=== PATIENT | male | born 1970 | race Caucasian/White ===

== ENCOUNTER 2017-10-15 05:17 | Inpatient (IN) | payer OTHER ==
[2017-10-15] MEDS ORDERED: ALBUTEROL SULFATE 2.5 MG/0.5 ML INH NEB SOLN As Ordered (05:53)
[2017-10-15] MEDS: ALBUTEROL SULFATE 2.5 MG/0.5 ML INH NEB SOLN NEB ×2 (05:57)
[2017-10-15] MEDS: methylPREDNISolone INJ 125 MG/2 ML VIAL (J2930) IV ×4 (06:00→23:51)
[2017-10-15 06:27] LABS: ABG BASE EXCESS 0.5 (-2.0-2.0); ABG HCO3 24.6 MEQ/L (22.0-26.0); ABG O2 SATURATION 98.6 % (95.0-99.0); ABG PARTIAL PRESSURE CO2 38.2 mmHg (35.0-45.0); ABG PARTIAL PRESSURE O2 130.5 mmHg (75.0-100.0); ABG STANDARD HCO3 24.9 MEQ/L (22.0-26.0); ABG TOTAL CO2 25.7 MEQ/L (22.0-29.0); ABG pH (ARTERIAL) 7.426 UNITS (7.350-7.450)
[2017-10-15] MEDS: CEFTRIAXONE SOD 2 GM in APPROPRIATE DILUENT 1 EA IV (06:30)
[2017-10-15 06:37] LABS: BASO # 0.1 10^3/uL (0.0-0.2); BASO % 0.4 % (0.0-1.0); HEMATOCRIT 51.8 % (42.0-52.0); HEMOGLOBIN 17.8 g/dl (14.0-18.0); IMMATURE GRANULOCYTE % 0.4 % (0-3.0); LYMPH # 1.2 10^3/uL (1.5-4.5); LYMPH % 5.4 % (24.0-44.0); MEAN CORPUSCULAR HEMOGLOBIN 31.7 pg (27.0-33.0); MEAN CORPUSCULAR HGB CONC 34.4 g/dl (32.0-36.5); MEAN CORPUSCULAR VOLUME 92.3 fl (80.0-96.0); MONO % 9.4 % (0.0-5.0); NEUTROPHILS # 18.9 10^3/uL (1.8-7.7); NEUTROPHILS % 84.4 % (36.0-66.0); PLATELET COUNT, AUTOMATED 315 10^3/uL (150-450); RED BLOOD COUNT 5.61 10^6/uL (4.30-6.10); RED CELL DISTRIBUTION WIDTH 13.1 % (11.5-14.5); WHITE BLOOD COUNT 22.4 10^3/uL (4.0-10.0)
[2017-10-15 06:40] LABS: MONO # 2.1 10^3/uL (0.0-0.8); POSITIVE DIFF POS FLAG
[2017-10-15 06:49] LABS: ANION GAP 7 MEQ/L (8-16); BLOOD UREA NITROGEN 10 MG/DL (7-18); CARBON DIOXIDE LEVEL 28 MEQ/L (21-32); CHLORIDE LEVEL 102 MEQ/L (98-107); CREATININE FOR GFR 0.81 MG/DL (0.70-1.30); GLOMERULAR FILTRATION RATE > 60.0 (>60); GLUCOSE, FASTING 138 MG/DL (70-100); POTASSIUM SERUM 4.5 MEQ/L (3.5-5.1); SODIUM LEVEL 137 MEQ/L (136-145)
[2017-10-15 06:53] LABS: LACTIC ACID SEPSIS PROTOCOL 1.2 MMOL/L (0.4-2.0)
[2017-10-15 07:18] LABS: ABG BASE EXCESS -0.7 (-2.0-2.0); ABG PARTIAL PRESSURE CO2 44.9 mmHg (35.0-45.0); ABG PARTIAL PRESSURE O2 66.1 mmHg (75.0-100.0); ABG STANDARD HCO3 23.7 MEQ/L (22.0-26.0); ABG TOTAL CO2 26.4 MEQ/L (22.0-29.0); ABG pH (ARTERIAL) 7.364 UNITS (7.350-7.450)
[2017-10-15] MEDS: LORazepam 2 MG/ML VIAL (J2060) IV (07:18)
[2017-10-15] MEDS ORDERED: ALBUTEROL SULFATE 2.5 MG/0.5 ML INH NEB SOLN INH (07:45)
[2017-10-15] MEDS ORDERED: ACETAMINOPHEN TAB 650MG DOSE (2X325MG) PO (07:45)
[2017-10-15] MEDS: NS 500 ML IV (07:45)
[2017-10-15] MEDS ORDERED: ONDANSETRON 4MG/2ML VIAL (J2405) IV (07:45)
[2017-10-15] MEDS ORDERED: ISOVUE-370 76% 100ML VIAL (Q9967) As Ordered (07:57)
[2017-10-15] MEDS: IPRATROPIUM 0.5MG/ALBUTEROL 2.5MG INH SOL UD 3ML (DUONEB)(J7620) NEB ×2 (08:00→20:02)
[2017-10-15 08:58] LABS: TROPONIN I < 0.02 NG/ML (< 0.10)
[2017-10-15 08:59] LABS: ALBUMIN 3.6 GM/DL (3.2-5.2); ALBUMIN/GLOBULIN RATIO 0.86 (1.00-1.93); ALKALINE PHOSPHATASE 85 U/L (45-117); ALT/SGPT 19 U/L (12-78); AST/SGOT 13 U/L (7-37); BILIRUBIN,DIRECT 0.2 MG/DL (0.0-0.2); BILIRUBIN,TOTAL 0.5 MG/DL (0.2-1.0); CK-MB VALUE MASS 1.9 NG/ML (0.0-3.6); CPK CREATINE PHOSPHOKINASE 66 U/L (39-308); MAGNESIUM LEVEL 2.2 MG/DL (1.8-2.4); MB/CK RELATIVE INDEX 2.87 (< OR =4); NT-PRO BNP 439 PG/ML (<125); TOTAL PROTEIN 7.8 GM/DL (6.4-8.2); TROPONIN I < 0.02 NG/ML (< 0.10)
[2017-10-15 09:00] LABS: CPK CREATINE PHOSPHOKINASE 67 U/L (39-308); MB/CK RELATIVE INDEX 2.98 (< OR =4)
[2017-10-15] MEDS: NICOTINE 21MG/24HR 1 EA TRANSDERMAL TD (09:00)
[2017-10-15] MEDS: AZITHROMYCIN INJ 500 MG, VIAL MATE ADAPTER 1 EACH in D5W 250 ML IV (09:16)
[2017-10-15] MEDS: PANTOPRAZOLE 40MG INJ (PROTONIX) (C9113) IV (09:16)
[2017-10-15] MEDS: NS 1,000 ML IV ×3 (09:56→23:53)
[2017-10-15] MEDS: ENOXAPARIN 40 MG/0.4 ML SYRINGE (J1650) SC (10:36)
[2017-10-16 04:26] LABS: HEMATOCRIT 46.3 % (42.0-52.0); MEAN CORPUSCULAR HEMOGLOBIN 31.6 pg (27.0-33.0); MEAN CORPUSCULAR HGB CONC 34.1 g/dl (32.0-36.5); MEAN CORPUSCULAR VOLUME 92.6 fl (80.0-96.0); PLATELET COUNT, AUTOMATED 317 10^3/uL (150-450); RED CELL DISTRIBUTION WIDTH 13.3 % (11.5-14.5); WHITE BLOOD COUNT 17.4 10^3/uL (4.0-10.0)
[2017-10-16 04:38] LABS: HEMOGLOBIN 15.8 g/dl (14.0-18.0)
[2017-10-16 04:50] LABS: ANION GAP 6 MEQ/L (8-16); BLOOD UREA NITROGEN 12 MG/DL (7-18); CALCIUM LEVEL 8.6 MG/DL (8.5-10.1); CARBON DIOXIDE LEVEL 30 MEQ/L (21-32); CHLORIDE LEVEL 105 MEQ/L (98-107); CREATININE FOR GFR 0.69 MG/DL (0.70-1.30); GLOMERULAR FILTRATION RATE > 60.0 (>60); GLUCOSE, FASTING 161 MG/DL (70-100); POTASSIUM SERUM 4.7 MEQ/L (3.5-5.1); SODIUM LEVEL 141 MEQ/L (136-145)
[2017-10-16] MEDS: CEFTRIAXONE SOD 2 GM in APPROPRIATE DILUENT 1 EA IV (06:12)
[2017-10-16] MEDS: methylPREDNISolone INJ 125 MG/2 ML VIAL (J2930) IV ×3 (06:12→17:44)
[2017-10-16] MEDS: AZITHROMYCIN INJ 500 MG, VIAL MATE ADAPTER 1 EACH in D5W 250 ML IV (07:36)
[2017-10-16] MEDS: PANTOPRAZOLE 40MG INJ (PROTONIX) (C9113) IV (08:40)
[2017-10-16] MEDS: ENOXAPARIN 40 MG/0.4 ML SYRINGE (J1650) SC (08:40)
[2017-10-16] MEDS: IPRATROPIUM 0.5MG/ALBUTEROL 2.5MG INH SOL UD 3ML (DUONEB)(J7620) NEB ×4 (08:49→20:00)
[2017-10-16] MEDS: NICOTINE 21MG/24HR 1 EA TRANSDERMAL TD (09:00)
[2017-10-16] MEDS: NS 1,000 ML IV (10:44)
[2017-10-17] MEDS: methylPREDNISolone INJ 125 MG/2 ML VIAL (J2930) IV ×5 (00:20→23:53)
[2017-10-17 05:56] LABS: HEMATOCRIT 45.1 % (42.0-52.0); HEMOGLOBIN 14.9 g/dl (14.0-18.0); MEAN CORPUSCULAR HEMOGLOBIN 31.5 pg (27.0-33.0); MEAN CORPUSCULAR VOLUME 95.3 fl (80.0-96.0); PLATELET COUNT, AUTOMATED 342 10^3/uL (150-450); RED BLOOD COUNT 4.73 10^6/uL (4.30-6.10); RED CELL DISTRIBUTION WIDTH 13.2 % (11.5-14.5); WHITE BLOOD COUNT 24.7 10^3/uL (4.0-10.0)
[2017-10-17 06:12] LABS: ANION GAP 3 MEQ/L (8-16); BLOOD UREA NITROGEN 13 MG/DL (7-18); CALCIUM LEVEL 8.5 MG/DL (8.5-10.1); CARBON DIOXIDE LEVEL 33 MEQ/L (21-32); CHLORIDE LEVEL 104 MEQ/L (98-107); GLOMERULAR FILTRATION RATE > 60.0 (>60); GLUCOSE, FASTING 136 MG/DL (70-100); POTASSIUM SERUM 4.4 MEQ/L (3.5-5.1); SODIUM LEVEL 140 MEQ/L (136-145)
[2017-10-17] MEDS: CEFTRIAXONE SOD 2 GM in APPROPRIATE DILUENT 1 EA IV (06:37)
[2017-10-17] MEDS: AZITHROMYCIN INJ 500 MG, VIAL MATE ADAPTER 1 EACH in D5W 250 ML IV (07:55)
[2017-10-17] MEDS: ENOXAPARIN 40 MG/0.4 ML SYRINGE (J1650) SC (07:55)
[2017-10-17] MEDS: NICOTINE 21MG/24HR 1 EA TRANSDERMAL TD (07:56)
[2017-10-17] MEDS: IPRATROPIUM 0.5MG/ALBUTEROL 2.5MG INH SOL UD 3ML (DUONEB)(J7620) NEB ×3 (08:07→20:08)
[2017-10-18] MEDS: CEFTRIAXONE SOD 2 GM in APPROPRIATE DILUENT 1 EA IV (06:06)
[2017-10-18] MEDS: methylPREDNISolone INJ 125 MG/2 ML VIAL (J2930) IV ×3 (06:06→17:12)
[2017-10-18 06:12] LABS: HEMATOCRIT 43.5 % (42.0-52.0); HEMOGLOBIN 14.5 g/dl (14.0-18.0); MEAN CORPUSCULAR HEMOGLOBIN 31.8 pg (27.0-33.0); MEAN CORPUSCULAR HGB CONC 33.3 g/dl (32.0-36.5); MEAN CORPUSCULAR VOLUME 95.4 fl (80.0-96.0); PLATELET COUNT, AUTOMATED 341 10^3/uL (150-450); RED BLOOD COUNT 4.56 10^6/uL (4.30-6.10); RED CELL DISTRIBUTION WIDTH 13.2 % (11.5-14.5)
[2017-10-18 06:46] LABS: ANION GAP 5 MEQ/L (8-16); BLOOD UREA NITROGEN 17 MG/DL (7-18); CALCIUM LEVEL 8.5 MG/DL (8.5-10.1); CARBON DIOXIDE LEVEL 34 MEQ/L (21-32); CHLORIDE LEVEL 104 MEQ/L (98-107); CREATININE FOR GFR 0.74 MG/DL (0.70-1.30); GLOMERULAR FILTRATION RATE > 60.0 (>60); GLUCOSE, FASTING 133 MG/DL (70-100); POTASSIUM SERUM 4.1 MEQ/L (3.5-5.1); SODIUM LEVEL 143 MEQ/L (136-145)
[2017-10-18] MEDS: IPRATROPIUM 0.5MG/ALBUTEROL 2.5MG INH SOL UD 3ML (DUONEB)(J7620) NEB ×4 (07:24→20:59)
[2017-10-18] MEDS: ENOXAPARIN 40 MG/0.4 ML SYRINGE (J1650) SC (08:42)
[2017-10-18] MEDS: NICOTINE 21MG/24HR 1 EA TRANSDERMAL TD (08:42)
[2017-10-19] MEDS: methylPREDNISolone INJ 125 MG/2 ML VIAL (J2930) IV ×5 (00:30→23:21)
[2017-10-19] MEDS: CEFTRIAXONE SOD 2 GM in APPROPRIATE DILUENT 1 EA IV (06:34)
[2017-10-19 06:35] LABS: HEMATOCRIT 43.5 % (42.0-52.0); HEMOGLOBIN 14.6 g/dl (14.0-18.0); MEAN CORPUSCULAR HEMOGLOBIN 31.7 pg (27.0-33.0); MEAN CORPUSCULAR HGB CONC 33.6 g/dl (32.0-36.5); MEAN CORPUSCULAR VOLUME 94.4 fl (80.0-96.0); PLATELET COUNT, AUTOMATED 343 10^3/uL (150-450); RED BLOOD COUNT 4.61 10^6/uL (4.30-6.10); RED CELL DISTRIBUTION WIDTH 12.9 % (11.5-14.5); WHITE BLOOD COUNT 16.1 10^3/uL (4.0-10.0)
[2017-10-19 06:49] LABS: ANION GAP 4 MEQ/L (8-16); BLOOD UREA NITROGEN 16 MG/DL (7-18); CALCIUM LEVEL 8.9 MG/DL (8.5-10.1); CARBON DIOXIDE LEVEL 35 MEQ/L (21-32); CHLORIDE LEVEL 100 MEQ/L (98-107); CREATININE FOR GFR 0.59 MG/DL (0.70-1.30); GLOMERULAR FILTRATION RATE > 60.0 (>60); GLUCOSE, FASTING 122 MG/DL (70-100); POTASSIUM SERUM 4.4 MEQ/L (3.5-5.1); SODIUM LEVEL 139 MEQ/L (136-145)
[2017-10-19] MEDS: IPRATROPIUM 0.5MG/ALBUTEROL 2.5MG INH SOL UD 3ML (DUONEB)(J7620) NEB ×3 (07:42→14:48)
[2017-10-19 08:07] LABS: ALPHA 1 ANTITRYPSIN 109 mg/dL (90-200)
[2017-10-19] MEDS: ENOXAPARIN 40 MG/0.4 ML SYRINGE (J1650) SC (09:35)
[2017-10-19] MEDS: NICOTINE 21MG/24HR 1 EA TRANSDERMAL TD (09:37)
[2017-10-20] MEDS: IPRATROPIUM 0.5MG/ALBUTEROL 2.5MG INH SOL UD 3ML (DUONEB)(J7620) NEB ×5 (00:07→19:53)
[2017-10-20] MEDS: methylPREDNISolone INJ 125 MG/2 ML VIAL (J2930) IV ×4 (06:03→23:56)
[2017-10-20] MEDS: CEFTRIAXONE SOD 2 GM in APPROPRIATE DILUENT 1 EA IV (06:04)
[2017-10-20 07:56] LABS: HEMATOCRIT 44.4 % (42.0-52.0); HEMOGLOBIN 15.2 g/dl (14.0-18.0); MEAN CORPUSCULAR HEMOGLOBIN 31.7 pg (27.0-33.0); MEAN CORPUSCULAR HGB CONC 34.2 g/dl (32.0-36.5); MEAN CORPUSCULAR VOLUME 92.7 fl (80.0-96.0); PLATELET COUNT, AUTOMATED 338 10^3/uL (150-450); RED BLOOD COUNT 4.79 10^6/uL (4.30-6.10); RED CELL DISTRIBUTION WIDTH 12.8 % (11.5-14.5); WHITE BLOOD COUNT 12.7 10^3/uL (4.0-10.0)
[2017-10-20 08:09] LABS: ANION GAP 4 MEQ/L (8-16); BLOOD UREA NITROGEN 17 MG/DL (7-18); CALCIUM LEVEL 8.7 MG/DL (8.5-10.1); CARBON DIOXIDE LEVEL 33 MEQ/L (21-32); CHLORIDE LEVEL 99 MEQ/L (98-107); CREATININE FOR GFR 0.64 MG/DL (0.70-1.30); GLOMERULAR FILTRATION RATE > 60.0 (>60); GLUCOSE, FASTING 112 MG/DL (70-100); POTASSIUM SERUM 4.2 MEQ/L (3.5-5.1); SODIUM LEVEL 136 MEQ/L (136-145)
[2017-10-20] MEDS: NICOTINE 21MG/24HR 1 EA TRANSDERMAL TD (09:00)
[2017-10-20] MEDS: ENOXAPARIN 40 MG/0.4 ML SYRINGE (J1650) SC (09:25)
[2017-10-20] MEDS: SLF 3 ML SYR IV (23:56)
[2017-10-21 00:06] LABS: A1A FOR PHENOTYPE 108 mg/dL (90-200); ALPHA-1-ANTITRYPSIN PHENOTYPE MZ (.)
[2017-10-21] MEDS: methylPREDNISolone INJ 125 MG/2 ML VIAL (J2930) IV ×2 (06:44→18:20)
[2017-10-21] MEDS: CEFTRIAXONE SOD 2 GM in APPROPRIATE DILUENT 1 EA IV (06:44)
[2017-10-21] MEDS: SLF 3 ML SYR IV ×4 (06:45→21:19)
[2017-10-21 06:55] LABS: HEMATOCRIT 45.4 % (42.0-52.0); HEMOGLOBIN 15.4 g/dl (14.0-18.0); MEAN CORPUSCULAR HEMOGLOBIN 31.7 pg (27.0-33.0); MEAN CORPUSCULAR HGB CONC 33.9 g/dl (32.0-36.5); MEAN CORPUSCULAR VOLUME 93.4 fl (80.0-96.0); PLATELET COUNT, AUTOMATED 359 10^3/uL (150-450); RED BLOOD COUNT 4.86 10^6/uL (4.30-6.10); RED CELL DISTRIBUTION WIDTH 12.8 % (11.5-14.5); WHITE BLOOD COUNT 18.6 10^3/uL (4.0-10.0)
[2017-10-21 07:18] LABS: ANION GAP 4 MEQ/L (8-16); BLOOD UREA NITROGEN 20 MG/DL (7-18); CALCIUM LEVEL 8.8 MG/DL (8.5-10.1); CARBON DIOXIDE LEVEL 34 MEQ/L (21-32); CHLORIDE LEVEL 102 MEQ/L (98-107); CREATININE FOR GFR 0.81 MG/DL (0.70-1.30); GLOMERULAR FILTRATION RATE > 60.0 (>60); GLUCOSE, FASTING 120 MG/DL (70-100); POTASSIUM SERUM 4.3 MEQ/L (3.5-5.1); SODIUM LEVEL 140 MEQ/L (136-145)
[2017-10-21] MEDS: IPRATROPIUM 0.5MG/ALBUTEROL 2.5MG INH SOL UD 3ML (DUONEB)(J7620) NEB ×4 (07:32→20:00)
[2017-10-21] MEDS: NICOTINE 21MG/24HR 1 EA TRANSDERMAL TD (08:48)
[2017-10-21] MEDS: ENOXAPARIN 40 MG/0.4 ML SYRINGE (J1650) SC (08:48)
[2017-10-22] MEDS: methylPREDNISolone INJ 125 MG/2 ML VIAL (J2930) IV ×2 (05:48→18:04)
[2017-10-22] MEDS: SLF 3 ML SYR IV ×4 (05:49→20:39)
[2017-10-22] MEDS: CEFTRIAXONE SOD 2 GM in APPROPRIATE DILUENT 1 EA IV (06:45)
[2017-10-22 07:20] LABS: HEMATOCRIT 44.1 % (42.0-52.0); HEMOGLOBIN 15.3 g/dl (14.0-18.0); MEAN CORPUSCULAR HEMOGLOBIN 32.1 pg (27.0-33.0); MEAN CORPUSCULAR HGB CONC 34.7 g/dl (32.0-36.5); MEAN CORPUSCULAR VOLUME 92.6 fl (80.0-96.0); PLATELET COUNT, AUTOMATED 352 10^3/uL (150-450); RED BLOOD COUNT 4.76 10^6/uL (4.30-6.10); RED CELL DISTRIBUTION WIDTH 12.9 % (11.5-14.5); WHITE BLOOD COUNT 14.8 10^3/uL (4.0-10.0)
[2017-10-22 07:42] LABS: ANION GAP 6 MEQ/L (8-16); BLOOD UREA NITROGEN 17 MG/DL (7-18); CALCIUM LEVEL 8.2 MG/DL (8.5-10.1); CARBON DIOXIDE LEVEL 31 MEQ/L (21-32); CHLORIDE LEVEL 101 MEQ/L (98-107); CREATININE FOR GFR 0.62 MG/DL (0.70-1.30); GLOMERULAR FILTRATION RATE > 60.0 (>60); GLUCOSE, FASTING 83 MG/DL (70-100); POTASSIUM SERUM 4.1 MEQ/L (3.5-5.1); SODIUM LEVEL 138 MEQ/L (136-145)
[2017-10-22] MEDS: IPRATROPIUM 0.5MG/ALBUTEROL 2.5MG INH SOL UD 3ML (DUONEB)(J7620) NEB (08:13)
[2017-10-22] MEDS: ENOXAPARIN 40 MG/0.4 ML SYRINGE (J1650) SC (08:26)
[2017-10-22] MEDS: NICOTINE 21MG/24HR 1 EA TRANSDERMAL TD (08:26)
[2017-10-23] MEDS: CEFTRIAXONE SOD 2 GM in APPROPRIATE DILUENT 1 EA IV (06:06)
[2017-10-23] MEDS: SLF 3 ML SYR IV (06:06)
[2017-10-23] MEDS: predniSONE 20 MG TAB PO (08:02)
== END 2017-10-23 09:30 | disposition home or self-care (01) | DRG 193 ==
LOC: M MSPAV 10-16 17:12 → M PED 10-19 22:49 → M ED 05:17 → M ED INP 07:42 → M ICU 10:42
DX: J10.1 Influenza due to other identified influenza virus with other respiratory manifestations (principal); J96.01 Acute respiratory failure with hypoxia; J44.1 Chronic obstructive pulmonary disease with (acute) exacerbation; J44.0 Chronic obstructive pulmonary disease with (acute) lower respiratory infection; F17.210 Nicotine dependence, cigarettes, uncomplicated; Z79.82 Long term (current) use of aspirin; Z79.899 Other long term (current) drug therapy

== ENCOUNTER 2018-10-14 16:27 | Inpatient (IN) | payer OTHER ==
[~2018-10-14] VITALS: Ht 167.6 cm; Wt 67.6 kg
[~2018-10-14 16:27] MED LIST: ASPI81TAEC PO; CEFD1CAP8 PO; PRED10TA2 PO; VITA-121 PO; [UNRECOGNIZED DRUG - CODE] PO
[2018-10-14 16:40] LABS: HEMATOCRIT 45.3 % (42.0-52.0); HEMOGLOBIN 15.6 g/dl (13.5-17.5); MEAN CORPUSCULAR HEMOGLOBIN 32.9 pg (27.0-33.0); MEAN CORPUSCULAR HGB CONC 34.4 g/dl (32.0-36.5); MEAN CORPUSCULAR VOLUME 95.6 fl (80.0-96.0); PLATELET COUNT, AUTOMATED 214 10^3/uL (150-450); RED BLOOD COUNT 4.74 10^6/uL (4.30-6.10)
[2018-10-14 16:41] LABS: WHITE BLOOD COUNT 12.9 10^3/uL (4.0-10.0)
[2018-10-14] MEDS ORDERED: ISOVUE-370 76% 100ML VIAL (Q9967) As Ordered ONE (16:41)
[2018-10-14] MEDS ORDERED: ADACEL/BOOSTRIX VACCINE (DIPHTH/PERTUSS/ACELL/TETANUS)0.5ML SYR (90715) IM ONE (16:45)
[2018-10-14] MEDS ORDERED: NS 1,000 ML IV ONE ×2 (16:45)
[2018-10-14 16:50] LABS: INR 0.94; PROTHROMBIN TIME 12.7 SECONDS (12.1-14.4)
[2018-10-14 16:51] LABS: PARTIAL THROMBOPLASTIN TIME 22.5 SECONDS (25.4-37.6)
[2018-10-14 17:00] LABS: ATYPICAL LYMPH 6 % (0-5); EOSINOPHILS 3 % (0-5); LYMPHOCYTES 47 % (16-52); MONOCYTES 3 % (0-8); NEUTROPHILS 41 % (35-75); PLATELET ESTIMATE NORMAL (NORMAL)
[2018-10-14 17:03] LABS: ALBUMIN 3.6 GM/DL (3.2-5.2); ALT/SGPT 18 U/L (12-78); AMYLASE 37 U/L (25-115); BILIRUBIN,DIRECT 0.2 MG/DL (0.0-0.2); BILIRUBIN,TOTAL 0.7 MG/DL (0.2-1.0); BLOOD UREA NITROGEN 9 MG/DL (7-18); CALCIUM LEVEL 7.6 MG/DL (8.5-10.1); CARBON DIOXIDE LEVEL 20 MEQ/L (21-32); CHLORIDE LEVEL 108 MEQ/L (98-107); CPK CREATINE PHOSPHOKINASE 100 U/L (39-308); CREATININE FOR GFR 0.88 MG/DL (0.70-1.30); ETHYL ALCOHOL (ETHANOL) 0.044 % (0.000-0.010); GLOMERULAR FILTRATION RATE > 60.0 (>60); GLUCOSE, FASTING 92 MG/DL (70-100); LIPASE 156 U/L (73-393); POTASSIUM SERUM 3.2 MEQ/L (3.5-5.1); SODIUM LEVEL 138 MEQ/L (136-145); TOTAL PROTEIN 5.5 GM/DL (6.4-8.2); TROPONIN I 0.02 NG/ML (< 0.10)
[2018-10-14] MEDS ORDERED: NS 1,000 ML IV SCH (17:05)
--- NOTE | 2018-10-14 17:17 | REP ---
CT of the chest with IV contrast: There is an anterior chest wall wound to the right of midline over the heart. There is focal soft tissue density interposed between the heart and the anterior chest wall which may represent a mediastinal hematoma. No other mediastinal hematoma is identified. There is a pericardial effusion measuring 12 mm in depth posteriorly and 4 mm in depth anteriorly. There is a focal crescentic shaped thin air collection over the anterior margin of the heart on image 96. This could represent a pneumomediastinum or pneumopericardium. There is no pneumothorax. There is no hemothorax. Lung rosales otherwise clear. The thoracic aorta is unremarkable. Cardiac size is normal. No rib or sternal fractures are identified. No clavicle or scapular fractures are identified. Impression: Anterior chest wall wound to the right of midline at the level of the heart. Focal soft tissue density in the anterior mediastinum anterior to the heart on the right, likely a mediastinal hematoma. Small pericardial effusion. Sliver of air in the anterior mediastinum. This could be a pneumomediastinum or pneumopericardium. No pneumothorax or hemothorax. Lung rosales otherwise clear. The ground-glass densities identified on the prior study are no longer present. No fractures are identified. Electronically Signed by Wenceslao Kimble MD 10/14/2018 05:08 P
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
[2018-10-14 17:56] LABS: AMPHETAMINES LEVEL URINE NEGATIVE (NEGATIVE); BARBITURATES URINE NEGATIVE (NEGATIVE); BENZODIAZEPINES URINE NEGATIVE (NEGATIVE); CANNABINOIDS URINE NEGATIVE (NEGATIVE); COCAINE METABOLITE URINE NEGATIVE (NEGATIVE); METHADONE URINE NEGATIVE (NEGATIVE); OPIATES URINE NEGATIVE (NEGATIVE); PHENCYCLIDINE URINE NEGATIVE (NEGATIVE)
[2018-10-14] MEDS ORDERED: METAL LOCK LOOP XX ONE (18:00)
[2018-10-14] MEDS ORDERED: VITA1CAP2 PO (18:09)
[2018-10-14] MEDS ORDERED: ANOR1AER INH (18:09)
[2018-10-14] MEDS ORDERED: IBUPOTC PO (18:09)
[2018-10-14] MEDS ORDERED: MUPIROCIN 2% OINT 22 GM TUBE As Ordered ONE (18:13)
[2018-10-14] MEDS ORDERED: BUPIVACAINE LIPOSOME/PF 1.3% 20ML VIAL (13.3MG/ML)(EXPAREL)(C9290 PER1MG) As Ordered ONE (18:13)
[2018-10-14] MEDS ORDERED: BUPIVACAINE HCL 0.5% 10 ML VIAL As Ordered ONE (18:13)
[2018-10-14] MEDS ORDERED: MIDAZOLAM INJ 2 MG/2 ML VIAL (J2250) As Ordered ONE (19:03)
[2018-10-14] MEDS ORDERED: PROPOFOL 200 MG/20 ML VIAL As Ordered ONE (19:03)
[2018-10-14] MEDS ORDERED: fentaNYL 100 MCG/2 ML INJECTION (J3010) As Ordered ONE ×3 (19:03→21:21)
[2018-10-14] MEDS ORDERED: LIDOCAINE 2% INJ 100 MG/5 ML SDV (FOR ANES.) As Ordered ONE (19:03)
[2018-10-14] MEDS ORDERED: ROCURONIUM BROMIDE 50 MG/5 ML VIAL As Ordered ONE ×2 (19:05→19:39)
[2018-10-14] MEDS ORDERED: ePHEDrine SULFATE 25 MG/5 ML(5MG/ML) SYRINGE As Ordered ONE (19:05)
[2018-10-14] MEDS ORDERED: PHENYLephrine HCL 500 MCG/5 ML (100MCG/ML) SYRINGE (J2370) As Ordered ONE (19:05)
[2018-10-14] MEDS ORDERED: SUCCINYLCHOLINE 100 MG/5 ML SYRINGE (J0330) As Ordered ONE (19:06)
[2018-10-14] MEDS ORDERED: ceFAZolin 2 GM/D5W 50 ML IV BAG (J0690 PER 500MG) As Ordered ONE (19:13)
[2018-10-14] MEDS ORDERED: KCL 10MEQ IN STERILE WATER 100ML As Ordered ONE (19:54)
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
[2018-10-14] MEDS ORDERED: ONDANSETRON 4MG/2ML VIAL (J2405) As Ordered ONE (20:07)
[2018-10-14] MEDS ORDERED: dexameTHASONE 4 MG/ML 1ML VIAL (J1100) As Ordered ONE (20:07)
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
[2018-10-14] MEDS ORDERED: SUGAMMADEX SODIUM 500 MG/5 ML VIAL (BRIDION) As Ordered ONE (20:21)
[2018-10-14] MEDS ORDERED: LEVALBUTEROL 1.25 MG/0.5 ML CONCENTRATE NEB NEB PRN (21:00)
[2018-10-14] MEDS ORDERED: PERCOCET 5MG/325MG TAB PO PRN ×3 (21:00→22:45)
[2018-10-14] MEDS ORDERED: ACETAMINOPHEN TAB 650MG DOSE (2X325MG) PO PRN (21:00)
[2018-10-14] MEDS ORDERED: ONDANSETRON 4MG/2ML VIAL (J2405) IV PRN ×2 (21:00→22:45)
[2018-10-14] MEDS ORDERED: BISACODYL 10 MG SUPP PR PRN (21:00)
[2018-10-14] MEDS ORDERED: NORCO, ANEXSIA 5/325MG TABLET (HYDROcodone/ACETAMINOPHEN) PO PRN (21:00)
[2018-10-14] MEDS: fentaNYL 100 MCG/2 ML INJECTION (J3010) IV PRN ×4 (21:20→21:37)
[2018-10-14 21:38] LABS: ABG HCO3 19.5 MEQ/L (22.0-26.0); ABG O2 SATURATION 93.8 % (95.0-99.0); ABG PARTIAL PRESSURE CO2 42.7 mmHg (35.0-45.0); ABG PARTIAL PRESSURE O2 75.8 mmHg (75.0-100.0); ABG STANDARD HCO3 18.7 MEQ/L (22.0-26.0); ABG TOTAL CO2 20.8 MEQ/L (22.0-29.0); ABG pH (ARTERIAL) 7.277 UNITS (7.350-7.450)
[2018-10-14 21:45] LABS: BASO # 0.1 10^3/uL (0.0-0.2); BASO % 0.5 % (0.0-1.0); EOS # 0.2 10^3/uL (0.0-0.50); EOS % 1.1 % (0.0-3.0); LYMPH # 1.8 10^3/uL (1.5-4.5); LYMPH % 12.5 % (24.0-44.0); MEAN CORPUSCULAR HEMOGLOBIN 32.8 pg (27.0-33.0); MEAN CORPUSCULAR HGB CONC 33.6 g/dl (32.0-36.5); MEAN CORPUSCULAR VOLUME 97.5 fl (80.0-96.0); MONO # 0.7 10^3/uL (0.0-0.8); MONO % 4.7 % (0.0-5.0); NEUTROPHILS # 11.7 10^3/uL (1.8-7.7); NEUTROPHILS % 80.3 % (36.0-66.0); PLATELET COUNT, AUTOMATED 185 10^3/uL (150-450); WHITE BLOOD COUNT 14.5 10^3/uL (4.0-10.0)
[2018-10-14 21:48] LABS: HEMOGLOBIN 13.1 g/dl (13.5-17.5)
[2018-10-14 21:59] LABS: BLOOD UREA NITROGEN 8 MG/DL (7-18); CALCIUM LEVEL 7.5 MG/DL (8.5-10.1); CARBON DIOXIDE LEVEL 22 MEQ/L (21-32); CHLORIDE LEVEL 107 MEQ/L (98-107); GLOMERULAR FILTRATION RATE > 60.0 (>60); GLUCOSE, FASTING 117 MG/DL (70-100); SODIUM LEVEL 136 MEQ/L (136-145)
[2018-10-14] MEDS ORDERED: METOCLOPRAMIDE INJ 10MG/2ML VIAL (J2765) IV PRN (22:45)
[2018-10-14] MEDS ORDERED: MEPERIDINE INJ 25 MG/ML VIAL (J2175) IV PRN (22:45)
[2018-10-14] MEDS ORDERED: LR 1,000 ML IV SCH (22:45)
[2018-10-14 22:50] VITALS: BP 110/72
[2018-10-14 23:00] VITALS: BP 102/69
[2018-10-14] MEDS: KCL 20MEQ IN D5/NS 1000ML 1,000 ML IV SCH (23:01)
[2018-10-14] MEDS: DOCUSATE SODIUM 100 MG CAP PO SCH (23:13)
[2018-10-14] MEDS: HEPARIN SOD (PORCINE) 5000 UNITS/ML VIAL SC SCH (23:13)
[2018-10-15] VITALS (7 sets, daily range): BP systolic 92–120; BP diastolic 59–76
[2018-10-15] MEDS: KETOROLAC 30 MG/ML VIAL (J1885) IV SCH ×4 (00:05→18:17)
[2018-10-15] MEDS: ceFAZolin SOD 1 GM in D5W MINI-BAG PLUS 50 ML IV SCH ×3 (02:07→18:16)
[2018-10-15] MEDS: LEVALBUTEROL 1.25 MG/0.5 ML CONCENTRATE NEB NEB SCH ×4 (02:09→20:18)
[2018-10-15 04:30] LABS: BASO # 0.1 10^3/uL (0.0-0.2); BASO % 0.3 % (0.0-1.0); EOS % 0.1 % (0.0-3.0); HEMATOCRIT 40.4 % (42.0-52.0); HEMOGLOBIN 13.5 g/dl (13.5-17.5); LYMPH # 1.2 10^3/uL (1.5-4.5); LYMPH % 8.3 % (24.0-44.0); MEAN CORPUSCULAR HEMOGLOBIN 32.1 pg (27.0-33.0); MEAN CORPUSCULAR HGB CONC 33.4 g/dl (32.0-36.5); MONO # 0.9 10^3/uL (0.0-0.8); MONO % 6.3 % (0.0-5.0); NEUTROPHILS # 12.2 10^3/uL (1.8-7.7); NEUTROPHILS % 84.6 % (36.0-66.0); PLATELET COUNT, AUTOMATED 184 10^3/uL (150-450); RED BLOOD COUNT 4.21 10^6/uL (4.30-6.10); WHITE BLOOD COUNT 14.4 10^3/uL (4.0-10.0)
[2018-10-15 04:46] LABS: BLOOD UREA NITROGEN 8 MG/DL (7-18); CALCIUM LEVEL 7.6 MG/DL (8.5-10.1); CARBON DIOXIDE LEVEL 23 MEQ/L (21-32); CHLORIDE LEVEL 108 MEQ/L (98-107); CREATININE FOR GFR 0.87 MG/DL (0.70-1.30); GLOMERULAR FILTRATION RATE > 60.0 (>60); GLUCOSE, FASTING 171 MG/DL (70-100); POTASSIUM SERUM 4.3 MEQ/L (3.5-5.1); SODIUM LEVEL 135 MEQ/L (136-145)
[2018-10-15 05:32] LABS: ABG BASE EXCESS -2.8 (-2.0-2.0); ABG HCO3 21.9 MEQ/L (22.0-26.0); ABG O2 SATURATION 96.8 % (95.0-99.0); ABG PARTIAL PRESSURE O2 86.5 mmHg (75.0-100.0); ABG STANDARD HCO3 22.1 MEQ/L (22.0-26.0); ABG pH (ARTERIAL) 7.378 UNITS (7.350-7.450)
[2018-10-15] MEDS: TIOTROPIUM INHALER/CAPSULE (SPIRIVA) INH SCH (08:01)
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
[2018-10-15] MEDS: MOM 30ML SUSPENSION UDC PO SCH (09:00)
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
[2018-10-15] MEDS: PANTOPRAZOLE 40MG TAB (PROTONIX) PO SCH (09:28)
[2018-10-15] MEDS: HEPARIN SOD (PORCINE) 5000 UNITS/ML VIAL SC SCH ×2 (09:28→21:14)
[2018-10-15] MEDS: DOCUSATE SODIUM 100 MG CAP PO SCH ×2 (09:28→20:23)
[2018-10-15] MEDS: KCL 20MEQ IN D5/NS 1000ML 1,000 ML IV SCH (10:20)
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
--- NOTE | 2018-10-15 19:30 | ECGEPIP ---
Stationary ECG Study [facility] - ED Test Date: 2018-10-14 Pat Name: KEITH OAKES Department: Room: [place] [address] Gender: M [employer] R[employer] Clerk: vick : 1970 Requested By: OG Shields Order Number: [id number] Reading MD: Luda Bowman Measurements Intervals [place] Rate: 70 P: 80 SC: 158 QRS: 80 QRSD: 118 T: 51 QT: 399 QTc: 431 Interpretive Statements SINUS RHYTHM INDETERMINATE AXIS INCOMPLETE RIGHT BUNDLE BRANCH BLOCK PROBABLE INFERIOR MYOCARDIAL INFARCTION, PROBABLY OLD NO PRIOR FOR COMPARISON Electronically Signed On 10-15-2018 19:30:15 EST by Luda Bowman
[2018-10-16] VITALS: BP 100/64
[2018-10-16] MEDS: KCL 20MEQ IN D5/NS 1000ML 1,000 ML IV SCH (00:24)
[2018-10-16] MEDS: KETOROLAC 30 MG/ML VIAL (J1885) IV SCH ×4 (00:25→18:07)
[2018-10-16] MEDS: LEVALBUTEROL 1.25 MG/0.5 ML CONCENTRATE NEB NEB SCH ×4 (01:45→20:19)
[2018-10-16] MEDS: ceFAZolin SOD 1 GM in D5W MINI-BAG PLUS 50 ML IV SCH ×3 (03:08→18:07)
[2018-10-16 04:00] VITALS: BP 103/66
[2018-10-16 05:04] LABS: BASO % 0.3 % (0.0-1.0); EOS # 0.1 10^3/uL (0.0-0.50); EOS % 0.7 % (0.0-3.0); HEMATOCRIT 36.2 % (42.0-52.0); HEMOGLOBIN 12.1 g/dl (13.5-17.5); LYMPH # 1.9 10^3/uL (1.5-4.5); LYMPH % 16.2 % (24.0-44.0); MEAN CORPUSCULAR HEMOGLOBIN 32.4 pg (27.0-33.0); MEAN CORPUSCULAR HGB CONC 33.4 g/dl (32.0-36.5); MEAN CORPUSCULAR VOLUME 96.8 fl (80.0-96.0); MONO # 0.9 10^3/uL (0.0-0.8); MONO % 7.6 % (0.0-5.0); NEUTROPHILS # 8.7 10^3/uL (1.8-7.7); NEUTROPHILS % 74.7 % (36.0-66.0); PLATELET COUNT, AUTOMATED 162 10^3/uL (150-450); RED BLOOD COUNT 3.74 10^6/uL (4.30-6.10); WHITE BLOOD COUNT 11.7 10^3/uL (4.0-10.0)
[2018-10-16 05:18] LABS: BLOOD UREA NITROGEN 11 MG/DL (7-18); CALCIUM LEVEL 7.8 MG/DL (8.5-10.1); CARBON DIOXIDE LEVEL 27 MEQ/L (21-32); CHLORIDE LEVEL 109 MEQ/L (98-107); CREATININE FOR GFR 0.89 MG/DL (0.70-1.30); GLOMERULAR FILTRATION RATE > 60.0 (>60); GLUCOSE, FASTING 121 MG/DL (70-100); POTASSIUM SERUM 4.5 MEQ/L (3.5-5.1); SODIUM LEVEL 139 MEQ/L (136-145)
[2018-10-16] MEDS: TIOTROPIUM INHALER/CAPSULE (SPIRIVA) INH SCH (07:30)
[2018-10-16 08:00] VITALS: BP 97/74
[2018-10-16] MEDS: HEPARIN SOD (PORCINE) 5000 UNITS/ML VIAL SC SCH ×2 (08:52→21:13)
[2018-10-16] MEDS: MOM 30ML SUSPENSION UDC PO SCH (08:52)
[2018-10-16] MEDS: PANTOPRAZOLE 40MG TAB (PROTONIX) PO SCH (08:52)
[2018-10-16] MEDS: DOCUSATE SODIUM 100 MG CAP PO SCH ×2 (08:52→21:13)
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
[2018-10-16 12:00] VITALS: BP 102/69
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
[2018-10-16 16:00] VITALS: BP 98/68
[2018-10-16 20:00] VITALS: BP 107/63
[2018-10-17] VITALS: BP 106/63
[2018-10-17] MEDS: KETOROLAC 30 MG/ML VIAL (J1885) IV SCH ×4 (00:40→18:00)
[2018-10-17] MEDS: LEVALBUTEROL 1.25 MG/0.5 ML CONCENTRATE NEB NEB SCH ×4 (00:47→19:50)
[2018-10-17 04:00] VITALS: BP 122/87
[2018-10-17 05:29] LABS: BASO # 0.1 10^3/uL (0.0-0.2); BASO % 0.5 % (0.0-1.0); EOS # 0.3 10^3/uL (0.0-0.50); EOS % 2.6 % (0.0-3.0); HEMATOCRIT 37.3 % (42.0-52.0); HEMOGLOBIN 12.5 g/dl (13.5-17.5); LYMPH # 1.8 10^3/uL (1.5-4.5); LYMPH % 17.9 % (24.0-44.0); MEAN CORPUSCULAR HEMOGLOBIN 32.3 pg (27.0-33.0); MEAN CORPUSCULAR HGB CONC 33.5 g/dl (32.0-36.5); MEAN CORPUSCULAR VOLUME 96.4 fl (80.0-96.0); MONO # 0.8 10^3/uL (0.0-0.8); MONO % 8.3 % (0.0-5.0); NEUTROPHILS # 7.1 10^3/uL (1.8-7.7); NEUTROPHILS % 70.4 % (36.0-66.0); PLATELET COUNT, AUTOMATED 176 10^3/uL (150-450); RED BLOOD COUNT 3.87 10^6/uL (4.30-6.10); WHITE BLOOD COUNT 10.1 10^3/uL (4.0-10.0)
[2018-10-17 05:50] LABS: BLOOD UREA NITROGEN 14 MG/DL (7-18); CARBON DIOXIDE LEVEL 26 MEQ/L (21-32); CHLORIDE LEVEL 110 MEQ/L (98-107); CREATININE FOR GFR 0.87 MG/DL (0.70-1.30); GLOMERULAR FILTRATION RATE > 60.0 (>60); GLUCOSE, FASTING 95 MG/DL (70-100); POTASSIUM SERUM 4.2 MEQ/L (3.5-5.1); SODIUM LEVEL 140 MEQ/L (136-145)
[2018-10-17] MEDS: TIOTROPIUM INHALER/CAPSULE (SPIRIVA) INH SCH (07:38)
[2018-10-17 08:00] VITALS: BP 128/82
[2018-10-17] MEDS ORDERED: ALEV220C2 PO (08:28)
--- NOTE | 2018-10-17 08:30 | REP ---
PA and lateral chest: Comparison is 10/16/2018. The previous two right thoracotomy tubes are no longer present. Skin morelia are again noted inferomedially in the right hemithorax, unchanged. There is a right pleural fluid collection that has increased in size. The left costophrenic angle is mildly effaced, unchanged. The lung rosales otherwise clear. There is no pneumothorax. No visible pneumomediastinum. Cardiac size is normal. [place], mediastinum, skeletal structures are unremarkable. Electronically Signed by Wenceslao Kimble MD 10/17/2018 08:21 A
[2018-10-17] MEDS: MOM 30ML SUSPENSION UDC PO SCH (09:00)
[2018-10-17] MEDS: HEPARIN SOD (PORCINE) 5000 UNITS/ML VIAL SC SCH ×2 (09:00→20:17)
[2018-10-17] MEDS: DOCUSATE SODIUM 100 MG CAP PO SCH ×2 (09:10→20:17)
[2018-10-17] MEDS: PANTOPRAZOLE 40MG TAB (PROTONIX) PO SCH (09:10)
[2018-10-17 16:00] VITALS: BP 112/70
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
[2018-10-17 20:00] VITALS: BP 112/74
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
== END 2018-10-17 21:50 | disposition home or self-care (01) | DRG 278 ==
LOC: EDBD 16:27 → M ED 16:27 → M ED INP 20:48 → M ICU 22:48 → M PCU 10-15 12:54 → UNDODISIN 10-15 16:48
PROVIDERS: ADMIT Thoracic Surgery (Cardiothoracic Vascular Surgery); ATTEND Thoracic Surgery (Cardiothoracic Vascular Surgery)
PROC: 02CN0ZZ Extirpation of Matter from Pericardium, Open Approach (ICD-10-PCS; principal; 2018-10-14 18:00)
DX: S26.09XA Other injury of heart with hemopericardium, initial encounter (principal); S21.91XA Laceration without foreign body of unspecified part of thorax, initial encounter; J44.9 Chronic obstructive pulmonary disease, unspecified; F17.200 Nicotine dependence, unspecified, uncomplicated; Z79.82 Long term (current) use of aspirin; Z79.899 Other long term (current) drug therapy; X99.1XXA Assault by knife, initial encounter; Y92.009 Unspecified place in unspecified non-institutional (private) residence as the place of occurrence of the external cause

== ENCOUNTER 2018-10-29 19:00 | Inpatient (IN) | payer OTHER ==
[~2018-10-29] VITALS: Ht 167.6 cm; Wt 60.0 kg
[~2018-10-29 19:00] MED LIST changes: +ALEV220C2 PO; +ANOR1AER INH; +IBUPOTC PO; +VITA1CAP2 PO
[2018-10-29 20:14] LABS: BASO # 0.1 10^3/uL (0.0-0.2); BASO % 0.8 % (0.0-1.0); EOS # 0.7 10^3/uL (0.0-0.50); EOS % 5.1 % (0.0-3.0); HEMATOCRIT 43.8 % (42.0-52.0); HEMOGLOBIN 15.2 g/dl (13.5-17.5); LYMPH # 3.7 10^3/uL (1.5-4.5); LYMPH % 28.4 % (24.0-44.0); MEAN CORPUSCULAR HGB CONC 34.7 g/dl (32.0-36.5); MEAN CORPUSCULAR VOLUME 95.2 fl (80.0-96.0); MONO # 0.7 10^3/uL (0.0-0.8); MONO % 5.5 % (0.0-5.0); NEUTROPHILS # 7.8 10^3/uL (1.8-7.7); NEUTROPHILS % 59.4 % (36.0-66.0); PLATELET COUNT, AUTOMATED 347 10^3/uL (150-450); WHITE BLOOD COUNT 13.1 10^3/uL (4.0-10.0)
[2018-10-29 20:33] LABS: INR 0.86; PROTHROMBIN TIME 11.8 SECONDS (12.1-14.4)
--- NOTE | 2018-10-29 20:33 | REP ---
Clinical: Chest wall drainage. Technique: Axial noncontrast images from the thoracic inlet to the upper abdomen with coronal and sagittal re-formations. Comparison: 10/14/2018. Findings: With comparison to prior examination, there is only minimal area of opacity/atelectasis along the anteromedial right middle lobe and small amount of subcutaneous emphysema in the sub xyphoid anterior midline soft tissue. New findings include a small right pleural effusion with associated right basilar atelectasis. A small area of fibro atelectatic changes in the posterior aspect of the right upper lobe (images 34 - 39) has improved. Underlying chronic advanced emphysematous changes are again noted. No significant adenopathy. The mediastinum demonstrates mild atherosclerotic changes to the thoracic aorta and coronary arteries without aortic aneurysm, cardiomegaly or pericardial effusion. The osseous structures appear intact. Limited upper abdomen demonstrates normal bilateral adrenal glands. Impression: 1. Small amount of residual opacity/atelectasis along the anteromedial right middle lobe and small amount of subcutaneous emphysema in the sub xyphoid soft tissue both of which appear improved. 2. Small area of fibro atelectatic changes possibly scarring in the posterior aspect of the right upper lobe improved. 3. New small right pleural effusion and right basilar atelectasis. 4. Underlying chronic advanced emphysematous disease. Electronically Signed by Chi Blevins MD 10/29/2018 08:24 P
[2018-10-29 20:34] LABS: PARTIAL THROMBOPLASTIN TIME 26.5 SECONDS (25.4-37.6)
[2018-10-29 20:40] LABS: ALBUMIN 3.8 GM/DL (3.2-5.2); ALT/SGPT 28 U/L (12-78); BILIRUBIN,DIRECT < 0.1 MG/DL (0.0-0.2); BILIRUBIN,TOTAL 0.2 MG/DL (0.2-1.0); BLOOD UREA NITROGEN 8 MG/DL (7-18); C REACTIVE PROTEIN QUANTITATIV < 0.30 MG/DL (0.00-0.30); CALCIUM LEVEL 8.7 MG/DL (8.5-10.1); CARBON DIOXIDE LEVEL 25 MEQ/L (21-32); CHLORIDE LEVEL 106 MEQ/L (98-107); CK-MB VALUE MASS < 1.0 NG/ML (<3.6); CPK CREATINE PHOSPHOKINASE 54 U/L (39-308); CREATININE FOR GFR 0.89 MG/DL (0.70-1.30); GLOMERULAR FILTRATION RATE > 60.0 (>60); GLUCOSE, FASTING 78 MG/DL (70-100); MB/CK RELATIVE INDEX 1.85 (< OR =4); POTASSIUM SERUM 4.1 MEQ/L (3.5-5.1); SODIUM LEVEL 140 MEQ/L (136-145); TOTAL PROTEIN 6.6 GM/DL (6.4-8.2); TROPONIN I < 0.02 NG/ML (< 0.10)
[2018-10-29 20:52] LABS: ERYTHROCYTE SEDIMENTATION RATE 4 mm/hr (0-15)
[2018-10-29] MEDS ORDERED: KCL 20MEQ IN D5/NS 1000ML 1,000 ML IV SCH (22:34)
[2018-10-29] MEDS ORDERED: NORCO, ANEXSIA 5/325MG TABLET (HYDROcodone/ACETAMINOPHEN) PO PRN (22:45)
[2018-10-29] MEDS ORDERED: ONDANSETRON 4MG/2ML VIAL (J2405) IV PRN (22:45)
[2018-10-29] MEDS ORDERED: ACETAMINOPHEN TAB 650MG DOSE (2X325MG) PO PRN (22:45)
[2018-10-29] MEDS ORDERED: PERCOCET 5MG/325MG TAB PO PRN (22:45)
[2018-10-29] MEDS ORDERED: BISACODYL 10 MG SUPP PR PRN (22:45)
[2018-10-29] MEDS: DOCUSATE SODIUM 100 MG CAP PO SCH (23:10)
[2018-10-29 23:20] VITALS: BP 126/85
[2018-10-30 04:00] VITALS: BP 119/79
[2018-10-30 05:50] LABS: BASO # 0.1 10^3/uL (0.0-0.2); BASO % 0.7 % (0.0-1.0); EOS # 0.5 10^3/uL (0.0-0.50); EOS % 5.1 % (0.0-3.0); HEMATOCRIT 41.6 % (42.0-52.0); HEMOGLOBIN 14.3 g/dl (13.5-17.5); LYMPH # 2.2 10^3/uL (1.5-4.5); LYMPH % 22.2 % (24.0-44.0); MEAN CORPUSCULAR HEMOGLOBIN 32.2 pg (27.0-33.0); MEAN CORPUSCULAR HGB CONC 34.4 g/dl (32.0-36.5); MEAN CORPUSCULAR VOLUME 93.7 fl (80.0-96.0); MONO # 0.8 10^3/uL (0.0-0.8); MONO % 8.2 % (0.0-5.0); NEUTROPHILS # 6.4 10^3/uL (1.8-7.7); NEUTROPHILS % 63.3 % (36.0-66.0); PLATELET COUNT, AUTOMATED 312 10^3/uL (150-450); RED BLOOD COUNT 4.44 10^6/uL (4.30-6.10); WHITE BLOOD COUNT 10.1 10^3/uL (4.0-10.0)
[2018-10-30 06:14] LABS: BLOOD UREA NITROGEN 8 MG/DL (7-18); CALCIUM LEVEL 8.3 MG/DL (8.5-10.1); CARBON DIOXIDE LEVEL 27 MEQ/L (21-32); CHLORIDE LEVEL 108 MEQ/L (98-107); CREATININE FOR GFR 0.92 MG/DL (0.70-1.30); GLOMERULAR FILTRATION RATE > 60.0 (>60); GLUCOSE, FASTING 99 MG/DL (70-100); POTASSIUM SERUM 4.3 MEQ/L (3.5-5.1); SODIUM LEVEL 140 MEQ/L (136-145)
[2018-10-30] MEDS: DOCUSATE SODIUM 100 MG CAP PO SCH (07:51)
[2018-10-30 08:00] VITALS: BP 104/69
--- NOTE | 2018-10-30 08:48 | REP ---
Clinical: Pericarditis. Comparison: 10/17/2018. Findings: Mediastinum and cardiac silhouette are normal. Surgical clips overlying the right lower lung zone again noted and unchanged. Suspected chronic pleuroparenchymal changes along the diaphragmatic surfaces with blunting of the costophrenic angles is suggested. Lateral radiograph demonstrates no significant basilar opacity or definite effusion. No pneumothorax. Skeletal structures intact. Impression: Suspected chronic pleuroparenchymal changes along the bilateral lung bases. Electronically Signed by Chi Blevins MD 10/30/2018 08:39 A
[2018-10-30] MEDS ORDERED: MOM 30ML SUSPENSION UDC PO SCH (09:00)
[2018-10-30] MEDS ORDERED: PANTOPRAZOLE 40MG TAB (PROTONIX) PO SCH (09:00)
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
[2018-10-30] MEDS ORDERED: HEPARIN SOD (PORCINE) 5000 UNITS/ML VIAL SC SCH (10:00)
--- NOTE | 2018-10-30 20:03 | ECGEPIP ---
Stationary ECG Study [facility] - ED Test Date: 2018-10-29 Pat Name: KEITH OAKES Department: Room: [place] [address] Gender: M Hr Analyst: MARIANA : 1970 Requested By: VICKIE Cottrell Order Number: [id number] Reading MD: Luda Bowman Measurements Intervals [place] Rate: 78 P: 76 SD: 152 QRS: 75 QRSD: 107 T: 66 QT: 352 QTc: 402 Interpretive Statements SINUS RHYTHM POSSIBLE LEFT ATRIAL ENLARGEMENT INDETERMINATE AXIS INCOMPLETE RIGHT BUNDLE BRANCH BLOCK POSSIBLE INFERIOR MYOCARDIAL INFARCTION, PROBABLY OLD MODERATE T-WAVE ABNORMALITY, CONSIDER ANTERIOR ISCHEMIA, NEW 10/14/18 Electronically Signed On 10-30-2018 20:03:11 EST by Luda Bowman
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
== END 2018-10-30 11:07 | disposition home or self-care (01) | DRG 921 ==
LOC: M ED 19:00 → M ED INP 22:34 → M PCU 23:20
PROVIDERS: ADMIT Thoracic Surgery (Cardiothoracic Vascular Surgery); ATTEND Thoracic Surgery (Cardiothoracic Vascular Surgery)
DX: T81.31XA Disruption of external operation (surgical) wound, not elsewhere classified, initial encounter (principal); Z79.82 Long term (current) use of aspirin; Z79.899 Other long term (current) drug therapy; Y83.8 Other surgical procedures as the cause of abnormal reaction of the patient, or of later complication, without mention of misadventure at the time of the procedure

== ENCOUNTER 2018-10-31 13:36 | Inpatient (IN) | payer OTHER ==
[~2018-10-31] VITALS: Ht 167.6 cm; Wt 73.6 kg
[2018-10-31] MEDS: MOM 30ML SUSPENSION UDC PO SCH (09:00)
[2018-10-31] MEDS: DOCUSATE SODIUM 100 MG CAP PO SCH ×2 (09:00→20:30)
[2018-10-31] MEDS ORDERED: ONDANSETRON 4MG/2ML VIAL (J2405) IV PRN (14:00)
[2018-10-31] MEDS ORDERED: ACETAMINOPHEN TAB 650MG DOSE (2X325MG) PO PRN (14:00)
[2018-10-31] MEDS ORDERED: BISACODYL 10 MG SUPP PR PRN (14:00)
[2018-10-31] MEDS ORDERED: PERCOCET 5MG/325MG TAB PO PRN ×2 (14:00)
[2018-10-31] MEDS ORDERED: KCL 20MEQ IN D5/NS 1000ML 1,000 ML IV SCH (14:00)
[2018-10-31] MEDS ORDERED: NORCO, ANEXSIA 5/325MG TABLET (HYDROcodone/ACETAMINOPHEN) PO PRN (14:00)
[2018-10-31] MEDS: ceFAZolin SOD 1 GM in D5W MINI-BAG PLUS 50 ML IV SCH ×2 (15:15→23:56)
[2018-10-31 16:00] VITALS: BP 110/77
[2018-10-31] MEDS: KETOROLAC 30 MG/ML VIAL (J1885) IV SCH ×2 (17:04→20:00)
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
[2018-10-31 20:00] VITALS: BP 110/83
[2018-10-31] MEDS: HEPARIN SOD (PORCINE) 5000 UNITS/ML VIAL SC SCH (20:31)
[2018-10-31 23:59] VITALS: BP 110/66
[2018-11-01] MEDS: KETOROLAC 30 MG/ML VIAL (J1885) IV SCH ×4 (02:00→20:00)
[2018-11-01 04:45] VITALS: BP 120/73
[2018-11-01 04:55] LABS: BASO # 0.1 10^3/uL (0.0-0.2); BASO % 0.6 % (0.0-1.0); EOS # 0.8 10^3/uL (0.0-0.50); HEMATOCRIT 40.4 % (42.0-52.0); HEMOGLOBIN 13.8 g/dl (13.5-17.5); LYMPH # 2.9 10^3/uL (1.5-4.5); LYMPH % 26.6 % (24.0-44.0); MEAN CORPUSCULAR HEMOGLOBIN 32.6 pg (27.0-33.0); MEAN CORPUSCULAR HGB CONC 34.2 g/dl (32.0-36.5); MEAN CORPUSCULAR VOLUME 95.5 fl (80.0-96.0); MONO # 0.8 10^3/uL (0.0-0.8); NEUTROPHILS # 6.3 10^3/uL (1.8-7.7); NEUTROPHILS % 58.1 % (36.0-66.0); PLATELET COUNT, AUTOMATED 294 10^3/uL (150-450); RED BLOOD COUNT 4.23 10^6/uL (4.30-6.10); WHITE BLOOD COUNT 10.8 10^3/uL (4.0-10.0)
[2018-11-01] MEDS: ceFAZolin SOD 1 GM in D5W MINI-BAG PLUS 50 ML IV SCH ×3 (06:10→22:35)
[2018-11-01 08:00] VITALS: BP_SYST 113; BP_SYST 153; BP_DIAS 72
--- NOTE | 2018-11-01 08:20 | REP ---
PA and lateral chest: Comparison is 10/30/2018. There is a right pleural effusion that has increased in size. The surgical staple lines superimposed over the medial lower right hemithorax on the comparison study have been removed. There is no pneumothorax. The right and left lung rosales otherwise clear. Cardiac size normal. The nelson, mediastinum, skeletal structures are. There is no pneumothorax or pneumomediastinum. Impression: Right pleural effusion. Otherwise, negative PA and lateral chest. Electronically Signed by Wenceslao Kimble MD 11/01/2018 08:11 A
[2018-11-01] MEDS: MOM 30ML SUSPENSION UDC PO SCH (09:00)
[2018-11-01] MEDS: DOCUSATE SODIUM 100 MG CAP PO SCH ×2 (09:00→20:27)
[2018-11-01] MEDS: HEPARIN SOD (PORCINE) 5000 UNITS/ML VIAL SC SCH ×2 (09:01→20:27)
[2018-11-01 12:00] VITALS: BP 116/71
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
[2018-11-01] MEDS: VANCOMYCIN HCL 1,000 MG, VIAL MATE ADAPTER 1 EACH in D5W 250 ML IV SCH (14:32)
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
[2018-11-01 16:00] VITALS: BP 130/80
[2018-11-01] MEDS ORDERED: VANCOMYCIN HCL 500 MG in D5W MINI-BAG PLUS 100 ML IV ONE (16:00)
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
[2018-11-01 20:00] VITALS: BP 110/69
[2018-11-02] VITALS (10 sets, daily range): BP systolic 103–126; BP diastolic 60–78
[2018-11-02] MEDS: KETOROLAC 30 MG/ML VIAL (J1885) IV SCH ×4 (02:00→20:14)
[2018-11-02] MEDS: VANCOMYCIN HCL 1,000 MG, VIAL MATE ADAPTER 1 EACH in D5W 250 ML IV SCH ×2 (02:37→17:40)
[2018-11-02 05:12] LABS: BASO # 0.1 10^3/uL (0.0-0.2); BASO % 0.5 % (0.0-1.0); EOS # 0.7 10^3/uL (0.0-0.50); EOS % 6.4 % (0.0-3.0); HEMATOCRIT 39.3 % (42.0-52.0); HEMOGLOBIN 13.5 g/dl (13.5-17.5); LYMPH # 2.4 10^3/uL (1.5-4.5); MEAN CORPUSCULAR HEMOGLOBIN 32.6 pg (27.0-33.0); MEAN CORPUSCULAR HGB CONC 34.4 g/dl (32.0-36.5); MEAN CORPUSCULAR VOLUME 94.9 fl (80.0-96.0); MONO # 1.1 10^3/uL (0.0-0.8); MONO % 9.8 % (0.0-5.0); NEUTROPHILS % 61.8 % (36.0-66.0); PLATELET COUNT, AUTOMATED 284 10^3/uL (150-450); RED BLOOD COUNT 4.14 10^6/uL (4.30-6.10); WHITE BLOOD COUNT 11.3 10^3/uL (4.0-10.0)
[2018-11-02] MEDS: ceFAZolin SOD 1 GM in D5W MINI-BAG PLUS 50 ML IV SCH (06:13)
[2018-11-02] MEDS: MOM 30ML SUSPENSION UDC PO SCH (09:00)
[2018-11-02] MEDS: HEPARIN SOD (PORCINE) 5000 UNITS/ML VIAL SC SCH ×2 (09:00→20:14)
[2018-11-02] MEDS: DOCUSATE SODIUM 100 MG CAP PO SCH ×2 (09:00→20:14)
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
[2018-11-02] MEDS ORDERED: BACITRACIN PWD 50,000 UNITS VIAL As Ordered ONE (13:12)
[2018-11-02] MEDS ORDERED: UNASYN 1.5 GM VIAL As Ordered ONE (13:17)
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
[2018-11-02] MEDS ORDERED: ONDANSETRON 4MG/2ML VIAL (J2405) IV PRN (15:15)
[2018-11-02] MEDS ORDERED: fentaNYL 100 MCG/2 ML INJECTION (J3010) IV PRN (15:15)
[2018-11-02] MEDS ORDERED: METOCLOPRAMIDE INJ 10MG/2ML VIAL (J2765) IV PRN (15:15)
[2018-11-02] MEDS ORDERED: LR 1,000 ML IV SCH (15:15)
[2018-11-02] MEDS ORDERED: HYDROMORPHONE HCL 0.5 MG/ 0.5 ML SYRINGE (J1170 PER 1) IV PRN (15:15)
[2018-11-02] MEDS ORDERED: PERCOCET 5MG/325MG TAB PO PRN (15:15)
[2018-11-02] MEDS ORDERED: AMPICILLIN SOD/SULBACTAM SOD 3 GM in D5W MINI-BAG PLUS 100 ML IV SCH (16:00)
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
[2018-11-02] MEDS: AMPICILLIN SOD/SULBACTAM SOD 3 GM in D5W MINI-BAG PLUS 100 ML IV SCH (20:13)
[2018-11-03] VITALS (7 sets, daily range): BP systolic 100–122; BP diastolic 64–87
[2018-11-03] MEDS: AMPICILLIN SOD/SULBACTAM SOD 3 GM in D5W MINI-BAG PLUS 100 ML IV SCH ×4 (01:04→18:30)
[2018-11-03] MEDS: KETOROLAC 30 MG/ML VIAL (J1885) IV SCH ×4 (01:04→20:35)
[2018-11-03] MEDS: VANCOMYCIN HCL 1,000 MG, VIAL MATE ADAPTER 1 EACH in D5W 250 ML IV SCH ×2 (02:06→14:31)
[2018-11-03 06:10] LABS: BASO # 0.1 10^3/uL (0.0-0.2); BASO % 0.4 % (0.0-1.0); EOS # 0.3 10^3/uL (0.0-0.50); EOS % 1.9 % (0.0-3.0); HEMATOCRIT 37.2 % (42.0-52.0); HEMOGLOBIN 12.9 g/dl (13.5-17.5); LYMPH # 2.4 10^3/uL (1.5-4.5); LYMPH % 17.9 % (24.0-44.0); MEAN CORPUSCULAR HEMOGLOBIN 32.4 pg (27.0-33.0); MEAN CORPUSCULAR HGB CONC 34.7 g/dl (32.0-36.5); MEAN CORPUSCULAR VOLUME 93.5 fl (80.0-96.0); MONO % 7.7 % (0.0-5.0); NEUTROPHILS # 9.6 10^3/uL (1.8-7.7); NEUTROPHILS % 71.5 % (36.0-66.0); PLATELET COUNT, AUTOMATED 273 10^3/uL (150-450); RED BLOOD COUNT 3.98 10^6/uL (4.30-6.10); WHITE BLOOD COUNT 13.4 10^3/uL (4.0-10.0)
[2018-11-03 06:28] LABS: BLOOD UREA NITROGEN 9 MG/DL (7-18); CREATININE FOR GFR 0.72 MG/DL (0.70-1.30); GLUCOSE, FASTING 98 MG/DL (70-100)
[2018-11-03 06:29] LABS: CALCIUM LEVEL 8.9 MG/DL (8.5-10.1); CARBON DIOXIDE LEVEL 25 MEQ/L (21-32); CHLORIDE LEVEL 104 MEQ/L (98-107); GLOMERULAR FILTRATION RATE > 60.0 (>60); POTASSIUM SERUM 4.1 MEQ/L (3.5-5.1); SODIUM LEVEL 136 MEQ/L (136-145)
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
[2018-11-03] MEDS: MOM 30ML SUSPENSION UDC PO SCH ×2 (08:27→08:37)
[2018-11-03] MEDS: DOCUSATE SODIUM 100 MG CAP PO SCH ×2 (08:27→20:35)
[2018-11-03] MEDS: HEPARIN SOD (PORCINE) 5000 UNITS/ML VIAL SC SCH ×2 (08:28→20:34)
[2018-11-03] MEDS ORDERED: VANCOMYCIN HCL 500 MG in D5W MINI-BAG PLUS 100 ML IV ONE (15:00)
[2018-11-04] MEDS: AMPICILLIN SOD/SULBACTAM SOD 3 GM in D5W MINI-BAG PLUS 100 ML IV SCH ×3 (00:33→12:22)
[2018-11-04] MEDS: VANCOMYCIN HCL 1,000 MG, VIAL MATE ADAPTER 1 EACH in D5W 250 ML IV SCH ×2 (01:30→14:00)
[2018-11-04] MEDS: KETOROLAC 30 MG/ML VIAL (J1885) IV SCH ×4 (01:30→20:53)
[2018-11-04 04:00] VITALS: BP 129/83
[2018-11-04 05:48] LABS: BASO # 0.1 10^3/uL (0.0-0.2); BASO % 0.7 % (0.0-1.0); EOS # 0.7 10^3/uL (0.0-0.50); EOS % 6.3 % (0.0-3.0); HEMATOCRIT 39.2 % (42.0-52.0); HEMOGLOBIN 13.3 g/dl (13.5-17.5); LYMPH # 2.9 10^3/uL (1.5-4.5); LYMPH % 25.5 % (24.0-44.0); MEAN CORPUSCULAR HEMOGLOBIN 32.8 pg (27.0-33.0); MEAN CORPUSCULAR HGB CONC 33.9 g/dl (32.0-36.5); MEAN CORPUSCULAR VOLUME 96.8 fl (80.0-96.0); MONO # 0.9 10^3/uL (0.0-0.8); MONO % 7.7 % (0.0-5.0); NEUTROPHILS # 6.6 10^3/uL (1.8-7.7); NEUTROPHILS % 59.2 % (36.0-66.0); PLATELET COUNT, AUTOMATED 277 10^3/uL (150-450); RED BLOOD COUNT 4.05 10^6/uL (4.30-6.10); WHITE BLOOD COUNT 11.2 10^3/uL (4.0-10.0)
[2018-11-04 06:16] LABS: BLOOD UREA NITROGEN 14 MG/DL (7-18); CARBON DIOXIDE LEVEL 26 MEQ/L (21-32); CHLORIDE LEVEL 108 MEQ/L (98-107); CREATININE FOR GFR 1.01 MG/DL (0.70-1.30); GLOMERULAR FILTRATION RATE > 60.0 (>60); GLUCOSE, FASTING 88 MG/DL (70-100); POTASSIUM SERUM 4.2 MEQ/L (3.5-5.1); SODIUM LEVEL 139 MEQ/L (136-145)
[2018-11-04 07:58] VITALS: BP 105/77
--- NOTE | 2018-11-04 08:06 | IPNPDOC ---
Subjective General Date/Time Seen The patient was seen on 11/04/18 at 08:02. Subject Chief Complaint/History The patient is a 48-year-old male admitted with a reason for visit of Wound Dehiscence. No events overnight. No complains. Current Medications Current Medications Current Medications Acetaminophen (Tylenol Tab) 650 mg Q6HP PRN PO T > 101.5 or [place]; Start 10/31/18 at 14:00 Acetaminophen/ Hydrocodone Bitart ([place], [place] 5/325) 1 tab Q3HP PRN PO MILD PAIN (PS 1-4); Start 10/31/18 at 14:00 Ampicillin Sodium/ Sulbactam Sodium 3 gm/Dextrose 100 ml @ 200 mls/hr Q6H IV ; Start 11/02/18 at 16:00; Stop 11/02/18 at 17:31; Status DC Ampicillin Sodium/ Sulbactam Sodium 3 gm/Dextrose 100 ml @ 200 mls/hr Q6H IV Last administered on 11/04/18at 06:37; Start 11/02/18 at 19:00 Bisacodyl (Dulcolax Suppository) 10 mg Q4HP PRN DC CONSTIPATION; Start 10/31/18 at 14:00 Cefazolin Sodium 1 gm/Dextrose 50 ml @ 100 mls/hr Q8H IV Last administered on 11/02/18at 06:13; Start 10/31/18 at 15:00; Stop 11/02/18 at 07:29; Status DC Docusate Sodium (Colace) 100 mg BID PO Last administered on 11/03/18at 20:35; Start 10/31/18 at 09:00 Fentanyl Citrate (Sublimaze) 25 mcg Q5MP PRN IV MODERATE PAIN (PS 4-7); Start 11/02/18 at 15:15; Stop 11/02/18 at 16:15; Status DC Heparin Sodium (Porcine) (Heparin) 5,000 units Q12H SC Last administered on 11/03/18at 20:34; Start 10/31/18 at 21:00 Home Med (Med Rec Complete!) ASDIRECTED XX ; Start 10/31/18 at 16:00; Stop 10/31/18 at 16:00; Status DC Hydromorphone HCl (Dilaudid) 0.2 mg Q5MP PRN IV MODERATE/SEVERE PAIN (PS 5-10); Start 11/02/18 at 15:15; Stop 11/02/18 at 16:15; Status DC Ketorolac Tromethamine (ToRADol) 30 mg Q6H IV Last administered on 11/04/18at 01:30; Start 10/31/18 at 14:00; Stop 11/05/18 at 13:59 Lactated Ringer's 1,000 ml @ 100 mls/hr Q10H IV ; Start 11/02/18 at 15:15; Stop 11/02/18 at 16:15; Status DC Magnesium Hydroxide (Milk Of Magnesia) 30 ml DAILY PO ; Start 10/31/18 at 09:00 Metoclopramide HCl (REGLAN INJection) 10 mg Q6HP PRN IV NAUSEA OR VOMITING; Start 11/02/18 at 15:15; Stop 11/02/18 at 16:15; Status DC Ondansetron HCl (ZOFRAN INJection) 4 mg Q4HP PRN IV NAUSEA; Start 10/31/18 at 14:00 Ondansetron HCl (ZOFRAN INJection) 4 mg Q4HP PRN IV NAUSEA OR VOMITING; Start 11/02/18 at 15:15; Stop 11/02/18 at 16:15; Status DC Oxycodone/ Acetaminophen (Percocet 5mg/ 325mg Tablet) 1 tab ASDIRECTED PRN PO MILD/MODERATE PAIN (PS 1-7); Start 11/02/18 at 15:15; Stop 11/02/18 at 16:15; Status DC Oxycodone/ Acetaminophen (Percocet 5mg/ 325mg Tablet) 1 tab Q4HP PRN PO MODERATE PAIN (PS 5-7); Start 10/31/18 at 14:00 Oxycodone/ Acetaminophen (Percocet 5mg/ 325mg Tablet) 2 tab Q4HP PRN PO SEVERE PAIN (PS 8-10); Start 10/31/18 at 14:00 Potassium Chloride/Dextrose/ Sod Cl 1,000 ml @ 75 mls/hr [id number] IV Last administered on 10/31/18at 17:04; Start 10/31/18 at 14:00; Stop 11/01/18 at 01:28; Status DC Vancomycin HCl 1000 mg/IV Miscellaneous Supplies 1 each/ Dextrose 270 ml @ 270 mls/hr Q12H IV Last administered on 11/04/18at 01:30; Start 11/01/18 at 14:00 Allergies Coded Allergies: No Known Allergies (Unverified , 10/15/17) Objective Physical Examination Examination GENERAL APPEARANCE:Patient seen, laying in bed, awake, alert, and oriented. Comfortable, in no acute distress. Ambulated earlier. SKIN: Warm and moist. Lower sternal wound with pink edges, 3 stay sutures inferior wound intact. No purulence. Serous drainage moderate. No odor. HEENT: Normocephalic, atraumatic. [place] palpebral conjunctiva, anicteric sclerae. Lips and mucosa appear moist. NECK: Supple, no thyromegaly. No obvious jugular venous distention. LUNGS: Clear to auscultation bilaterally. No wheezing appreciated. HEART: No chest wall abnormalities. Regular rate and rhythm with no murmurs appreciated. Vital Signs Vital Signs Date Time Temp Pulse Resp B/P (MAP) Pulse Ox O2 Delivery O2 Flow Rate FiO2 11/04/18 07:58 98.5 64 18 105/77 (86) 96 11/02/18 14:50 2 10/31/18 15:55 Room Air I&Os I&O- Last 24 Hours up to 6 AM 11/04/18 06:00 Intake Total 2250 ml Output Total 1525 ml Balance 725 ml Laboratory Data Labs 24H Laboratory Tests 2 11/03/18 12:44: Vancomycin Level Trough 12.0 11/04/18 05:24: Immature Granulocyte % (Auto) 0.6, White Blood Count 11.2H, Red Blood Count 4.05L, Hemoglobin 13.3L, Hematocrit 39.2L, Mean Corpuscular Volume 96.8H, Mean Corpuscular Hemoglobin 32.8, Mean Corpuscular Hemoglobin Concent 33.9, Red Cell Distribution Width 13.7, Platelet Count 277, Neutrophils (%) (Auto) 59.2, Lymphocytes (%) (Auto) 25.5, Monocytes (%) (Auto) 7.7H, Eosinophils (%) (Auto) 6.3H, Basophils (%) (Auto) 0.7, Neutrophils # (Auto) 6.6, Lymphocytes # (Auto) 2.9, Monocytes # (Auto) 0.9H, Eosinophils # (Auto) 0.7H, Basophils # (Auto) 0.1, Nucleated Red Blood Cells % (auto) 0.0, Anion Gap 5L, Glomerular Filtration Rate > 60.0, Blood Urea Nitrogen 14#, Creatinine 1.01, Sodium Level 139, Potassium Level 4.2, Chloride Level 108H, Carbon Dioxide Level 26, Calcium Level 8.0L CBC/BMP Laboratory Tests 11/04/18 05:24 Red Blood Count 4.05 L, Mean Corpuscular Volume 96.8 H, Mean Corpuscular Hemoglobin 32.8, Mean Corpuscular Hemoglobin Concent 33.9, Red Cell Distribution Width 13.7, Neutrophils (%) (Auto) 59.2, Lymphocytes (%) (Auto) 25.5, Monocytes (%) (Auto) 7.7 H, Eosinophils (%) (Auto) 6.3 H, Basophils (%) (Auto) 0.7, N eutrophils # (Auto) 6.6, Lymphocytes # (Auto) 2.9, Monocytes # (Auto) 0.9 H, Eosinophils # (Auto) 0.7 H, Basophils # (Auto) 0.1, Calcium Level 8.0 L Microbiology Microbiology 11/02/18 Wound Culture, Received Pending 11/02/18 Anaerobic Culture, Received Pending 11/02/18 Wound Culture, Received Pending 11/02/18 Anaerobic Culture, Received Pending 11/01/18 Gram Stain - Final, Complete 11/01/18 Wound Culture - Final, Complete Staphylococcus Sp Coag Neg Impression Lower sternal wound. Cultured pending, continue with antibiotics Wound dressing changed today under sterile conditions. Endofoam and Hydrofera blue dressing applied. Patient tolerated well. Next wound dressing change Wednesday. Discussed with patient high likelihood secondary closure procedure when infection clears. Patient states understanding. Will follow patient. Plan / VTE VTE Prophylaxis Ordered?: Yes RACHEL SQUIRES DO Nov 04, 2018 08:06
[2018-11-04] MEDS: DOCUSATE SODIUM 100 MG CAP PO SCH ×2 (08:14→20:54)
[2018-11-04] MEDS: MOM 30ML SUSPENSION UDC PO SCH (08:15)
[2018-11-04] MEDS: HEPARIN SOD (PORCINE) 5000 UNITS/ML VIAL SC SCH ×2 (08:15→20:54)
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
[2018-11-04 11:27] VITALS: BP 124/85
[2018-11-04 16:00] VITALS: BP 121/73
--- NOTE | 2018-11-04 18:07 | IPN ---
DATE: 11/04/2018 The patient has been doing well, but did develop a little bit of a temperature spike today. His white count has been coming down after he was debrided. A few days ago his white count went up and now is trending back down. Probably had some bacteremia associated with the debridement and at this point seems relatively stable. He had staphylococcus in his wound as expected and is being appropriately treated for this. He continues to have dressing change as per Dr. Curtis and Dr. Aaron has made recommendations concerning antibiotic treatment concerning this. His dressing is intact. Otherwise not complaining of any shortness of breath. No other GI or symptoms. IMPRESSION AND PLAN The patient is here for ongoing antibiotic treatment and continued wound care by Dr. Curtis. I appreciate Dr. Aaron's input. We will continue him on the dressing changes and will see how he does over the next several days, next week. However, at this point it sounds as though Dr. Curtis and Dr. Zapata may decide to progress to operative intervention in approximately a week and half and proceed with possible flaps closure of the site. Otherwise will continue him on antibiotics and dressing changes until that time.
[2018-11-04 20:00] VITALS: BP 126/78
[2018-11-04 23:59] VITALS: BP 123/70
[2018-11-05] MEDS: KETOROLAC 30 MG/ML VIAL (J1885) IV SCH ×2 (01:53→08:00)
[2018-11-05] MEDS: VANCOMYCIN HCL 1,000 MG, VIAL MATE ADAPTER 1 EACH in D5W 250 ML IV SCH ×2 (01:54→13:38)
[2018-11-05 04:00] VITALS: BP 118/75
[2018-11-05 05:01] LABS: BASO # 0.1 10^3/uL (0.0-0.2); BASO % 0.6 % (0.0-1.0); EOS # 0.9 10^3/uL (0.0-0.50); EOS % 7.6 % (0.0-3.0); HEMOGLOBIN 12.4 g/dl (13.5-17.5); LYMPH # 3.2 10^3/uL (1.5-4.5); LYMPH % 26.3 % (24.0-44.0); MEAN CORPUSCULAR HGB CONC 34.4 g/dl (32.0-36.5); MEAN CORPUSCULAR VOLUME 95.7 fl (80.0-96.0); MONO # 1.1 10^3/uL (0.0-0.8); MONO % 9.3 % (0.0-5.0); NEUTROPHILS # 6.7 10^3/uL (1.8-7.7); NEUTROPHILS % 55.6 % (36.0-66.0); PLATELET COUNT, AUTOMATED 280 10^3/uL (150-450); RED BLOOD COUNT 3.76 10^6/uL (4.30-6.10); WHITE BLOOD COUNT 12.1 10^3/uL (4.0-10.0)
[2018-11-05 05:27] LABS: BLOOD UREA NITROGEN 15 MG/DL (7-18); CALCIUM LEVEL 7.9 MG/DL (8.5-10.1); CARBON DIOXIDE LEVEL 28 MEQ/L (21-32); CHLORIDE LEVEL 109 MEQ/L (98-107); CREATININE FOR GFR 0.87 MG/DL (0.70-1.30); GLOMERULAR FILTRATION RATE > 60.0 (>60); GLUCOSE, FASTING 87 MG/DL (70-100); POTASSIUM SERUM 4.2 MEQ/L (3.5-5.1); SODIUM LEVEL 140 MEQ/L (136-145)
[2018-11-05 08:00] VITALS: BP 134/82
--- NOTE | 2018-11-05 08:21 | REP ---
PA and lateral chest: Comparisons are 11/03/2018 and 11/04/2018. There are bilateral pleural effusions, unchanged. There is no pneumothorax. Lung rosales otherwise clear. Cardiac size is normal. The nelson, mediastinum, skeletal structures are unchanged. No pneumomediastinum or pneumothorax. Impression: Bilateral pleural effusions. No interval change. Electronically Signed by Wenceslao Kimble MD 11/05/2018 08:13 A
[2018-11-05] MEDS: DOCUSATE SODIUM 100 MG CAP PO SCH ×2 (08:49→21:26)
[2018-11-05] MEDS: HEPARIN SOD (PORCINE) 5000 UNITS/ML VIAL SC SCH ×2 (08:49→21:26)
[2018-11-05] MEDS: MOM 30ML SUSPENSION UDC PO SCH (08:50)
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
[2018-11-05 12:00] VITALS: BP 125/82
[2018-11-05 16:00] VITALS: BP 115/73
[2018-11-05 20:00] VITALS: BP 143/84
[2018-11-05 23:59] VITALS: BP 115/67
[2018-11-06] MEDS: VANCOMYCIN HCL 1,000 MG, VIAL MATE ADAPTER 1 EACH in D5W 250 ML IV SCH ×2 (01:49→14:00)
[2018-11-06 04:00] VITALS: BP 129/78
[2018-11-06 06:15] LABS: BLOOD UREA NITROGEN 14 MG/DL (7-18); CALCIUM LEVEL 8.7 MG/DL (8.5-10.1); CARBON DIOXIDE LEVEL 27 MEQ/L (21-32); CHLORIDE LEVEL 107 MEQ/L (98-107); CREATININE FOR GFR 1.14 MG/DL (0.70-1.30); GLOMERULAR FILTRATION RATE > 60.0 (>60); GLUCOSE, FASTING 87 MG/DL (70-100); POTASSIUM SERUM 4.4 MEQ/L (3.5-5.1); SODIUM LEVEL 140 MEQ/L (136-145)
[2018-11-06 08:00] VITALS: BP 120/79
[2018-11-06 08:38] LABS: BASO # 0.1 10^3/uL (0.0-0.2); BASO % 0.9 % (0.0-1.0); EOS % 9.3 % (0.0-3.0); HEMATOCRIT 39.7 % (42.0-52.0); HEMOGLOBIN 13.3 g/dl (13.5-17.5); LYMPH # 2.4 10^3/uL (1.5-4.5); LYMPH % 22.5 % (24.0-44.0); MEAN CORPUSCULAR HEMOGLOBIN 32.8 pg (27.0-33.0); MEAN CORPUSCULAR HGB CONC 33.5 g/dl (32.0-36.5); MONO # 1.1 10^3/uL (0.0-0.8); MONO % 10.6 % (0.0-5.0); NEUTROPHILS # 5.9 10^3/uL (1.8-7.7); NEUTROPHILS % 55.8 % (36.0-66.0); PLATELET COUNT, AUTOMATED 278 10^3/uL (150-450); RED BLOOD COUNT 4.05 10^6/uL (4.30-6.10); WHITE BLOOD COUNT 10.5 10^3/uL (4.0-10.0)
--- NOTE | 2018-11-06 08:45 | REP ---
PA and lateral chest: Comparison is [birth year]/1928. The bilateral pleural effusions are unchanged. There is no pneumothorax or pneumomediastinum. The lung rosales are clear and unchanged. Cardiac size is normal, unchanged. The nelson, mediastinum, skeletal structures are unremarkable and unchanged. Impression: No interval change. Electronically Signed by Wenceslao Kimble MD 11/06/2018 08:36 A
[2018-11-06] MEDS: MOM 30ML SUSPENSION UDC PO SCH (08:54)
[2018-11-06] MEDS: HEPARIN SOD (PORCINE) 5000 UNITS/ML VIAL SC SCH ×2 (08:54→20:08)
[2018-11-06] MEDS: DOCUSATE SODIUM 100 MG CAP PO SCH ×2 (08:54→20:08)
[2018-11-06 12:00] VITALS: BP 121/79
[2018-11-06 16:00] VITALS: BP 132/90
[2018-11-06 20:00] VITALS: BP 116/77
[2018-11-06 23:59] VITALS: BP 117/73
[2018-11-07] MEDS: VANCOMYCIN HCL 1,000 MG, VIAL MATE ADAPTER 1 EACH in D5W 250 ML IV SCH ×2 (02:00→15:00)
[2018-11-07 04:00] VITALS: BP 121/74
[2018-11-07 05:41] LABS: BLOOD UREA NITROGEN 11 MG/DL (7-18); CALCIUM LEVEL 8.7 MG/DL (8.5-10.1); CARBON DIOXIDE LEVEL 27 MEQ/L (21-32); CHLORIDE LEVEL 106 MEQ/L (98-107); CREATININE FOR GFR 0.93 MG/DL (0.70-1.30); GLOMERULAR FILTRATION RATE > 60.0 (>60); GLUCOSE, FASTING 82 MG/DL (70-100); POTASSIUM SERUM 4.4 MEQ/L (3.5-5.1); SODIUM LEVEL 137 MEQ/L (136-145)
[2018-11-07 08:00] VITALS: BP 107/73
[2018-11-07] MEDS: DOCUSATE SODIUM 100 MG CAP PO SCH ×2 (09:00→20:15)
[2018-11-07] MEDS: MOM 30ML SUSPENSION UDC PO SCH (09:00)
[2018-11-07] MEDS: HEPARIN SOD (PORCINE) 5000 UNITS/ML VIAL SC SCH ×2 (10:15→20:15)
[2018-11-07 10:21] LABS: PREALBUMIN 23.6 MG/DL (20.0-40.0)
[2018-11-07 12:00] VITALS: BP 122/78
[2018-11-07] MEDS ORDERED: SLF 3 ML SYR IV PRN (12:15)
[2018-11-07] MEDS: SLF 3 ML SYR IV SCH ×2 (15:01→20:15)
[2018-11-07 16:00] VITALS: BP 117/83
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
[2018-11-07 20:00] VITALS: BP 121/82
[2018-11-08] VITALS: BP 108/69
[2018-11-08] MEDS: VANCOMYCIN HCL 1,000 MG, VIAL MATE ADAPTER 1 EACH in D5W 250 ML IV SCH ×2 (01:11→14:10)
[2018-11-08 04:00] VITALS: BP 104/65
[2018-11-08] MEDS: SLF 3 ML SYR IV SCH ×3 (05:31→21:10)
[2018-11-08 06:44] LABS: BLOOD UREA NITROGEN 14 MG/DL (7-18); CALCIUM LEVEL 8.7 MG/DL (8.5-10.1); CARBON DIOXIDE LEVEL 26 MEQ/L (21-32); CHLORIDE LEVEL 108 MEQ/L (98-107); CREATININE FOR GFR 0.98 MG/DL (0.70-1.30); GLOMERULAR FILTRATION RATE > 60.0 (>60); GLUCOSE, FASTING 87 MG/DL (70-100); POTASSIUM SERUM 4.3 MEQ/L (3.5-5.1); SODIUM LEVEL 140 MEQ/L (136-145)
[2018-11-08 08:00] VITALS: BP 115/62
[2018-11-08] MEDS: DOCUSATE SODIUM 100 MG CAP PO SCH ×2 (08:29→21:10)
[2018-11-08] MEDS: HEPARIN SOD (PORCINE) 5000 UNITS/ML VIAL SC SCH ×2 (08:29→21:10)
[2018-11-08] MEDS: MOM 30ML SUSPENSION UDC PO SCH (08:29)
[2018-11-08 12:00] VITALS: BP 105/57
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
[2018-11-08 16:00] VITALS: BP_SYST 106; BP_SYST 114; BP_DIAS 57; BP_DIAS 64
--- NOTE | 2018-11-08 16:45 | IPN ---
DATE: 11/08/2018 Patient is here for a wound dehiscence, and Dr. Curtis saw him yesterday for his open wound, changed his dressing, and is continuing on antibiotics. He has had a temperature up to 99 but nothing spiking, and his white count was down to 10.5 a couple days ago. Overall, really has not had any significant drainage, and the report is that there is good granulation tissue developing. IMPRESSION AND PLAN: The patient has an open wound that needs continued dressing changes. The question is whether this will be amenable to treatment without operative intervention, and Dr. Curtis is very concerned that it will be unlikely to heal without additional flaps, etc. She had a long talk with the patient with potential treatment for this and will plan on intervention when Dr. Zapata returns next week. Otherwise, will continue with current treatment.
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
[2018-11-08 20:00] VITALS: BP 110/75
[2018-11-09] VITALS (7 sets, daily range): BP systolic 100–132; BP diastolic 60–77
[2018-11-09] MEDS: VANCOMYCIN HCL 1,000 MG, VIAL MATE ADAPTER 1 EACH in D5W 250 ML IV SCH ×2 (02:35→20:30)
[2018-11-09] MEDS: SLF 3 ML SYR IV SCH ×3 (04:57→20:30)
[2018-11-09 06:32] LABS: BLOOD UREA NITROGEN 13 MG/DL (7-18); C REACTIVE PROTEIN QUANTITATIV < 0.30 MG/DL (0.00-0.30); CALCIUM LEVEL 8.8 MG/DL (8.5-10.1); CARBON DIOXIDE LEVEL 24 MEQ/L (21-32); CHLORIDE LEVEL 108 MEQ/L (98-107); CREATININE FOR GFR 0.96 MG/DL (0.70-1.30); GLOMERULAR FILTRATION RATE > 60.0 (>60); GLUCOSE, FASTING 92 MG/DL (70-100); POTASSIUM SERUM 4.1 MEQ/L (3.5-5.1); SODIUM LEVEL 139 MEQ/L (136-145)
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
[2018-11-09] MEDS: MOM 30ML SUSPENSION UDC PO SCH (09:00)
[2018-11-09] MEDS: DOCUSATE SODIUM 100 MG CAP PO SCH ×2 (09:00→20:26)
[2018-11-09] MEDS: HEPARIN SOD (PORCINE) 5000 UNITS/ML VIAL SC SCH ×2 (09:20→20:27)
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
[2018-11-09] MEDS ORDERED: VANCOMYCIN HCL 500 MG in D5W MINI-BAG PLUS 100 ML IV ONE (13:30)
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
[2018-11-10 04:00] VITALS: BP 109/65
[2018-11-10] MEDS: SLF 3 ML SYR IV SCH ×3 (05:22→22:00)
[2018-11-10 06:09] LABS: HEMATOCRIT 42.3 % (42.0-52.0); HEMOGLOBIN 14.5 g/dl (13.5-17.5); MEAN CORPUSCULAR HGB CONC 34.3 g/dl (32.0-36.5); MEAN CORPUSCULAR VOLUME 96.1 fl (80.0-96.0); PLATELET COUNT, AUTOMATED 285 10^3/uL (150-450); WHITE BLOOD COUNT 9.8 10^3/uL (4.0-10.0)
[2018-11-10 08:00] VITALS: BP 110/76
--- NOTE | 2018-11-10 08:28 | REP ---
PA and lateral chest: Comparisons are 11/08/2018 and 11/09/2018. The right pleural effusion has resolved. Lung rosales are clear but appear hyperinflated, unchanged. Cardiac size is normal. The nelson, mediastinum, skeletal structures are unremarkable. Impression: Resolved right pleural effusion. Hyperinflation. Half Electronically Signed by Wenceslao Kimble MD 11/10/2018 08:19 A
[2018-11-10] MEDS: VANCOMYCIN HCL 1,000 MG, VIAL MATE ADAPTER 1 EACH in D5W 250 ML IV SCH ×2 (08:46→20:00)
[2018-11-10] MEDS: HEPARIN SOD (PORCINE) 5000 UNITS/ML VIAL SC SCH ×2 (08:47→21:07)
[2018-11-10] MEDS: DOCUSATE SODIUM 100 MG CAP PO SCH ×2 (08:47→21:00)
[2018-11-10] MEDS: MOM 30ML SUSPENSION UDC PO SCH (08:47)
[2018-11-10 12:00] VITALS: BP 111/78
[2018-11-10 16:00] VITALS: BP 110/72
[2018-11-10 20:00] VITALS: BP 112/70
[2018-11-10 23:36] VITALS: BP 100/66
[2018-11-11 04:00] VITALS: BP 99/60
[2018-11-11 05:46] LABS: BLOOD UREA NITROGEN 13 MG/DL (7-18); CALCIUM LEVEL 8.8 MG/DL (8.5-10.1); CARBON DIOXIDE LEVEL 28 MEQ/L (21-32); CHLORIDE LEVEL 108 MEQ/L (98-107); CREATININE FOR GFR 0.94 MG/DL (0.70-1.30); GLOMERULAR FILTRATION RATE > 60.0 (>60); GLUCOSE, FASTING 91 MG/DL (70-100); SODIUM LEVEL 139 MEQ/L (136-145)
[2018-11-11] MEDS: SLF 3 ML SYR IV SCH ×3 (06:00→22:00)
[2018-11-11] MEDS: VANCOMYCIN HCL 1,000 MG, VIAL MATE ADAPTER 1 EACH in D5W 250 ML IV SCH ×2 (07:55→19:33)
[2018-11-11] MEDS: DOCUSATE SODIUM 100 MG CAP PO SCH ×2 (07:56→19:33)
[2018-11-11] MEDS: HEPARIN SOD (PORCINE) 5000 UNITS/ML VIAL SC SCH ×2 (07:56→19:33)
[2018-11-11] MEDS: MOM 30ML SUSPENSION UDC PO SCH (07:56)
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
[2018-11-11 08:00] VITALS: BP 97/76
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
--- NOTE | 2018-11-11 09:55 | IPN ---
DATE: 11/10/2018 I appreciate infection disease as well as plastic surgery input into care of patient. It appears that the wound has been healing quite nicely by secondary intention with granulation tissue present and the plan for secondary closure of this wound is planned for next week. At this point the patient still is susceptible to vancomycin for the antibiotics and continues on this. Otherwise patient has been afebrile and white count has been normal. He did have a little bit of leg swelling but since starting his TEDs and sequentials he seems to be doing much better with leg swelling. IMPRESSION AND PLAN: This time patient has plans for continued hospitalization for antibiotics for treatment of this chest wound and plans for secondary closure next week. Continue with current treatment at this time.
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
[2018-11-11 11:52] VITALS: BP 113/73
[2018-11-11 16:00] VITALS: BP 107/71
--- NOTE | 2018-11-11 16:26 | IPNPDOC ---
Subjective General Date/Time Seen The patient was seen on 11/11/18 at 16:11. Subject Chief Complaint/History The patient is a 48-year-old male admitted with a reason for visit of Wound Dehiscence. Doing well. Ambulating. No pain. Current Medications Current Medications Current Medications Acetaminophen (Tylenol Tab) 650 mg Q6HP PRN PO T > 101.5 or CLIFTON; Start 10/31/18 at 14:00 Acetaminophen/ Hydrocodone Bitart ([place], Anexsia 5/325) 1 tab Q3HP PRN PO MILD PAIN (PS 1-4); Start 10/31/18 at 14:00 Ampicillin Sodium/ Sulbactam Sodium 3 gm/Dextrose 100 ml @ 200 mls/hr Q6H IV ; Start 11/02/18 at 16:00; Stop 11/02/18 at 17:31; Status DC Ampicillin Sodium/ Sulbactam Sodium 3 gm/Dextrose 100 ml @ 200 mls/hr Q6H IV Last administered on 11/04/18at 12:22; Start 11/02/18 at 19:00; Stop 11/04/18 at 14:25; Status DC Bisacodyl (Dulcolax Suppository) 10 mg Q4HP PRN [place] CONSTIPATION; Start 10/31/18 at 14:00 Cefazolin Sodium 1 gm/Dextrose 50 ml @ 100 mls/hr Q8H IV Last administered on 11/02/18at 06:13; Start 10/31/18 at 15:00; Stop 11/02/18 at 07:29; Status DC Docusate Sodium (Colace) 100 mg BID PO Last administered on 11/08/18at 21:10; Start 10/31/18 at 09:00 Fentanyl Citrate (Sublimaze) 25 mcg Q5MP PRN IV MODERATE PAIN (PS 4-7); Start 11/02/18 at 15:15; Stop 11/02/18 at 16:15; Status DC Heparin Sodium (Porcine) (Heparin) 5,000 units Q12H SC Last administered on at 21:07; Start 10/31/18 at 21:00 Home Med (Med Rec Complete!) ASDIRECTED XX ; Start 10/31/18 at 16:00; Stop 10/31/18 at 16:00; Status DC Hydromorphone HCl (Dilaudid) 0.2 mg Q5MP PRN IV MODERATE/SEVERE PAIN (PS 5-10); Start 11/02/18 at 15:15; Stop 11/02/18 at 16:15; Status DC Ketorolac Tromethamine (ToRADol) 30 mg Q6H IV Last administered on 11/05/18at 08:00; Start 10/31/18 at 14:00; Stop 11/05/18 at 13:59; Status DC Lactated Ringer's 1,000 ml @ 100 mls/hr Q10H IV ; Start 11/02/18 at 15:15; Stop 11/02/18 at 16:15; Status DC Magnesium Hydroxide (Milk Of Magnesia) 30 ml DAILY PO ; Start 10/31/18 at 09:00 Metoclopramide HCl (REGLAN INJection) 10 mg Q6HP PRN IV NAUSEA OR VOMITING; Start 11/02/18 at 15:15; Stop 11/02/18 at 16:15; Status DC Miscellaneous (Unresolved Clarification Entry) SEE LABEL COMMENTS DAILY XX ; Start 11/06/18 at 09:00; Stop 11/06/18 at 14:57; Status DC Ondansetron HCl (ZOFRAN INJection) 4 mg Q4HP PRN IV NAUSEA; Start 10/31/18 at 14:00 Ondansetron HCl (ZOFRAN INJection) 4 mg Q4HP PRN IV NAUSEA OR VOMITING; Start 11/02/18 at 15:15; Stop 11/02/18 at 16:15; Status DC Oxycodone/ Acetaminophen (Percocet 5mg/ 325mg Tablet) 1 tab ASDIRECTED PRN PO MILD/MODERATE PAIN (PS 1-7); Start 11/02/18 at 15:15; Stop 11/02/18 at 16:15; Status DC Oxycodone/ Acetaminophen (Percocet 5mg/ 325mg Tablet) 1 tab Q4HP PRN PO MODERATE PAIN (PS 5-7); Start 10/31/18 at 14:00 Oxycodone/ Acetaminophen (Percocet 5mg/ 325mg Tablet) 2 tab Q4HP PRN PO SEVERE PAIN (PS 8-10); Start 10/31/18 at 14:00 Potassium Chloride/Dextrose/ Sod Cl 1,000 ml @ 75 mls/hr [id number] IV Last administered on 10/31/18at 17:04; Start 10/31/18 at 14:00; Stop 11/01/18 at 01:28; Status DC Sodium Chloride (Saline Lock Flush) 2 ml ASDIRECTED PRN IV SEE LABEL COMMENTS; Start 11/07/18 at 12:15 Sodium Chloride (Saline Lock Flush) 2 ml SLF IV Last administered on 11/11/18at 11:29; Start 11/07/18 at 14:00 Vancomycin HCl 1000 mg/IV Miscellaneous Supplies 1 each/ Dextrose 270 ml @ 270 mls/hr Q12H IV Last administered on 11/11/18at 07:55; Start 11/09/18 at 20:00 Vancomycin HCl 1000 mg/IV Miscellaneous Supplies 1 each/ Dextrose 270 ml @ 270 mls/hr Q12H IV Last administered on 11/09/18at 02:35; Start 11/01/18 at 14:00; Stop 11/09/18 at 13:23; Status DC Allergies Coded Allergies: No Known Allergies (Unverified , 10/15/17) Objective Physical Examination Examination GENERAL APPEARANCE:Patient seen, laying in bed, awake, alert, and oriented. Comfortable, in no acute distress. SKIN: Warm and moist. Wound lower sternum smaller, 1.5x1.2x2cm, 2 cm undermining. LUNGS: Clear to auscultation bilaterally. No wheezing appreciated. HEART: No chest wall abnormalities. Regular rate and rhythm with no murmurs appreciated. Vital Signs Vital Signs Date Time Temp Pulse Resp B/P (MAP) Pulse Ox O2 Delivery O2 Flow Rate FiO2 11/11/18 16:00 97.7 79 18 107/71 (83) 97 I&Os I&O- Last 24 Hours up to 6 AM 11/11/18 06:00 Intake Total 2170 ml Output Total 5200 ml Balance -3030 ml Laboratory Data Labs 24H Laboratory Tests 2 11/11/18 05:06: Anion Gap 3L, Glomerular Filtration Rate > 60.0, Blood Urea Nitrogen 13, Creatinine 0.94, Sodium Level 139, Potassium Level 4.0, Chloride Level 108H, Carbon Dioxide Level 28, Calcium Level 8.8 CBC/BMP Laboratory Tests 11/11/18 05:06 Calcium Level 8.8 Microbiology Microbiology 11/02/18 Wound Culture - Final, Complete 11/02/18 Anaerobic Culture - Final, Complete 11/02/18 Wound Culture - Final, Complete Propionibacterium Acnes 11/02/18 Anaerobic Culture - Final, Complete 11/01/18 Gram Stain - Final, Complete 11/01/18 Wound Culture - Final, Complete Staphylococcus Sp Coag Neg Impression Lower chest open wound. Improving. Right pleural effusion resolved Wound is getting smaller Continue with antibiotics, dressing changes. Collagen, Hydrofera blue. Plan for surgical closure next week. Plan / VTE VTE Prophylaxis Ordered?: Yes RACHEL SQUIRES DO Nov 11, 2018 16:26
[2018-11-11 20:00] VITALS: BP 90/52
[2018-11-11 23:59] VITALS: BP 129/79
[2018-11-12 04:00] VITALS: BP 119/75
[2018-11-12] MEDS: SLF 3 ML SYR IV SCH ×3 (05:15→21:10)
[2018-11-12 07:49] LABS: BLOOD UREA NITROGEN 12 MG/DL (7-18); CALCIUM LEVEL 9.2 MG/DL (8.5-10.1); CARBON DIOXIDE LEVEL 25 MEQ/L (21-32); CHLORIDE LEVEL 105 MEQ/L (98-107); CREATININE FOR GFR 1.04 MG/DL (0.70-1.30); GLOMERULAR FILTRATION RATE > 60.0 (>60); GLUCOSE, FASTING 87 MG/DL (70-100); POTASSIUM SERUM 4.6 MEQ/L (3.5-5.1); SODIUM LEVEL 136 MEQ/L (136-145)
[2018-11-12 08:00] VITALS: BP 114/85
[2018-11-12] MEDS: MOM 30ML SUSPENSION UDC PO SCH (09:00)
[2018-11-12] MEDS: DOCUSATE SODIUM 100 MG CAP PO SCH ×2 (09:00→20:02)
[2018-11-12] MEDS: HEPARIN SOD (PORCINE) 5000 UNITS/ML VIAL SC SCH ×2 (09:00→20:02)
[2018-11-12] MEDS: VANCOMYCIN HCL 1,000 MG, VIAL MATE ADAPTER 1 EACH in D5W 250 ML IV SCH ×2 (09:04→19:47)
[2018-11-12 12:00] VITALS: BP 122/59
[2018-11-12 16:00] VITALS: BP 131/81
[2018-11-12 20:00] VITALS: BP 127/89
[2018-11-12 23:59] VITALS: BP 98/56
[2018-11-13] VITALS (8 sets, daily range): BP systolic 92–122; BP diastolic 58–90
[2018-11-13] MEDS: SLF 3 ML SYR IV SCH ×3 (05:03→21:28)
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
[2018-11-13] MEDS: MOM 30ML SUSPENSION UDC PO SCH (09:00)
[2018-11-13] MEDS: DOCUSATE SODIUM 100 MG CAP PO SCH ×2 (09:00→21:00)
[2018-11-13] MEDS: HEPARIN SOD (PORCINE) 5000 UNITS/ML VIAL SC SCH ×2 (09:00→21:00)
[2018-11-13] MEDS: VANCOMYCIN HCL 1,000 MG, VIAL MATE ADAPTER 1 EACH in D5W 250 ML IV SCH ×2 (09:23→20:00)
[2018-11-14 04:00] VITALS: BP 96/62
[2018-11-14] MEDS: SLF 3 ML SYR IV SCH ×3 (05:11→19:32)
[2018-11-14] MEDS: HEPARIN SOD (PORCINE) 5000 UNITS/ML VIAL SC SCH ×2 (07:37→20:39)
[2018-11-14] MEDS: DOCUSATE SODIUM 100 MG CAP PO SCH ×2 (07:37→20:39)
[2018-11-14] MEDS: MOM 30ML SUSPENSION UDC PO SCH (07:37)
[2018-11-14 08:00] VITALS: BP 118/75
[2018-11-14] MEDS: VANCOMYCIN HCL 1,000 MG, VIAL MATE ADAPTER 1 EACH in D5W 250 ML IV SCH ×2 (08:28→19:32)
[2018-11-14 12:00] VITALS: BP 120/85
[2018-11-14 16:00] VITALS: BP 111/72
[2018-11-14 20:00] VITALS: BP 116/72
[2018-11-15] VITALS: BP 110/70
[2018-11-15 04:00] VITALS: BP 100/67
[2018-11-15] MEDS: SLF 3 ML SYR IV SCH ×3 (05:03→20:25)
[2018-11-15] MEDS: MOM 30ML SUSPENSION UDC PO SCH (07:55)
[2018-11-15] MEDS: HEPARIN SOD (PORCINE) 5000 UNITS/ML VIAL SC SCH ×2 (07:55→20:24)
[2018-11-15] MEDS: DOCUSATE SODIUM 100 MG CAP PO SCH ×2 (07:55→20:24)
[2018-11-15] MEDS: VANCOMYCIN HCL 1,000 MG, VIAL MATE ADAPTER 1 EACH in D5W 250 ML IV SCH ×2 (07:56→20:00)
[2018-11-15 08:00] VITALS: BP 129/78
[2018-11-15 12:00] VITALS: BP 134/83
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
[2018-11-15 16:00] VITALS: BP 114/75
[2018-11-15 20:00] VITALS: BP 122/73
[2018-11-16] VITALS (12 sets, daily range): BP systolic 104–129; BP diastolic 62–87
[2018-11-16] MEDS: SLF 3 ML SYR IV SCH ×3 (05:41→21:02)
[2018-11-16] MEDS: VANCOMYCIN HCL 1,000 MG, VIAL MATE ADAPTER 1 EACH in D5W 250 ML IV SCH ×2 (07:32→20:04)
[2018-11-16] MEDS: MOM 30ML SUSPENSION UDC PO SCH (08:00)
[2018-11-16] MEDS: HEPARIN SOD (PORCINE) 5000 UNITS/ML VIAL SC SCH ×2 (08:00→20:04)
[2018-11-16] MEDS: DOCUSATE SODIUM 100 MG CAP PO SCH ×2 (08:00→20:04)
[2018-11-16] MEDS ORDERED: PROPOFOL 200 MG/20 ML VIAL As Ordered ONE (10:57)
[2018-11-16] MEDS ORDERED: MIDAZOLAM INJ 2 MG/2 ML VIAL (J2250) As Ordered ONE (10:57)
[2018-11-16] MEDS ORDERED: fentaNYL 100 MCG/2 ML INJECTION (J3010) As Ordered ONE ×2 (10:57→12:29)
[2018-11-16] MEDS ORDERED: ROCURONIUM BROMIDE 50 MG/5 ML VIAL As Ordered ONE ×2 (10:59→11:42)
[2018-11-16] MEDS ORDERED: LIDOCAINE 2% INJ 100 MG/5 ML SDV (FOR ANES.) As Ordered ONE (10:59)
[2018-11-16] MEDS ORDERED: ePHEDrine SULFATE 25 MG/5 ML(5MG/ML) SYRINGE As Ordered ONE (11:31)
[2018-11-16] MEDS ORDERED: KETOROLAC 60 MG/2 ML VIAL (J1885) As Ordered ONE (11:47)
[2018-11-16] MEDS ORDERED: dexameTHASONE 4 MG/ML 1ML VIAL (J1100) As Ordered ONE (11:47)
[2018-11-16] MEDS ORDERED: ONDANSETRON 4MG/2ML VIAL (J2405) As Ordered ONE (11:47)
[2018-11-16] MEDS ORDERED: fentaNYL 250 MCG/5 ML INJECTION (J3010) As Ordered ONE (11:53)
[2018-11-16] MEDS ORDERED: SUGAMMADEX SODIUM 500 MG/5 ML VIAL (BRIDION) As Ordered ONE (11:59)
[2018-11-16] MEDS ORDERED: PERCOCET 5MG/325MG TAB As Ordered ONE (12:29)
[2018-11-16] MEDS ORDERED: PERCOCET 5MG/325MG TAB PO PRN ×3 (12:30→12:45)
[2018-11-16] MEDS ORDERED: NORCO, ANEXSIA 5/325MG TABLET (HYDROcodone/ACETAMINOPHEN) PO PRN (12:30)
--- NOTE | 2018-11-16 12:34 | POST-OPPD ---
Postoperative Procedure Note Date Of Procedure: Nov 16, 2018 PREOPERATIVE DIAGNOSIS: Open wound lower sternum POSTOPERATIVE DIAGNOSIS: same FINDINGS: open wound [id number] PROCEDURE: Irrigation and debridement and closure of sternal wound with rotational cutaneous flap. SURGEON: Dr Squires [employer] HELPER: Dr Zapata ANESTHESIA: general SPECIMENS: debrided tissue ESTIMATED BLOOD LOSS: 20cc REPLACED: none DRAINS: 10mm DIANA drain COMPLICATIONS: none POSTOPERATIVE CONDITION: stable RACHEL SQUIRES DO Nov 16, 2018 12:34
[2018-11-16] MEDS ORDERED: fentaNYL 100 MCG/2 ML INJECTION (J3010) IV PRN (12:45)
[2018-11-16] MEDS ORDERED: LR 1,000 ML IV SCH (12:45)
[2018-11-16] MEDS ORDERED: KCL 20MEQ IN D5/NS 1000ML 1,000 ML IV SCH (13:00)
[2018-11-16] MEDS: KETOROLAC 30 MG/ML VIAL (J1885) IV SCH (17:30)
[2018-11-17] MEDS: KETOROLAC 30 MG/ML VIAL (J1885) IV SCH ×4 (00:03→18:01)
[2018-11-17 04:00] VITALS: BP 132/89
[2018-11-17 05:51] LABS: BASO # 0.1 10^3/uL (0.0-0.2); BASO % 0.5 % (0.0-1.0); EOS # 0.4 10^3/uL (0.0-0.50); EOS % 2.3 % (0.0-3.0); HEMATOCRIT 38.4 % (42.0-52.0); HEMOGLOBIN 13.2 g/dl (13.5-17.5); LYMPH # 2.9 10^3/uL (1.5-4.5); LYMPH % 17.6 % (24.0-44.0); MEAN CORPUSCULAR HEMOGLOBIN 32.4 pg (27.0-33.0); MEAN CORPUSCULAR HGB CONC 34.4 g/dl (32.0-36.5); MEAN CORPUSCULAR VOLUME 94.1 fl (80.0-96.0); MONO % 6.4 % (0.0-5.0); NEUTROPHILS # 11.8 10^3/uL (1.8-7.7); NEUTROPHILS % 72.5 % (36.0-66.0); PLATELET COUNT, AUTOMATED 249 10^3/uL (150-450); RED BLOOD COUNT 4.08 10^6/uL (4.30-6.10); WHITE BLOOD COUNT 16.2 10^3/uL (4.0-10.0)
[2018-11-17] MEDS: SLF 3 ML SYR IV SCH ×3 (06:00→20:31)
[2018-11-17 06:10] LABS: BLOOD UREA NITROGEN 12 MG/DL (7-18); CALCIUM LEVEL 9.4 MG/DL (8.5-10.1); CARBON DIOXIDE LEVEL 24 MEQ/L (21-32); CHLORIDE LEVEL 102 MEQ/L (98-107); CREATININE FOR GFR 0.93 MG/DL (0.70-1.30); GLOMERULAR FILTRATION RATE > 60.0 (>60); GLUCOSE, FASTING 95 MG/DL (70-100); POTASSIUM SERUM 3.9 MEQ/L (3.5-5.1); SODIUM LEVEL 135 MEQ/L (136-145)
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
[2018-11-17 08:00] VITALS: BP 139/90
[2018-11-17] MEDS: HEPARIN SOD (PORCINE) 5000 UNITS/ML VIAL SC SCH ×2 (08:14→20:30)
[2018-11-17] MEDS: MOM 30ML SUSPENSION UDC PO SCH (08:15)
[2018-11-17] MEDS: DOCUSATE SODIUM 100 MG CAP PO SCH ×2 (08:15→20:30)
[2018-11-17] MEDS: VANCOMYCIN HCL 1,000 MG, VIAL MATE ADAPTER 1 EACH in D5W 250 ML IV SCH (08:15)
--- NOTE | 2018-11-17 10:12 | IPNPDOC ---
Subjective General Date/Time Seen The patient was seen on 11/17/18 at 0800. Subject Chief Complaint/History The patient is a 48-year-old male admitted with a reason for visit of Wound Dehiscence. S/p wound irrigation, debridement and closure POD 1. Doing well. Pain controlled with Toradol. Ambulating. Current Medications Current Medications Current Medications Acetaminophen (Tylenol Tab) 650 mg Q6HP PRN PO T > 101.5 or CLIFTON; Start 10/31/18 at 14:00 Acetaminophen/ Hydrocodone Bitart ([place], Anexsia 5/325) 1 tab Q3HP PRN PO MILD PAIN (PS 1-4); Start 11/16/18 at 12:30 Acetaminophen/ Hydrocodone Bitart ([place], Anexsia 5/325) 1 tab Q3HP PRN PO MILD PAIN (PS 1-4); Start 10/31/18 at 14:00; Stop 11/13/18 at 14:13; Status DC Ampicillin Sodium/ Sulbactam Sodium 3 gm/Dextrose 100 ml @ 200 mls/hr Q6H IV ; Start 11/02/18 at 16:00; Stop 11/02/18 at 17:31; Status DC Ampicillin Sodium/ Sulbactam Sodium 3 gm/Dextrose 100 ml @ 200 mls/hr Q6H IV Last administered on 11/04/18at 12:22; Start 11/02/18 at 19:00; Stop 11/04/18 at 14:25; Status DC Bisacodyl (Dulcolax Suppository) 10 mg Q4HP PRN [place] CONSTIPATION; Start 10/31/18 at 14:00 Cefazolin Sodium 1 gm/Dextrose 50 ml @ 100 mls/hr Q8H IV Last administered on 11/02/18at 06:13; Start 10/31/18 at 15:00; Stop 11/02/18 at 07:29; Status DC Docusate Sodium (Colace) 100 mg BID PO Last administered on 11/17/18at 08:15; Start 10/31/18 at 09:00 Fentanyl Citrate (Sublimaze) 25 mcg Q5MP PRN IV MODERATE PAIN (PS 4-7); Start 11/16/18 at 12:45; Stop 11/16/18 at 13:45; Status DC Fentanyl Citrate (Sublimaze) 25 mcg Q5MP PRN IV MODERATE PAIN (PS 4-7); Start 11/02/18 at 15:15; Stop 11/02/18 at 16:15; Status DC Heparin Sodium (Porcine) (Heparin) 5,000 units Q12H SC Last administered on 11/17/18at 08:14; Start 10/31/18 at 21:00 Home Med (Med Rec Complete!) ASDIRECTED XX ; Start 10/31/18 at 16:00; Stop 10/31/18 at 16:00; Status DC Hydromorphone HCl (Dilaudid) 0.2 mg Q5MP PRN IV MODERATE/SEVERE PAIN (PS 5-10); Start 11/02/18 at 15:15; Stop 11/02/18 at 16:15; Status DC Ketorolac Tromethamine (ToRADol) 30 mg Q6H IV Last administered on 11/17/18at 06:31; Start 11/16/18 at 18:00; Stop 11/21/18 at 17:59 Ketorolac Tromethamine (ToRADol) 30 mg Q6H IV Last administered on 11/05/18at 08:00; Start 10/31/18 at 14:00; Stop 11/05/18 at 13:59; Status DC Lactated Ringer's 1,000 ml @ 100 mls/hr Q10H IV ; Start 11/16/18 at 12:45; Stop 11/16/18 at 13:45; Status DC Lactated Ringer's 1,000 ml @ 100 mls/hr Q10H IV ; Start 11/02/18 at 15:15; Stop 11/02/18 at 16:15; Status DC Magnesium Hydroxide (Milk Of Magnesia) 30 ml DAILY PO ; Start 10/31/18 at 09:00 Metoclopramide HCl (REGLAN INJection) 10 mg Q6HP PRN IV NAUSEA OR VOMITING; Start 11/02/18 at 15:15; Stop 11/02/18 at 16:15; Status DC Miscellaneous (Unresolved Clarification Entry) SEE LABEL COMMENTS DAILY XX ; Start 11/06/18 at 09:00; Stop 11/06/18 at 14:57; Status DC Miscellaneous (Unresolved Clarification Entry) SEE LABEL COMMENTS DAILY XX ; Start 11/12/18 at 09:00; Stop 11/16/18 at 12:34; Status DC Ondansetron HCl (ZOFRAN INJection) 4 mg Q4HP PRN IV NAUSEA; Start 10/31/18 at 14:00 Ondansetron HCl (ZOFRAN INJection) 4 mg Q4HP PRN IV NAUSEA OR VOMITING; Start 11/02/18 at 15:15; Stop 11/02/18 at 16:15; Status DC Oxycodone/ Acetaminophen (Percocet 5mg/ 325mg Tablet) 1 tab ASDIRECTED PRN PO MILD/MODERATE PAIN (PS 1-7); Start 11/16/18 at 12:45; Stop 11/16/18 at 13:45; S tatus DC Oxycodone/ Acetaminophen (Percocet 5mg/ 325mg Tablet) 1 tab ASDIRECTED PRN PO MILD/MODERATE PAIN (PS 1-7); Start 11/02/18 at 15:15; Stop 11/02/18 at 16:15; Status DC Oxycodone/ Acetaminophen (Percocet 5mg/ 325mg Tablet) 1 tab Q4HP PRN PO MODERATE PAIN (PS 5-7) Last administered on 11/16/18at 12:34; Start 11/16/18 at 12:30 Oxycodone/ Acetaminophen (Percocet 5mg/ 325mg Tablet) 1 tab Q4HP PRN PO MODERATE PAIN (PS 5-7); Start 10/31/18 at 14:00; Stop 11/13/18 at 14:12; Status DC Oxycodone/ Acetaminophen (Percocet 5mg/ 325mg Tablet) 2 tab Q4HP PRN PO SEVERE PAIN (PS 8-10); Start 11/16/18 at 12:30 Oxycodone/ Acetaminophen (Percocet 5mg/ 325mg Tablet) 2 tab Q4HP PRN PO SEVERE PAIN (PS 8-10); Start 10/31/18 at 14:00; Stop 11/13/18 at 14:12; Status DC Potassium Chloride/Dextrose/ Sod Cl 1,000 ml @ 75 mls/hr [id number] IV Last administered on 11/16/18at 13:21; Start 11/16/18 at 13:00; Stop 11/16/18 at 18:49; Status DC Potassium Chloride/Dextrose/ Sod Cl 1,000 ml @ 75 mls/hr [id number] IV Last administered on 10/31/18at 17:04; Start 10/31/18 at 14:00; Stop 11/01/18 at 01:28; Status DC Sodium Chloride (Saline Lock Flush) 2 ml ASDIRECTED PRN IV SEE LABEL COMMENTS; Start 11/07/18 at 12:15 Sodium Chloride (Saline Lock Flush) 2 ml SLF IV Last administered on 11/17/18at 06:00; Start 11/07/18 at 14:00 Vancomycin HCl 1000 mg/IV Miscellaneous Supplies 1 each/ Dextrose 270 ml @ 270 mls/hr Q12H IV Last administered on 11/17/18at 08:15; Start 11/09/18 at 20:00 Vancomycin HCl 1000 mg/IV Miscellaneous Supplies 1 each/ Dextrose 270 ml @ 270 mls/hr Q12H IV Last administered on 11/09/18at 02:35; Start 11/01/18 at 14:00; Stop 11/09/18 at 13:23; Status DC Allergies Coded Allergies: No Known Allergies (Unverified , 10/15/17) Objective Physical Examination Examination GENERAL APPEARANCE:Patient seen, laying in bed, awake, alert, and oriented. Comfortable, in no acute distress. SKIN: Warm and moist. Incision intact. Nylon sutures. DIANA drain with serous sanguinous drainage 10cc. HEENT: Normocephalic, atraumatic. [place] palpebral conjunctiva, anicteric sclerae. Lips and mucosa appear moist. NECK: Supple, no thyromegaly. No obvious jugular venous distention. LUNGS: Clear to auscultation bilaterally. No wheezing appreciated. HEART: No chest wall abnormalities. Regular rate and rhythm with no murmurs ap preciated. Vital Signs Vital Signs Date Time Temp Pulse Resp B/P (MAP) Pulse Ox O2 Delivery O2 Flow Rate FiO2 11/17/18 08:00 96.8 72 18 139/90 (106) 96 11/16/18 12:42 3 I&Os I&O- Last 24 Hours up to 6 AM 11/17/18 05:59 Intake Total 3490 ml Output Total 4550 ml Balance -1060 ml Laboratory Data Labs 24H Laboratory Tests 2 11/17/18 05:05: Immature Granulocyte % (Auto) 0.7, White Blood Count 16.2H, Red Blood Count 4.08 L, Hemoglobin 13.2L, Hematocrit 38.4L, Mean Corpuscular Volume 94.1, Mean Corpuscular Hemoglobin 32.4, Mean Corpuscular Hemoglobin Concent 34.4, Red Cell Distribution Width 12.8, Platelet Count 249, Neutrophils (%) (Auto) 72.5H, Lymphocytes (%) (Auto) 17.6L, Monocytes (%) (Auto) 6.4H, Eosinophils (%) (Auto) 2.3, Basophils (%) (Auto) 0.5, Neutrophils # (Auto) 11.8H, Lymphocytes # (Auto) 2.9, Monocytes # (Auto) 1.0H, Eosinophils # (Auto) 0.4, Basophils # (Auto) 0.1, Nucleated Red Blood Cells % (auto) 0.0, Anion Gap 9, Glomerular Filtration Rate > 60.0, Blood Urea Nitrogen 12, Creatinine 0.93, Sodium Level 135L, Potassium Level 3.9, Chloride Level 102, Carbon Dioxide Level 24, Calcium Level 9.4 CBC/BMP Laboratory Tests 11/17/18 05:05 Red Blood Count 4.08 L, Mean Corpuscular Volume 94.1, Mean Corpuscular Hemoglobin 32.4, Mean Corpuscular Hemoglobin Concent 34.4, Red Cell Distribution Width 12.8, Neutrophils (%) (Auto) 72.5 H, Lymphocytes (%) (Auto) 17.6 L, Monocytes (%) (Auto) 6.4 H, Eosinophils (%) (Auto) 2.3, Basophils (%) (Auto) 0.5, Neutrophils # (Auto) 11.8 H, Lymphocytes # (Auto) 2.9, Monocytes # (Auto) 1.0 H, Eosinophils # (Auto) 0.4, Basophils # (Auto) 0.1, Calcium Level 9.4 Impression Lower chest wound. Incision intact. Continue with DIANA monitoring. Minimize upper extremity motion. Pain control No pressure on the chest. D/c planning. Plan / VTE VTE Prophylaxis Ordered?: Yes RACHEL SQUIRES DO Nov 17, 2018 10:12
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
[2018-11-17 12:00] VITALS: BP 134/88
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
[2018-11-17 16:00] VITALS: BP 115/65
[2018-11-17 20:00] VITALS: BP 103/57
[2018-11-18] VITALS: BP 102/64
[2018-11-18] MEDS: KETOROLAC 30 MG/ML VIAL (J1885) IV SCH ×2 (00:56→06:40)
[2018-11-18 04:00] VITALS: BP 115/72
[2018-11-18 05:37] LABS: BASO # 0.1 10^3/uL (0.0-0.2); BASO % 0.9 % (0.0-1.0); EOS # 0.8 10^3/uL (0.0-0.50); EOS % 6.7 % (0.0-3.0); HEMATOCRIT 38.6 % (42.0-52.0); HEMOGLOBIN 12.9 g/dl (13.5-17.5); LYMPH # 3.1 10^3/uL (1.5-4.5); LYMPH % 27.1 % (24.0-44.0); MEAN CORPUSCULAR HEMOGLOBIN 32.3 pg (27.0-33.0); MEAN CORPUSCULAR HGB CONC 33.4 g/dl (32.0-36.5); MEAN CORPUSCULAR VOLUME 96.5 fl (80.0-96.0); MONO % 8.7 % (0.0-5.0); NEUTROPHILS # 6.4 10^3/uL (1.8-7.7); NEUTROPHILS % 56.1 % (36.0-66.0); PLATELET COUNT, AUTOMATED 234 10^3/uL (150-450); WHITE BLOOD COUNT 11.4 10^3/uL (4.0-10.0)
[2018-11-18 05:55] LABS: BLOOD UREA NITROGEN 18 MG/DL (7-18); CALCIUM LEVEL 8.5 MG/DL (8.5-10.1); CARBON DIOXIDE LEVEL 27 MEQ/L (21-32); CHLORIDE LEVEL 108 MEQ/L (98-107); CREATININE FOR GFR 1.18 MG/DL (0.70-1.30); GLOMERULAR FILTRATION RATE > 60.0 (>60); GLUCOSE, FASTING 80 MG/DL (70-100); POTASSIUM SERUM 4.4 MEQ/L (3.5-5.1); SODIUM LEVEL 142 MEQ/L (136-145)
[2018-11-18] MEDS: SLF 3 ML SYR IV SCH (06:39)
[2018-11-18 08:00] VITALS: BP 117/75
--- NOTE | 2018-11-18 08:53 | IPNPDOC ---
Subjective General Date/Time Seen The patient was seen on 11/18/18 at 07:50. Subject Chief Complaint/History The patient is a 48-year-old male admitted with a reason for visit of Wound Dehiscence. Post wound closure POD 2. Doing well. Pain improved. Ambulating. Current Medications Current Medications Current Medications Acetaminophen (Tylenol Tab) 650 mg Q6HP PRN PO T > 101.5 or CLIFTON; Start 10/31/18 at 14:00 Acetaminophen/ Hydrocodone Bitart ([place], Anexsia 5/325) 1 tab Q3HP PRN PO MILD PAIN (PS 1-4); Start 11/16/18 at 12:30 Acetaminophen/ Hydrocodone Bitart ([place], Anexsia 5/325) 1 tab Q3HP PRN PO MILD PAIN (PS 1-4); Start 10/31/18 at 14:00; Stop 11/13/18 at 14:13; Status DC Ampicillin Sodium/ Sulbactam Sodium 3 gm/Dextrose 100 ml @ 200 mls/hr Q6H IV ; Start 11/02/18 at 16:00; Stop 11/02/18 at 17:31; Status DC Ampicillin Sodium/ Sulbactam Sodium 3 gm/Dextrose 100 ml @ 200 mls/hr Q6H IV Last administered on 11/04/18at 12:22; Start 11/02/18 at 19:00; Stop 11/04/18 at 14:25; Status DC Bisacodyl (Dulcolax Suppository) 10 mg Q4HP PRN [place] CONSTIPATION; Start 10/31/18 at 14:00 Cefazolin Sodium 1 gm/Dextrose 50 ml @ 100 mls/hr Q8H IV Last administered on 11/02/18at 06:13; Start 10/31/18 at 15:00; Stop 11/02/18 at 07:29; Status DC Docusate Sodium (Colace) 100 mg BID PO Last administered on 11/17/18at 20:30; Start 10/31/18 at 09:00 Fentanyl Citrate (Sublimaze) 25 mcg Q5MP PRN IV MODERATE PAIN (PS 4-7); Start 11/16/18 at 12:45; Stop 11/16/18 at 13:45; Status DC Fentanyl Citrate (Sublimaze) 25 mcg Q5MP PRN IV MODERATE PAIN (PS 4-7); Start 11/02/18 at 15:15; Stop 11/02/18 at 16:15; Status DC Heparin Sodium (Porcine) (Heparin) 5,000 units Q12H SC Last administered on 11/17/18at 20:30; Start 10/31/18 at 21:00 Home Med (Med Rec Complete!) ASDIRECTED XX ; Start 10/31/18 at 16:00; Stop 10/31/18 at 16:00; Status DC Hydromorphone HCl (Dilaudid) 0.2 mg Q5MP PRN IV MODERATE/SEVERE PAIN (PS 5-10); Start 11/02/18 at 15:15; Stop 11/02/18 at 16:15; Status DC Ketorolac Tromethamine (ToRADol) 30 mg Q6H IV Last administered on 11/18/18at 06:40; Start 11/16/18 at 18:00; Stop 11/21/18 at 17:59 Ketorolac Tromethamine (ToRADol) 30 mg Q6H IV Last administered on 11/05/18at 08:00; Start 10/31/18 at 14:00; Stop 11/05/18 at 13:59; Status DC Lactated Ringer's 1,000 ml @ 100 mls/hr Q10H IV ; Start 11/16/18 at 12:45; Stop 11/16/18 at 13:45; Status DC Lactated Ringer's 1,000 ml @ 100 mls/hr Q10H IV ; Start 11/02/18 at 15:15; Stop 11/02/18 at 16:15; Status DC Magnesium Hydroxide (Milk Of Magnesia) 30 ml DAILY PO ; Start 10/31/18 at 09:00 Metoclopramide HCl (REGLAN INJection) 10 mg Q6HP PRN IV NAUSEA OR VOMITING; Start 11/02/18 at 15:15; Stop 11/02/18 at 16:15; Status DC Miscellaneous (Unresolved Clarification Entry) SEE LABEL COMMENTS DAILY XX ; Start 11/06/18 at 09:00; Stop 11/06/18 at 14:57; Status DC Miscellaneous (Unresolved Clarification Entry) SEE LABEL COMMENTS DAILY XX ; Start 11/12/18 at 09:00; Stop 11/16/18 at 12:34; Status DC Ondansetron HCl (ZOFRAN INJection) 4 mg Q4HP PRN IV NAUSEA; Start 10/31/18 at 14:00 Ondansetron HCl (ZOFRAN INJection) 4 mg Q4HP PRN IV NAUSEA OR VOMITING; Start 11/02/18 at 15:15; Stop 11/02/18 at 16:15; Status DC Oxycodone/ Acetaminophen (Percocet 5mg/ 325mg Tablet) 1 tab ASDIRECTED PRN PO MILD/MODERATE PAIN (PS 1-7); Start 11/16/18 at 12:45; Stop 11/16/18 at 13:45; Status DC Oxycodone/ Acetaminophen (Percocet 5mg/ 325mg Tablet) 1 tab ASDIRECTED PRN PO MILD/MODERATE PAIN (PS 1-7); Start 11/02/18 at 15:15; Stop 11/02/18 at 16:15; Status DC Oxycodone/ Acetaminophen (Percocet 5mg/ 325mg Tablet) 1 tab Q4HP PRN PO MODERATE PAIN (PS 5-7) Last administered on 11/16/18at 12:34; Start 11/16/18 at 12:30 Oxycodone/ Acetaminophen (Percocet 5mg/ 325mg Tablet) 1 tab Q4HP PRN PO MODERATE PAIN (PS 5-7); Start 10/31/18 at 14:00; Stop 11/13/18 at 14:12; Status DC Oxycodone/ Acetaminophen (Percocet 5mg/ 325mg Tablet) 2 tab Q4HP PRN PO SEVERE PAIN (PS 8-10); Start 11/16/18 at 12:30 Oxycodone/ Acetaminophen (Percocet 5mg/ 325mg Tablet) 2 tab Q4HP PRN PO SEVERE PAIN (PS 8-10); Start 10/31/18 at 14:00; Stop 11/13/18 at 14:12; Status DC Potassium Chloride/Dextrose/ Sod Cl 1,000 ml @ 75 mls/hr [id number] IV Last ad ministered on 11/16/18at 13:21; Start 11/16/18 at 13:00; Stop 11/16/18 at 18:49; Status DC Potassium Chloride/Dextrose/ Sod Cl 1,000 ml @ 75 mls/hr [id number] IV Last administered on 10/31/18at 17:04; Start 10/31/18 at 14:00; Stop 11/01/18 at 01:28; Status DC Sodium Chloride (Saline Lock Flush) 2 ml ASDIRECTED PRN IV SEE LABEL COMMENTS; Start 11/07/18 at 12:15 Sodium Chloride (Saline Lock Flush) 2 ml SLF IV Last administered on 11/18/18at 06:39; Start 11/07/18 at 14:00 Vancomycin HCl 1000 mg/IV Miscellaneous Supplies 1 each/ Dextrose 270 ml @ 270 mls/hr Q12H IV Last administered on 11/17/18at 08:15; Start 11/09/18 at 20:00; Stop 11/17/18 at 19:54; Status DC Vancomycin HCl 1000 mg/IV Miscellaneous Supplies 1 each/ Dextrose 270 ml @ 270 mls/hr Q12H IV Last administered on 11/09/18at 02:35; Start 11/01/18 at 14:00; Stop 11/09/18 at 13:23; Status DC Allergies Coded Allergies: No Known Allergies (Unverified , 10/15/17) Objective Physical Examination Examination GENERAL APPEARANCE:Patient seen, laying in bed, awake, alert, and oriented. Comfortable, in no acute distress. SKIN: Warm and moist. Chest incision intact. Nylon sutures in place. DIANA drain with light serosanguineous drainage 10cc/24hrs. LUNGS: Clear to auscultation bilaterally. No wheezing appreciated. HEART: No chest wall abnormalities. Regular rate and rhythm with no murmurs appreciated. Vital Signs Vital Signs Date Time Temp Pulse Resp B/P (MAP) Pulse Ox O2 Delivery O2 Flow Rate FiO2 11/18/18 08:00 98.0 71 18 117/75 (89) 96 11/16/18 12:42 3 I&Os I&O- Last 24 Hours up to 6 AM 11/18/18 05:59 Intake Total 2280 ml Output Total 2710 ml Balance -430 ml Laboratory Data Labs 24H Laboratory Tests 2 11/18/18 04:57: Immature Granulocyte % (Auto) 0.5, White Blood Count 11.4H, Red Blood Count 4.00L, Hemoglobin 12.9L, Hematocrit 38.6L, Mean Corpuscular Volume 96.5H, Mean Corpuscular Hemoglobin 32.3, Mean Corpuscular Hemoglobin Concent 33.4, Red Cell Distribution Width 12.8, Platelet Count 234, Neutrophils (%) (Auto) 56.1, Lymphocytes (%) (Auto) 27.1, Monocytes (%) (Auto) 8.7H, Eosinophils (%) (Auto) 6.7H, Basophils (%) (Auto) 0.9, Neutrophils # (Auto) 6.4, Lymphocytes # (Auto) 3.1, Monocytes # (Auto) 1.0H, Eosinophils # (Auto) 0.8H, Basophils # (Auto) 0.1, Nucleated Red Blood Cells % (auto) 0.0, Anion Gap 7L, Glomerular Filtration Rate > 60.0, Blood Urea Nitrogen 18, Creatinine 1.18, Sodium Level 142#, Potassium Level 4.4, Chloride Level 108H, Carbon Dioxide Level 27, Calcium Level 8.5 CBC/BMP Laboratory Tests 11/18/18 04:57 Red Blood Count 4.00 L, Mean Corpuscular Volume 96.5 H, Mean Corpuscular Hemoglobin 32.3, Mean Corpuscular Hemoglobin Concent 33.4, Red Cell Distribution Width 12.8, Neutrophils (%) (Auto) 56.1, Lymphocytes (%) (Auto) 27.1, Monocytes (%) (Auto) 8.7 H, Eosinophils (%) (Auto) 6.7 H, Basophils (%) (Auto) 0.9, Neutrophils # (Auto) 6.4, Lymphocytes # (Auto) 3.1, Monocytes # (Auto) 1.0 H, Eosinophils # (Auto) 0.8 H, Basophils # (Auto) 0.1, Calcium Level 8.5 Impression Lower chest open wound. Wound closed, clean, intact. Dressing changed Stable for discharge. Monitor drain at home daily. F/up plastic surgery 11/23/18 at 11:30 Plan / VTE VTE Prophylaxis Ordered?: Yes RACHEL SQUIRES DO Nov 18, 2018 08:53
[2018-11-18] MEDS: MOM 30ML SUSPENSION UDC PO SCH (09:00)
[2018-11-18] MEDS: DOCUSATE SODIUM 100 MG CAP PO SCH (09:00)
[2018-11-18] MEDS: HEPARIN SOD (PORCINE) 5000 UNITS/ML VIAL SC SCH (09:00)
--- NOTE | 2018-11-18 10:48 | REP ---
CHEST, TWO VIEWS: Two views of the chest are performed and compared with prior study of 11/17/2018. No new infiltrate is seen bilaterally. The heart is normal in size and the mediastinal silhouette is unchanged. The catheter in the soft tissues anterior to the heart is unchanged in position. IMPRESSION: Stable exam. Electronically Signed by Wenceslao Li MD 11/18/2018 07:52 P
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
== END 2018-11-18 11:10 | disposition home or self-care (01) | DRG 941 ==
LOC: M ED 13:36 → M ED INP 13:50 → M PCU 16:00
PROVIDERS: ADMIT Thoracic Surgery (Cardiothoracic Vascular Surgery); ATTEND Thoracic Surgery (Cardiothoracic Vascular Surgery)
PROC: 0HB5XZZ Excision of Chest Skin, External Approach (ICD-10-PCS; principal; 2018-11-02 13:45)
PROC: 0HX5XZZ Transfer Chest Skin, External Approach (ICD-10-PCS; 2018-11-16)
DX: T81.33XD Disruption of traumatic injury wound repair, subsequent encounter (principal); Z79.82 Long term (current) use of aspirin; Z79.899 Other long term (current) drug therapy; J44.9 Chronic obstructive pulmonary disease, unspecified; Y83.8 Other surgical procedures as the cause of abnormal reaction of the patient, or of later complication, without mention of misadventure at the time of the procedure

== ENCOUNTER → 2020-07-27 | Outpatient (CLI) | payer OTHER ==
[~2020-07-27] MED LIST changes: +VITA-183 PO; -VITA1CAP2 PO
--- NOTE | 2020-07-31 16:32 | SLEEP ---
[facility] NOCTURNAL POLYSOMNOGRAPHY DATE: 07/27/2020 ORDERED BY: Dr. Paul Stevenson Nocturnal polysomnography was performed for evaluation of sleep physiology. Eight hours and 53 minutes of data were reviewed. There were 401.5 minutes of sleep identified. Sleep latency was mildly prolonged at 24 minutes. REM latency was normal at 68 minutes. Sleep architecture showed fragmentation. There were three REM cycles noted. Overall sleep efficiency was 76.5%. The electrocardiogram showed a sinus rhythm with an average heart rate of 64 beats per minute, rate range 44-82. EEG showed normal waveforms for wake and sleep. There were 54 respiratory events identified of ten seconds in duration or greater for an apnea hypopnea index of 8.2. The events were not exclusive to sleep stage, they were primarily obstructive, not exclusive to body posture. Arousals from respiratory events occurred 4.9 times per hour and occasional oxygen desaturations below 90% were noted. There was some activity in the limb leads noted throughout the study. Limb movement arousal index was 6.7. IMPRESSIONS: Obstructive sleep apnea syndrome (G47.33). Apnea hypopnea index 8.1. RECOMMENDATION: The patient should be encouraged to return to the [facility] for [facility] therapy. In the interim, alcohol and sedative avoidance should be practiced and caution exercised during the operation of motor vehicles.
== END ==
LOC: M SLEEP 20:00
PROVIDERS: ATTEND Internal Medicine
DX: G47.33 Obstructive sleep apnea (adult) (pediatric) (principal)

== ENCOUNTER 2021-03-16 21:40 | Inpatient (IN) | payer OTHER ==
[~2021-03-16] VITALS: Ht 165.1 cm; Wt 55.1 kg
[~2021-03-16 21:40] MED LIST changes: +ASPI-569 PO; -ASPI81TAEC PO
--- NOTE | 2021-03-16 22:19 | ECGEPIP ---
[facility] - ED Test Date: 2021-03-16 Pat Name: KEITH OAKES Department: Room: - Gender: Male Consumer Marketing Analyst: HEIDI : 1970 Requested By: CARLOS Paredes Order Number: [id number] Reading MD: Luda Bowman Measurements Intervals [place]ott Rate: 91 P: 61 IA: 158 QRS: 235 QRSD: 78 T: 42 QT: 350 QTc: 430 Interpretive Statements Normal sinus rhythm Right superior axis deviation NSTTW abnormalities Pulmonary disease pattern baseline artifact may affect interpretation Electronically Signed on 03-16-2021 22:18:59 EDT by Luda Bowman
[2021-03-16 22:27] LABS: BASO # 0.1 10^3/uL (0.0-0.2); BASO % 0.5 % (0.0-1.0); EOS # 0.7 10^3/uL (0.0-0.5); EOS % 5.1 % (0.0-3.0); HEMATOCRIT 52.3 % (42.0-52.0); HEMOGLOBIN 17.8 g/dl (13.5-17.5); LYMPH # 2.2 10^3/uL (1.5-5.0); LYMPH % 14.8 % (24.0-44.0); MEAN CORPUSCULAR HEMOGLOBIN 33.5 pg (27.0-33.0); MEAN CORPUSCULAR VOLUME 98.3 fl (80.0-96.0); MONO # 0.8 10^3/uL (0.0-0.8); MONO % 5.4 % (2.0-8.0); NEUTROPHILS # 10.8 10^3/uL (1.5-8.5); NEUTROPHILS % 73.7 % (36.0-66.0); PLATELET COUNT, AUTOMATED 219 10^3/uL (150-450); RED BLOOD COUNT 5.32 10^6/uL (4.30-6.10); WHITE BLOOD COUNT 14.6 10^3/uL (4.0-10.0)
[2021-03-16 22:31] LABS: ABG BASE EXCESS -0.9 (-2.0-2.0); ABG HCO3 25.7 MEQ/L (22.0-26.0); ABG O2 SATURATION 90.1 % (95.0-99.0); ABG PARTIAL PRESSURE CO2 48.8 mmHg (35.0-45.0); ABG PARTIAL PRESSURE O2 56.1 mmHg (75.0-100.0); ABG STANDARD HCO3 23.5 MEQ/L (22.0-26.0); ABG TOTAL CO2 27.2 MEQ/L (22.0-29.0); ABG pH (ARTERIAL) 7.339 UNITS (7.350-7.450)
[2021-03-16 22:51] LABS: ALBUMIN 3.9 GM/DL (3.2-5.2); ALT/SGPT 23 U/L (12-78); BILIRUBIN,DIRECT 0.2 MG/DL (0.0-0.2); BILIRUBIN,TOTAL 0.6 MG/DL (0.2-1.0); BLOOD UREA NITROGEN 6 MG/DL (7-18); CALCIUM LEVEL 8.9 MG/DL (8.5-10.1); CARBON DIOXIDE LEVEL 27 MEQ/L (21-32); CHLORIDE LEVEL 109 MEQ/L (98-107); CREATININE FOR GFR 0.73 MG/DL (0.70-1.30); GLOMERULAR FILTRATION RATE > 60.0 (>60); GLUCOSE, FASTING 84 MG/DL (70-100); POTASSIUM SERUM 4.6 MEQ/L (3.5-5.1); SODIUM LEVEL 140 MEQ/L (136-145); TOTAL PROTEIN 6.8 GM/DL (6.4-8.2)
--- NOTE | 2021-03-16 22:51 | REPVR ---
PROCEDURE INFORMATION: Exam: XR Chest Exam date and time: 03/16/2021 10:08 PM Age: 50 years old Clinical indication: Cough and dyspnea; Additional info: Dyspnea/cough TECHNIQUE: Imaging protocol: XR of the chest. Views: 1 view. COMPARISON: CR Chest, 2 view PA, Lat 11/18/2018 7:31 AM FINDINGS: Lungs: Pulmonary hyperinflation with increased lucency of lung. There are no interval infiltrates. Pleural spaces: Question of minimal left pleural effusion. Heart/Mediastinum: The heart and mediastinum are unchanged. Bones/joints: Unremarkable. IMPRESSION: 1. Question of minimal left pleural effusion. 2. Otherwise stable chest since 11/18/2018 with evidence of COPD. Electronically signed by: Inocente Li On 03/16/2021 22:50:29 PM
[2021-03-16 22:53] LABS: RSV AMPLIFICATION NEGATIVE (NEGATIVE)
[2021-03-16] MEDS ORDERED: methylPREDNISolone 125MG 2ML VIAL IV ONE (23:15)
[2021-03-16] MEDS ORDERED: ALBUTEROL SULFATE 2.5 MG/0.5 ML INH NEB SOLN INH ONE (23:15)
[2021-03-16] MEDS ORDERED: IPRATROPIUM 0.02% SOLN 0.5MG 2.5ML NEB INH ONE (23:15)
[2021-03-17] MEDS ORDERED: D31000TA2 PO (03:41)
[2021-03-17] MEDS ORDERED: MOM 30ML SUSPENSION UDC PO PRN (03:45)
[2021-03-17] MEDS ORDERED: MAALOX 30 ML SUSP *UDC PO PRN (03:45)
[2021-03-17] MEDS ORDERED: ACETAMINOPHEN TAB 650MG DOSE (2X325MG) PO PRN (03:45)
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
[2021-03-17] MEDS: cefTRIAXone SOD 2 GM in D5W MINI-BAG PLUS 50 ML IV SCH (04:04)
[2021-03-17 05:30] VITALS: BP 115/77
[2021-03-17] MEDS: AZITHROMYCIN INJ 500 MG, VIAL MATE ADAPTER 1 EACH in NS 250 ML IV SCH (05:49)
[2021-03-17] MEDS: IPRATROPIUM 0.5MG/ALBUTEROL 2.5MG INH SOL UD 3ML (DUONEB) NEB SCH ×6 (05:52→23:01)
[2021-03-17] MEDS ORDERED: methylPREDNISolone 125MG 2ML VIAL IV SCH (06:00)
[2021-03-17] MEDS: BUDESONIDE 0.5 MG/2 ML INHALATION SUSPENSION INH SCH ×2 (06:28→19:11)
[2021-03-17] MEDS ORDERED: NS 1,000 ML IV SCH (07:40)
[2021-03-17] MEDS ORDERED: LORazepam 2 MG TAB PO PRN (07:40)
[2021-03-17] MEDS ORDERED: NICOTINE 14 MG/24 HR TRANSDERMAL TD PRN (07:40)
[2021-03-17 08:03] VITALS: BP 126/78
[2021-03-17] MEDS: ENOXAPARIN 40MG/0.4ML SYRINGE (J1650 PER 10MG) SC SCH (08:27)
[2021-03-17] MEDS: MULTIVITAMINS/MINERALS THERAP 1 TAB PO SCH (08:27)
[2021-03-17] MEDS: THIAMINE 100 MG TAB PO SCH ×2 (08:27→21:43)
[2021-03-17] MEDS: ASPIRIN 81MG ENTERIC TABLET PO SCH (08:27)
[2021-03-17] MEDS: FOLIC ACID 1 MG TAB PO SCH (08:28)
[2021-03-17 10:00] VITALS: BP 126/80
[2021-03-17] MEDS ORDERED: NS IV ONE (12:05)
[2021-03-17] MEDS ORDERED: SODIUM CHLORIDE 0.9% 1000ML IV ONE (12:20)
[2021-03-17 14:00] VITALS: BP 127/84
--- NOTE | 2021-03-17 14:50 | IPNPDOC ---
Date Seen The patient was seen on 03/17/21. Progress Note SUBJECTIVE: Mr. Casiano is a pleasant 50 year old male sitting in the hospital bed when I walked into the room. He states that he feels much better now than he did when he first came to the ED early this morning. He states that he was officially diagnosed with COPD at the [facility] in [place]. He ran out of his maintenance inhaler (anoro ellipta) about 6 months ago. He has had to use his rescue inhaler 3+ times per day in the last two weeks. He currently has an oxygen saturation of 90% on 2L NC; he states that he does not use oxygen at home. He has a good appetite and ate a robust breakfast (sausage breakfast sandwich, coffee, and a bagel). He lives at home with his and their dogs and works as a treatment plant operator. He denies fevers, chills, weight loss, chest pain, loss of appetite. He admits to fatigue. OBJECTIVE PHYSICAL EXAMINATION: VITAL SIGNS: Please see below. GENERAL: a well nourished male sitting in no acute distress HEENT: sclera nonicteric, poor dentition, mucous membranes moist, trachea midline, no lymphadenopathy CARDIOVASCULAR: Heart sounds distant, regular rate and rhythm RESPIRATORY: equal air intake bilaterally, distant breath sounds, expiratory wheezes appreciated in posterior bases bilaterally, no rhonchi or rales ABDOMINAL: ventral hernia noted, soft, nontender to palpation in all four quadrants, no organomegaly EXTREMITIES: no lower extremity edema noted on exam. no rashes or ulcerations. Tattoo noted on left upper extremity PSYCHOLOGICAL: alert and oriented x 3, normal affect LABORATORY DATA, IMAGING STUDIES, MICROBIOLOGY: Please see below. Chest x-ray 03/16/21: Impression: 1. Question of minimal left pleural effusion. 2. Otherwise stable chest since 11/18/2018 with evidence of COPD. Echocardiogram: 10/14/20: 1. Small pericardial effusion over the lateral wall of the right ventricle and anteriorly. No diastolic chamber collapse. No significant variation of intracardiac velocities. 2. Normal left ventricle internal dimensions, wall thickness, regional wall motion, wall thickening, systolic and diastolic function. 3. Normal right ventricle size and systolic function. 4. Normal size of the atria. DVT prophylaxis ordered?: Yes continue lovenox ASSESSMENT AND PLAN: Mr. Casiano is a 50 year old male with pmhx of COPD, GEOFFREY, polycythemia, hemochromatosis, and a heart murmur who presented to the ED with worsening shortness of breath of one days duration, was found to be hypoxic and was admitted to the hospital for acute hypoxic and hypercapneic respiratory failure and copd exacerbation. PROBLEMS: Acute hypoxic/hypercapneic respiratory failure 2/2 to COPD exacerbation -started solumedrol 40mg IV q 24hrs -Patient has an oxygen saturation of 90% on 2L oxygen -Duonebs ordered q 4 hours -continue cefriaxone and azithromycin Day 1 -Continue pulmicort -Patient is a current smoker and does not use oxygen at home -Will monitor patient WBC, today it is elevated at 14.6 -Procalcitonin is pending Elevated lactic acid -2.2 upon presentation to ED. -Repeat 3.5 this afternoon after receiving a 1L bolus NS -This is likely due to hypoxia. - If the 4 hour follow up lactic acid is elevated I will order an ABG. GEOFFREY -Patient does not use a CPAP -Patient had nocturnal polysomnography performed at [facility] 07/27/20- they recommended he return to the Sleep center for pressure therapy -The patient states he was told he does not need a CPAP. -Right axis present on EKG Tobacco use disorder -patient currently smokes 10-15 cigarettes per day. -He is not interested in quitting at this time -Started smoking at age 16 and smoked 2ppd until 3 years ago. Possible alcohol use disorder -Patient states he drinks 1-2 beers per day but is unable to remember how much he drank yesterday. He believes it wasn't more than 12 beers -Patient was put on CIWA protocol. -Will review this tomorrow. Patient may not need to be on CIWA protocol. DVT prophylaxis: yes continue lovenox DISPOSITION: Will continue to monitor patient's lactic acid level. This is likely secondary to hypoxia and not hypovolemia. He was given a 1L bolus of NS and did not have much improvement in his lactic acid level. VS, I&O, 24H, Fishbone Vital Signs/I&O Vital Signs Date Time Temp Pulse Resp B/P (MAP) Pulse Ox O2 Delivery O2 Flow Rate FiO2 03/17/21 10:00 99.1 97 20 126/80 (95) 90 Nasal Cannula 2.0 I&O- Last 24 Hours up to 6 AM 03/17/21 06:00 Intake Total 50 ml Balance 50 ml Laboratory Data 24H LABS Laboratory Tests 2 03/16/21 21:44: Blood Gas Bicarbonate Standard 23.5, Arterial Blood pH 7.339L, Arterial Blood Partial Pressure CO2 48.8H, Arterial Blood Partial Pressure O2 56.1L, Arterial Blood Total CO2 27.2, Arterial Blood HCO3 25.7, Arterial Blood Base Excess -0.9, Arterial Blood Oxygen Saturation 90.1L 03/16/21 22:00: Immature Granulocyte % (Auto) 0.5, Neutrophils (%) (Auto) 73.7H, Lymphocytes (%) (Auto) 14.8L, Monocytes (%) (Auto) 5.4, Eosinophils (%) (Auto) 5.1H, Basophils (%) (Auto) 0.5, Neutrophils # (Auto) 10.8H, Lymphocytes # (Auto) 2.2, Monocytes # (Auto) 0.8, Eosinophils # (Auto) 0.7H, Basophils # (Auto) 0.1, Nucleated Red Blood Cells % (auto) 0.0, Anion Gap 4L, Glomerular Filtration Rate > 60.0, Calcium Level 8.9, Total Bilirubin 0.6, Direct Bilirubin 0.2, Aspartate Amino T ransf (AST/SGOT) 28, Alanine Aminotransferase (ALT/SGPT) 23, Alkaline Phosphatase 92, Total Protein 6.8, Albumin 3.9, Albumin/Globulin Ratio 1.3, Coronavirus (COVID-19)(PCR) NEGATIVE, Influenza Type A (RT-PCR) NEGATIVE, Influenza Type B (RT-PCR) NEGATIVE, Respiratory Syncytial Virus (PCR) NEGATIVE 03/17/21 06:22: Lactic Acid Level 2.2*H, HZ-Hma-U-Type Natriuretic Peptide 292H 03/17/21 10:52: Lactic Acid Followup at 4 Hours 3.5*H 03/17/21 12:53: Lactic Acid Level 3.2*H CBC/BMP Laboratory Tests 03/16/21 22:00 GME ATTESTATION GME ATTESTATION My faculty preceptor for this patient encounter was physically present during the encounter and was fully available. All aspects of the patient interview, examination, medical decision making process, and medical care plan development were reviewed and approved by the faculty preceptor. The faculty preceptor is aware and concurs with the plan as stated in the body of this note and will attest to such by his/her cosignature. ATTENDING NOTE I, Chucky Spencer MD, have independently examined this patient and performed my o wn physical exam, as well as reviewed the documentation and edited where necessary. I have discussed in detail with the resident / student the findings and plan of treatment as documented by the resident / student and edited their note. I agree with their findings and treatment plan and have edited their documentation. I will continue to follow the patient during this hospital stay. ILDA UMAÑA DO Mar 17, 2021 14:50 CHUCKY SPENCER MD Mar 20, 2021 12:25
[2021-03-17 18:10] VITALS: BP 122/83
[2021-03-17 22:00] VITALS: BP 110/76
[2021-03-18 02:00] VITALS: BP 120/78
[2021-03-18] MEDS: IPRATROPIUM 0.5MG/ALBUTEROL 2.5MG INH SOL UD 3ML (DUONEB) NEB SCH ×3 (04:00→11:15)
[2021-03-18] MEDS: cefTRIAXone SOD 2 GM in D5W MINI-BAG PLUS 50 ML IV SCH (04:01)
[2021-03-18] MEDS: AZITHROMYCIN INJ 500 MG, VIAL MATE ADAPTER 1 EACH in NS 250 ML IV SCH (05:20)
[2021-03-18 06:00] VITALS: BP 125/90
[2021-03-18 07:13] LABS: MEAN CORPUSCULAR HEMOGLOBIN 33.6 pg (27.0-33.0); MEAN CORPUSCULAR HGB CONC 33.9 g/dl (32.0-36.5); MEAN CORPUSCULAR VOLUME 99.3 fl (80.0-96.0); PLATELET COUNT, AUTOMATED 181 10^3/uL (150-450); RED BLOOD COUNT 4.43 10^6/uL (4.30-6.10); WHITE BLOOD COUNT 20.6 10^3/uL (4.0-10.0)
[2021-03-18 07:20] LABS: HEMOGLOBIN 14.9 g/dl (13.5-17.5)
[2021-03-18] MEDS: BUDESONIDE 0.5 MG/2 ML INHALATION SUSPENSION INH SCH (07:39)
[2021-03-18 07:45] LABS: BLOOD UREA NITROGEN 13 MG/DL (7-18); CALCIUM LEVEL 8.7 MG/DL (8.5-10.1); CARBON DIOXIDE LEVEL 28 MEQ/L (21-32); CHLORIDE LEVEL 109 MEQ/L (98-107); CREATININE FOR GFR 0.76 MG/DL (0.70-1.30); GLOMERULAR FILTRATION RATE > 60.0 (>60); GLUCOSE, FASTING 89 MG/DL (70-100); POTASSIUM SERUM 4.2 MEQ/L (3.5-5.1); SODIUM LEVEL 141 MEQ/L (136-145)
[2021-03-18] MEDS ORDERED: TIOTROPIUM INHALER/CAPSULE (SPIRIVA) INH SCH (08:00)
[2021-03-18] MEDS ORDERED: SALMETEROL DISKUS 50MCG INHALER (SEREVENT) INH SCH (08:00)
[2021-03-18] MEDS: THIAMINE 100 MG TAB PO SCH (09:00)
[2021-03-18] MEDS: ENOXAPARIN 40MG/0.4ML SYRINGE (J1650 PER 10MG) SC SCH (09:00)
[2021-03-18] MEDS: FOLIC ACID 1 MG TAB PO SCH (09:00)
[2021-03-18] MEDS: MULTIVITAMINS/MINERALS THERAP 1 TAB PO SCH (09:00)
[2021-03-18] MEDS: ASPIRIN 81MG ENTERIC TABLET PO SCH (09:00)
[2021-03-18] MEDS ORDERED: methylPREDNISolone 125MG 2ML VIAL IV SCH (09:00)
[2021-03-18 10:00] VITALS: BP 125/90
[2021-03-18 10:04] LABS: ALBUMIN 3.1 GM/DL (3.2-5.2); ALT/SGPT 19 U/L (12-78); BILIRUBIN,TOTAL 0.3 MG/DL (0.2-1.0); TOTAL PROTEIN 5.8 GM/DL (6.4-8.2)
[2021-03-18 10:09] LABS: BASO # 0.1 10^3/uL (0.0-0.2); BASO % 0.3 % (0.0-1.0); EOS # 0.7 10^3/uL (0.0-0.5); EOS % 3.2 % (0.0-3.0); LYMPH # 3.1 10^3/uL (1.5-5.0); LYMPH % 14.7 % (24.0-44.0); MONO # 1.1 10^3/uL (0.0-0.8); MONO % 5.5 % (2.0-8.0); NEUTROPHILS # 15.7 10^3/uL (1.5-8.5); NEUTROPHILS % 75.9 % (36.0-66.0)
[2021-03-18] MEDS ORDERED: ALBUTEROL 90 MCG/ACT 8GM HFA INHALER INH PRN (10:25)
[2021-03-18] MEDS ORDERED: ANOR1AER INH ×2 (11:30→11:33)
[2021-03-18] MEDS ORDERED: PRED10TA2 PO (11:30)
[2021-03-18] MEDS ORDERED: LEVO750T14 PO (11:30)
--- NOTE | 2021-03-18 18:49 | DS.PDOC ---
Discharge Summary General Date of Admission Mar 17, 2021 at 03:41 Date of Discharge 03/18/2021 Attending Physician: JIGAR WEST MD Discharge Summary PROCEDURES PERFORMED DURING STAY: None. ADMITTING DIAGNOSES: COPD exacerbation COPD GEOFFREY not on CPAP at home Polycythemia Hemochromatosis DISCHARGE DIAGNOSES: COPD GEOFFREY not on CPAP at home Polycythemia Hemochromatosis COMPLICATIONS/CHIEF COMPLAINT: Acute Repiratory Failure,Copd W/Acute Bronchitis. HISTORY OF PRESENT ILLNESS: 50-year-old male patient who presented to the ED complaining of worsening shortness of breath worse with exertion gradually progressed over several months. He reports he has a history of COPD but ran out of the medications about 2 months ago and is only taking albuterol rescue inhaler when needed. Aspect of his symptoms he continued to smoke and drinks alcohol about 1-2 beers per day, however prior to admission he had more drinks. He was admitted under hospitalist service for further management and evaluation. HOSPITAL COURSE: Acute hypoxic/hypercapneic respiratory failure 2/2 to COPD exacerbation -Patient was started on Solu-Medrol, duo nebs, antibiotics [ceftriaxone and azithromycin], Pulmicort. -Patient continued to smoke prior to the admission and is not on any home oxygen. He was saturating at 90% on 2 L of oxygen during the hospital stay. -Initially patient had an elevated white count which was trending down after a day of antibiotics and treatment. -Patient had improvement of symptoms after starting him on inhalers and steroids along with antibiotics. Elevated lactic acid -Upon admission patient had elevated lactic acid he was given fluids. -However there was only minimal improvement with the fluid administration and has lactic level -We suspected the elevated lactic was due to the hypoxia rather than hypotension. -As his hypoxia improved with the medications and inhalers his lactic acidosis resolved GEOFFREY -Patient had nocturnal polysomnography performed at [facility] 07/27/20- they recommended he return to the Sleep center for pressure therapy -The patient states he was told he does not need a CPAP. -Right axis present on EKG Tobacco use disorder -patient currently smokes 10-15 cigarettes per day. -He is not interested in quitting at this time -Started smoking at age 16 and smoked 2ppd until 3 years ago. -I think patient should seriously consider quitting smoking given his COPD and the need of oxygen during the hospitalization. Possible alcohol use disorder -Patient reports that he generally drinks 1-2 beers per day. -He was put on CIWA protocol. -He did not need any Ativan during the hospitalization. DVT prophylaxis: He was on Lovenox to prevent DVT DISCHARGE MEDICATIONS: Please see below. ALLERGIES: Please see below. PHYSICAL EXAMINATION ON DISCHARGE: VITAL SIGNS: Please see below. GENERAL: a well nourished male sitting in no acute distress HEENT: sclera nonicteric, poor dentition, mucous membranes moist, trachea midline, no lymphadenopathy CARDIOVASCULAR: Heart sounds distant, regular rate and rhythm RESPIRATORY: equal air intake bilaterally, distant breath sounds, expiratory wheezes appreciated in posterior bases bilaterally, no rhonchi or rales ABDOMINAL: ventral hernia noted, soft, nontender to palpation in all four quadrants, no organomegaly EXTREMITIES: no lower extremity edema noted on exam. no rashes or ulcerations. Tattoo noted on left upper extremity PSYCHOLOGICAL: alert and oriented x 3, normal affect LABORATORY DATA: Please see below. IMAGING: Chest x-ray 03/16/21: Impression: 1. Question of minimal left pleural effusion. 2. Otherwise stable chest since 11/18/2018 with evidence of COPD. Echocardiogram: 10/14/20: 1. Small pericardial effusion over the lateral wall of the right ventricle and anteriorly. No diastolic chamber collapse. No significant variation of intracardiac velocities. 2. Normal left ventricle internal dimensions, wall thickness, regional wall motion, wall thickening, systolic and diastolic function. 3. Normal right ventricle size and systolic function. 4. Normal size of the atria. PROGNOSIS: Fair ACTIVITY: As tolerated. DIET: Regular diet DISCHARGE PLAN: Home DISPOSITION: Home Health Service. DISCHARGE INSTRUCTIONS: 1. Patient was sent home on levofloxacin 750 mg for 3 more days. 2. Prednisone 20 mg for 5 days, followed by 10 mg for 5 days and stopping after that. 3. Anoro Ellipta 1 puff daily for 30 days. 4. Patient was sent home on 2 L of oxygen with activity. To maintain saturations between 88 to 92% given his COPD. 5. [facility] these [facility]. 6. Continue his rest of home medications. ITEMS TO FOLLOWUP ON ON OUTPATIENT: 1. Follow-up with his geologist within 1 week. 2. Follow-up with PCP within 1 week. DISCHARGE CONDITION: Stable. TIME SPENT ON DISCHARGE: 30 minutes. Vital Signs/I&Os Vital Signs Date Time Temp Pulse Resp B/P (MAP) Pulse Ox O2 Delivery O2 Flow Rate FiO2 03/18/21 10:31 90 Room Air 03/18/21 10:00 98.4 80 16 125/90 (102) 03/18/21 09:00 1.0 I&O- Last 24 Hours up to 6 AM 03/18/21 06:00 Intake Total 2705 ml Output Total 900 ml Balance 1805 ml Laboratory Data Labs 24H Laboratory Tests 2 03/18/21 06:56: Immature Granulocyte % (Auto) 0.4, Neutrophils (%) (Auto) 75.9H, Lymphocytes (%) (Auto) 14.7L, Monocytes (%) (Auto) 5.5, Eosinophils (%) (Auto) 3.2H, Basophils (%) (Auto) 0.3, Neutrophils # (Auto) 15.7H, Lymphocytes # (Auto) 3.1, Monocytes # (Auto) 1.1H, Eosinophils # (Auto) 0.7H, Basophils # (Auto) 0.1, Nucleated Red Blood Cells % (auto) 0.0, Anion Gap 4L, Glomerular Filtration Rate > 60.0, Calcium Level 8.7, Magnesium Level 2.0, Total Bilirubin 0.3, Aspartate Amino Transf (AST/SGOT) 16, Alanine Aminotransferase (ALT/SGPT) 19, Alkaline Phosphatase 77, Total Protein 5.8L, Albumin 3.1#L, Albumin/Globulin Ratio 1.1 03/18/21 07:45: Lactic Acid Level 1.8 CBC/BMP Laboratory Tests 03/18/21 06:56 Discharge Medications Scheduled Aspirin (Aspirin EC) 81 Mg Tabec, 81 MG PO DAILY, (Reported) Cholecalciferol (Vitamin D3) (Vitamin D3) 1,000 Unit Tablet, 1,000 UNITS PO Q2D, (Reported) Prednisone (Prednisone) 10 Mg Tablet, 10 MG PO TAPER Take 2 tabs daily x 5 days, then 1 tabs daily x 5 days, then stop Umeclidinium Brm/Vilanterol Tr (Anoro Ellipta 62.5-25 Mcg INH) 1 Aer Aer, 1 PUFF INH DAILY 1 puff inhaled daily levoFLOXacin (levoFLOXacin) 750 Mg Tablet, 750 MG PO DAILY Allergies Coded Allergies: No Known Allergies (Unverified , 10/15/17) GME ATTESTATION GME ATTESTATION My faculty preceptor for this patient encounter was physically present during the encounter and was fully available. All aspects of the patient interview, examination, medical decision making process, and medical care plan development were reviewed and approved by the faculty preceptor. The faculty preceptor is aware and concurs with the plan as stated in the body of this note and will attest to such by his/her cosignature. ATTENDING NOTE I, Jigar West MD, have independently examined this patient and performed my own physical exam, as well as reviewed the documentation and edited where necessary. I have discussed in detail with the resident / student the findings and plan of treatment as documented by the resident / student and edited their note. I agree with their findings and treatment plan and have edited their d ocumentation. I will continue to follow the patient during this hospital stay. Total time spent on this discharge including coordination of care, chart review, documentation and actual patient care is around 35 minutes Filomena Loja MD Mar 18, 2021 18:49 JIGAR WEST MD Mar 20, 2021 12:34
== END 2021-03-18 14:45 | disposition home health service (06) | DRG 189 ==
LOC: M ED 21:40 → M ED INP 03-17 03:41 → ENRESERV 03-17 04:44 → M MS5PR 03-17 05:35
PROVIDERS: ADMIT Internal Medicine; ATTEND Internal Medicine
DX: J96.01 Acute respiratory failure with hypoxia (principal); J44.1 Chronic obstructive pulmonary disease with (acute) exacerbation; J44.0 Chronic obstructive pulmonary disease with (acute) lower respiratory infection; G47.33 Obstructive sleep apnea (adult) (pediatric); D75.1 Secondary polycythemia; E83.119 Hemochromatosis, unspecified; F17.210 Nicotine dependence, cigarettes, uncomplicated; Z79.82 Long term (current) use of aspirin; Z79.899 Other long term (current) drug therapy; F10.10 Alcohol abuse, uncomplicated

== ENCOUNTER 2021-06-16 07:55 | Emergency (ER) | payer OTHER ==
[~2021-06-16] VITALS: Ht 167.6 cm; Wt 57.7 kg
[~2021-06-16 07:55] MED LIST changes: +D31000TA2 PO; +LEVO750T14 PO
--- OUTSIDE RECORDS SUMMARY | 2021-06-16 08:01 | CCD | Continuity of Care Document ---
Author Author Junior SANCHEZ ANP Organization Unknown Address [address] [place] [address] Phone [phone] Care Team Providers Care Pool Player Name Role Phone Rickey Gordillo MD AUTM Unavailable Cristian Zapata M.D. AUTM [phone] Candace Curtis D.O. AUTM [phone] Jamal Stevenson M.D. AUTM [phone] AUTM Unavailable Problems Description No Information Available Social History Type Date Description Comments Sex Unknown Smokeless Tobacco Former Smokeless Tobacco User, Used 1 time Daily ETOH Use Drinks a couple Beers a day Tobacco Use Start: 08/30/87 Patient is a current smoker, smo kes every day 1 ppd x 30 yrs Smoking Status Reviewed: 05/27/21 Patient is a current smoker, smokes every day 1 ppd x 30 yrs Recent Travel He has traveled to the [facility] and [facility].S. Allergies, Adverse Reactions, Alerts Description No Known Drug Allergies Medications Active Medications SIG Qnty Indications Ordering Provide r Date Anoro Ellipta 62.5-25mcg/Inh Aeros ol 1 puff every day 180units AGNES Yo 12/02/2017 Aspir-[address] 1 by mouth every day Unknown Aleve 220mg Tablets 1 tab by mouth as needed Unknown Albuterol Sulfate HFA 108(90Base) mcg/Act Aerosol 2 puffs four times a day as needed 25.5gm AGNES Velasquez Immunizations Description No Information Available Vital Signs Date Vital Result Comment 05/27/2021 10:00am BP Systolic 120 mmHg BP Diastolic 84 mmHg Heart Rate 83 /min O2 % BldC Oximetry 96 % Height 66 inches 5'6" Weight 132.00 lb BMI (Body Mass Index) 21.3 kg/m2 [place] Body Weight 142 lb Weight 59.875 kg BSA (Body Surface Area) 1.68 m2 12/22/2018 11:14am BP Systolic 142 mmHg BP Diastolic 66 mmHg Heart Rate 92 /min O2 % BldC Oximetry 99 % Respiratory Rate 18 /min Body Temperature 98.8 F Height 66 inches 5'6" [place] Body Weight 142 lb Results Test Acquired Date Facility Test Result H/L Range Note FVL/[place] 05/27/2021 [employer] PDFReport SEE IMAGE FVC-Pred 4.46 L FVC-Pre 3.17 L FVC-%Pred-Pre 71 L FVC-LLN 3.63 L Fev1-Pred 3.49 L Fev1-Pre 1.33 L Fev1-%Pred-Pre 37 L Fev1-LLN 2.79 L Fev6-Pred 4.30 L Fev6-Pre 3.16 L Fev6-%Pred-Pre 73 L Fev6-LLN 3.50 L Ept1owz-Skum 78 % Pnn7lov-Run 42 % Cwh8fzw-%Pred-Pre 53 % Bym9sku-UQY 68 % Jyg6pcv-Ilrv 97 % Bir1upx-Iak 100 % Ibb1mvt-%Pred-Pre 103 % FEFMax-Pred 9.04 L/E/sec FEFMax-Pre 2.09 L/E/sec FEFMax-%Pred-Pre 23 L/E/sec FEFMax-LLN 6.98 L/E/sec Kzj8981-Qnwu 3.21 L/E/sec Jhz9405-Xib 0.63 L/E/sec She0282-%Pred-Pre 19 L/E/sec Qac2911-LAW 1.79 L/E/sec ExpTime-Pre 6.15 sec Wzj9jcp3-Bnbm 81 % Vxx7xkd6-Trz 42 % Vid5vrg6-%Pred-Pre 52 % Rwl4uej4-SJK 72 % Procedures Description No Information Available Medical Devices Description No Information Available Encounters Description No Information Available Assessments Date Code Description Provider 05/27/2021 J44.9 Chronic obstructive pulmonary di sease, unspecified Margarita Sanchez, AGNES 05/27/2021 J43.1 Panlobular emphysema AGNES Yo 05/27/2021 F17.218 Nicotine dependence, cigarettes, with other nicotine-induced disorders AGNES Yo 05/27/2021 J47.9 Bronchiectasis, uncomplicated AGNES Buchanan Plan of Treatment Future Appointment(s):* 06/13/2021 2:00 pm - Pulmonary Lab at [facility] Pulmonary/Thoracic 05/27/2021 - AGNES Yo* J44.9 Chronic obstructive pulmonary disease, unspecified * J43.1 Panlobular emphysema * F17.218 Nicotine dependence, cigarettes, with other nicotine-induced disorders * J47.9 Bronchiectasis, uncomplicated * * New Labs:* PFT W/HGB On Meds, Ordered: 05/27/21 * Follow up:* Return in 1-2 months with PFT Functional Status Functional Condition Comment Date Status Independent with all ADL's Activ e Mental Status Description No Information Available Referrals Refer to Dr Reason for Referral Status Appt Date Margarita Sanchez, A.NRachelPRachel COPD Scheduled 05/27/2021 [facility] Pulmonary [address] [place], [place] [address] [phone] Candace Curtis D.O. COPD Created [facility] [address] [facility], .. [address] [phone]
--- OUTSIDE RECORDS SUMMARY | 2021-06-16 08:01 | CCD ---
Continuity of Care Document (CCD) Created on: 06/13/2021 Oh Junior Liz External Reference #: [id number] : [id number] Sex: Male Author Author [facility] Organization Unknown Address [address] [place] [address] Phone [phone] Care Team Providers Care Field Artillery Basic Name Role Phone Cristian Zapata M.D. AUTM [phone] Candace Curtis D.O. AUTM [phone] Jamal Stevenson M.D. AUTM [phone] AUTM Unavailable Problems Description No Information Available [...] Recent Travel He has traveled to the [facility] and [facility].S. Allergies and adverse reactions Description No Known Drug Allergies Medications Active [...] lb BMI (Body Mass Index) 21.3 kg/m2 [place] Body Weight 142 lb Weight 59.875 kg BSA (Body Surface Area) 1.68 m2 12/22/2018 11:14am BP Systolic 142 mmHg BP Diastolic 66 mmHg Heart Rate 92 /min O2 % BldC Oximetry 99 % Respiratory Rate 18 /min Body Temperature 98.8 F Height 66 inches 5'6" [place] Body Weight 142 lb Results Test Acquired Date Facility Test Result H/L Range Note FVL/[place] 05/27/2021 [employer] PDFReport SEE IMAGE FVC-Pred 4.46 L FVC-Pre 3.17 L FVC-%Pred-Pre 71 L FVC-LLN 3.63 L Fev1-Pred 3.49 L Fev1-Pre 1.33 L Fev1-%Pred-Pre 37 L Fev1-LLN 2.79 L Fev6-Pred 4.30 L Fev6-Pre 3.16 L Fev6-%Pred-Pre 73 L Fev6-LLN 3.50 L Kjw5tfm-Pchi 78 % Fua8xuy-Toh 42 % Ntj5psu-%Pred-Pre 53 % Ved4sep-XSL 68 % Ymn5wpw-Nxdz 97 % Xnq2plw-Uef 100 % Btm2zfu-%Pred-Pre 103 % FEFMax-Pred 9.04 L/E/sec FEFMax-Pre 2.09 L/E/sec FEFMax-%Pred-Pre 23 L/E/sec FEFMax-LLN 6.98 L/E/sec Vxi7244-Arwa 3.21 L/E/sec Udd5265-Rsz 0.63 L/E/sec Aiu9305-%Pred-Pre 19 L/E/sec Xdu7035-ULP 1.79 L/E/sec ExpTime-Pre 6.15 sec Nfl1uuu1-Olet 81 % Zej6ydj9-Gjn 42 % Vmh5ies7-%Pred-Pre 52 % Rlp8dlr6-EUW 72 % Procedures Date Code Description Status 05/27/2021 96858 Tobacco Cessation Counseling Com pleted 05/27/2021 96500 Office/Outpatient New Moderate M DM 45-59 Minutes Completed 05/27/2021 31007 Spirometry Completed Medical Devices Description No Information Available Encounters Type Date Location Provider Dx Diagnosis Office Visit 05/27/2021 10:00a [facility] Pulmonary/Thoracic Margarita To AGNES motley J43.1 Panlobular emphysema F17.218 Nicotine dependence, cigaret cain, w oth disorders J47.9 Bronchiectasis, uncomplicate d G47.33 Obstructive sleep apnea (aldo lt) (pediatric) Assessments Date Code Description Provider 06/13/2021 J43.1 Panlobular emphysema Pulmonary L ab 05/27/2021 J43.1 Panlobular emphysema AGNES Yo 05/27/2021 F17.218 Nicotine dependence, cigarettes, with other nicotine-induced disorders AGNES Yo 05/27/2021 J47.9 Bronchiectasis, uncomplicated AGNES Buchanan 05/27/2021 G47.33 Obstructive sleep apnea (adult) (pediatric) AGNES Yo Plan of Treatment 05/27/2021 - AGNES Yo* J43.1 Panlobular emphysema * F17.218 Nicotine dependence, cigarettes, with other nicotine-induced disorders * J47.9 Bronchiectasis, uncomplicated * G47.33 Obstructive sleep apnea (adult) (pediatric) * * Comments:* 90 minutes of time were spent reviewing extensive office notes, hospital notes, and testing, examining the patient, interviewing the patient, discussing the case with the doctor, reviewing imaging, explaining the plan to the patient, and dictating. * Follow up:* Return in 1-2 months with PFT Functional Status Functional Condition Comment Date Status Independent with all ADL's Activ e Mental Status Description No Information Available Referrals Refer to Reason for Referral Status Appt Margarita Adan, A.N.PRachel COPD Scheduled 05/27/2021 [facility] Pulmonary [address] [place], [place] [address] [phone]
--- OUTSIDE RECORDS SUMMARY | 2021-06-16 08:01 | CCD | Continuity of Care Document ---
Author Author Junior SANCHEZ ANP Organization Unknown Address [address] [place] [address] Phone [phone] Care Team Providers Care Auto Body Service Mechanic Name Role Phone Rickey Gordillo MD AUTM Unavailable Cristian Zapata M.D. AUTM [phone] Candace Curtis D.O. AUTM [phone] Jamal Stevenson M.D. AUTM [phone] AUTM Unavailable Problems Description No Information Available [...] Recent Travel He has traveled to the [facility] and [facility].S. Allergies, Adverse Reactions, Alerts Description No [...] lb BMI (Body Mass Index) 21.3 kg/m2 [place] Body Weight 142 lb Weight 59.875 kg BSA (Body Surface Area) 1.68 m2 12/22/2018 11:14am BP Systolic 142 mmHg BP Diastolic 66 mmHg Heart Rate 92 /min O2 % BldC Oximetry 99 % Respiratory Rate 18 /min Body Temperature 98.8 F Height 66 inches 5'6" [place] Body Weight 142 lb Results Test Acquired Date Facility Test Result H/L Range Note FVL/[place] 05/27/2021 [employer] PDFReport SEE IMAGE FVC-Pred 4.46 L FVC-Pre 3.17 L FVC-%Pred-Pre 71 L FVC-LLN 3.63 L Fev1-Pred 3.49 L Fev1-Pre 1.33 L Fev1-%Pred-Pre 37 L Fev1-LLN 2.79 L Fev6-Pred 4.30 L Fev6-Pre 3.16 L Fev6-%Pred-Pre 73 L Fev6-LLN 3.50 L Bjs5zrr-Zgzt 78 % Wfi1qyu-Bbd 42 % Lqs4nye-%Pred-Pre 53 % Tcg4umf-OWC 68 % Mux9bfv-Tghq 97 % Vgt1seo-Wva 100 % Lhz6mwr-%Pred-Pre 103 % FEFMax-Pred 9.04 L/E/sec FEFMax-Pre 2.09 L/E/sec FEFMax-%Pred-Pre 23 L/E/sec FEFMax-LLN 6.98 L/E/sec Bzi3575-Hfgo 3.21 L/E/sec Bvy8101-Xpf 0.63 L/E/sec Aqt9587-%Pred-Pre 19 L/E/sec Leg4731-WWE 1.79 L/E/sec ExpTime-Pre 6.15 sec Cwn1ydx4-Zwes 81 % Ftd5dcx7-Zmm 42 % Mpw8zfe5-%Pred-Pre 52 % Mog6djo7-LPL 72 % Procedures Date Code Description Status 05/27/2021 89656 Tobacco Cessation Counseling Com pleted 05/27/2021 01854 Office/Outpatient New Moderate M DM 45-59 Minutes Completed 05/27/2021 50022 Spirometry Completed Medical Devices Description No Information Available Encounters Type Date Location Provider Dx Diagnosis Office Visit 05/27/2021 10:00a [facility] Pulmonary/Thoracic Margarita To AGNES motley J43.1 Panlobular emphysema F17.218 Nicotine dependence, cigaret cain, w oth disorders J47.9 Bronchiectasis, uncomplicate d G47.33 Obstructive sleep apnea (aldo lt) (pediatric) Assessments Date Code Description Provider 05/27/2021 J43.1 Panlobular emphysema AGNES Yo 05/27/2021 F17.218 Nicotine dependence, cigarettes, with other nicotine-induced disorders AGNES Yo 05/27/2021 J47.9 Bronchiectasis, uncomplicated AGNES Buchanan 05/27/2021 G47.33 Obstructive sleep apnea (adult) (pediatric) AGNES Yo Plan of Treatment Future Appointment(s):* 06/13/2021 2:00 pm - Pulmonary Lab at [facility] Pulmonary/Thoracic 05/27/2021 - AGNES Yo* J43.1 Panlobular emphysema [...] Reason for Referral Status Appt Margarita Adan, A.N.P. COPD Scheduled 05/27/2021 [facility] Pulmonary [address] [place], [place] [address] [phone] Candace Curtis D.O. COPD Created [facility] [address] [place] [address].. [phone]
--- OUTSIDE RECORDS SUMMARY | 2021-06-16 08:01 | CCD | Continuity of Care Document ---
Author Author [facility] Organization Unknown Address [address] [place] [address] Phone [phone] Care Team Providers Care Career Development Counselor Name Role Phone Cristian Zapata M.D. AUTM [phone] Candace Curtis D.O. AUTM [phone] Jamal Stevenson M.D. AUTM [phone] AUTM Unavailable Problems Description No Information Available [...] Recent Travel He has traveled to the [facility] and [facility].S. Allergies and adverse reactions Description No [...] lb BMI (Body Mass Index) 21.3 kg/m2 [place] Body Weight 142 lb Weight 59.875 kg BSA (Body Surface Area) 1.68 m2 12/22/2018 11:14am BP Systolic 142 mmHg BP Diastolic 66 mmHg Heart Rate 92 /min O2 % BldC Oximetry 99 % Respiratory Rate 18 /min Body Temperature 98.8 F Height 66 inches 5'6" [place] Body Weight 142 lb Results Test Acquired Date Facility Test Result H/L Range Note FVL/[place] 05/27/2021 [employer] PDFReport SEE IMAGE FVC-Pred 4.46 L FVC-Pre 3.17 L FVC-%Pred-Pre 71 L FVC-LLN 3.63 L Fev1-Pred 3.49 L Fev1-Pre 1.33 L Fev1-%Pred-Pre 37 L Fev1-LLN 2.79 L Fev6-Pred 4.30 L Fev6-Pre 3.16 L Fev6-%Pred-Pre 73 L Fev6-LLN 3.50 L Zjq1vnz-Dmix 78 % Hyf7ydj-Nbn 42 % Emv9ktl-%Pred-Pre 53 % Jsh9bjz-IFU 68 % Hyn3bgb-Oeig 97 % Mjg8mbo-Rtb 100 % Zxn2tzi-%Pred-Pre 103 % FEFMax-Pred 9.04 L/E/sec FEFMax-Pre 2.09 L/E/sec FEFMax-%Pred-Pre 23 L/E/sec FEFMax-LLN 6.98 L/E/sec Mpr4512-Znfk 3.21 L/E/sec Lsp0146-Aqm 0.63 L/E/sec Lmb0425-%Pred-Pre 19 L/E/sec Pef4676-CKW 1.79 L/E/sec ExpTime-Pre 6.15 sec Zrb2scn9-Uedn 81 % Jmj4gkf6-Pmf 42 % Srf9juj6-%Pred-Pre 52 % Fhd8jke7-ZJB 72 % Procedures Date Code Description Status 05/27/2021 39172 Tobacco Cessation Counseling Com pleted 05/27/2021 84174 Office/Outpatient New Moderate M DM 45-59 Minutes Completed 05/27/2021 85388 Spirometry Completed Medical Devices Description No Information Available Encounters Type Date Location Provider Dx Diagnosis Office Visit 05/27/2021 10:00a [facility] Pulmonary/Thoracic Margarita To AGNES motley J43.1 Panlobular emphysema F17.218 Nicotine dependence, cigaret cain, w oth disorders J47.9 Bronchiectasis, uncomplicate d G47.33 Obstructive sleep apnea (aldo lt) (pediatric) Assessments Date Code Description Provider 06/13/2021 J43.1 Panlobular emphysema Pulmonary L ab 05/27/2021 J43.1 Panlobular emphysema AGNES oY 05/27/2021 F17.218 Nicotine dependence, cigarettes, with other [...] Appt Margarita Adan, A.N.PRachel COPD Scheduled 05/27/2021 [facility] Pulmonary [address] [place], [place] [address] [phone]
--- OUTSIDE RECORDS SUMMARY | 2021-06-16 08:01 | CCD | Continuity of Care Document ---
Author Author [facility] Organization Unknown Address [address] [place] [address] Phone [phone] Care Team Providers Care Vp Of Customer Experience Strategy Name Role Phone Cristian Zapata M.D. AUTM [phone] Candace Curtis D.O. AUTM [phone] Jamal Stevenson M.D. AUTM [phone] AUTM Unavailable Problems Description No Information Available [...] Recent Travel He has traveled to the [facility] and [facility] [place]. Allergies and adverse reactions Description No Known [...] lb BMI (Body Mass Index) 21.3 kg/m2 [place] Body Weight 142 lb Weight 59.875 kg BSA (Body Surface Area) 1.68 m2 12/22/2018 11:14am BP Systolic 142 mmHg BP Diastolic 66 mmHg Heart Rate 92 /min O2 % BldC Oximetry 99 % Respiratory Rate 18 /min Body Temperature 98.8 F Height 66 inches 5'6" [place] Body Weight 142 lb Results Test Acquired Date Facility Test Result H/L Range Note FVL/[place] 05/27/2021 [employer] PDFReport SEE IMAGE FVC-Pred 4.46 L FVC-Pre 3.17 L FVC-%Pred-Pre 71 L FVC-LLN 3.63 L Fev1-Pred 3.49 L Fev1-Pre 1.33 L Fev1-%Pred-Pre 37 L Fev1-LLN 2.79 L Fev6-Pred 4.30 L Fev6-Pre 3.16 L Fev6-%Pred-Pre 73 L Fev6-LLN 3.50 L Vii2aia-Hhnx 78 % Kcd5vfd-Lqn 42 % Yaz3gax-%Pred-Pre 53 % Aum1ebw-STU 68 % Ygm1bwe-Ydqv 97 % Xcx1bdo-Ybz 100 % Tui3lsq-%Pred-Pre 103 % FEFMax-Pred 9.04 L/E/sec FEFMax-Pre 2.09 L/E/sec FEFMax-%Pred-Pre 23 L/E/sec FEFMax-LLN 6.98 L/E/sec Faj5047-Bpft 3.21 L/E/sec Qfg9811-Nov 0.63 L/E/sec Oqv9535-%Pred-Pre 19 L/E/sec Vse3515-CMH 1.79 L/E/sec ExpTime-Pre 6.15 sec Dln2oug5-Dczi 81 % Tzq6xjm7-Wox 42 % Xis8aem4-%Pred-Pre 52 % Qgu4izi7-XXR 72 % Procedures Date Code Description Status 05/27/2021 35209 Tobacco Cessation Counseling Com pleted 05/27/2021 17683 Office/Outpatient New Moderate M DM 45-59 Minutes Completed 05/27/2021 84853 Spirometry Completed Medical Devices Description No Information Available Encounters Type Date Location Provider Dx Diagnosis Office Visit 05/27/2021 10:00a [facility] Pulmonary/Thoracic Margarita To AGNES motley J43.1 [...] Appt Margarita Adan, A.N.PRachel COPD Scheduled 05/27/2021 [facility] Pulmonary [address] [place], [place] [address] [phone]
--- OUTSIDE RECORDS SUMMARY | 2021-06-16 08:01 | CCD | Continuity of Care Document ---
Author Author [facility] Organization Unknown Address [address] [place] [address] Phone [phone] Care Team Providers Care Digital Experience Manager Name Role Phone Cristian Zapata M.D. AUTM [phone] Candace Curtis D.O. AUTM [phone] Jamal Stevenson M.D. AUTM [phone] AUTM Unavailable Problems Description No Information Available [...] Recent Travel He has traveled to the [facility] and [facility].S. Allergies and adverse reactions Description No [...] lb BMI (Body Mass Index) 21.3 kg/m2 [place] Body Weight 142 lb Weight 59.875 kg BSA (Body Surface Area) 1.68 m2 12/22/2018 11:14am BP Systolic 142 mmHg BP Diastolic 66 mmHg Heart Rate 92 /min O2 % BldC Oximetry 99 % Respiratory Rate 18 /min Body Temperature 98.8 F Height 66 inches 5'6" [place] Body Weight 142 lb Results Test Acquired Date Facility Test Result H/L Range Note FVL/[place] 05/27/2021 [employer] PDFReport SEE IMAGE FVC-Pred 4.46 L FVC-Pre 3.17 L FVC-%Pred-Pre 71 L FVC-LLN 3.63 L Fev1-Pred 3.49 L Fev1-Pre 1.33 L Fev1-%Pred-Pre 37 L Fev1-LLN 2.79 L Fev6-Pred 4.30 L Fev6-Pre 3.16 L Fev6-%Pred-Pre 73 L Fev6-LLN 3.50 L Qxk9dxq-Fzxq 78 % Edr9jbk-Fpo 42 % Omj5hqz-%Pred-Pre 53 % Ovq5bsk-ICO 68 % Ggq2yyh-Xbjw 97 % Aqh3dhu-Mzq 100 % Ulm6vpq-%Pred-Pre 103 % FEFMax-Pred 9.04 L/E/sec FEFMax-Pre 2.09 L/E/sec FEFMax-%Pred-Pre 23 L/E/sec FEFMax-LLN 6.98 L/E/sec Msv2303-Lnpj 3.21 L/E/sec Hmv4930-Ges 0.63 L/E/sec Oxq9743-%Pred-Pre 19 L/E/sec Mnj7787-ODD 1.79 L/E/sec ExpTime-Pre 6.15 sec Gvd2pad2-Uysg 81 % Haa9btv1-Wwh 42 % Rrz9kav1-%Pred-Pre 52 % Kia2ofg8-ETV 72 % Procedures Date Code Description Status 05/27/2021 85678 Tobacco Cessation Counseling Com pleted 05/27/2021 62868 Office/Outpatient New Moderate M DM 45-59 Minutes Completed 05/27/2021 25675 Spirometry Completed Medical Devices Description No Information Available Encounters Type Date Location Provider Dx Diagnosis Office Visit 05/27/2021 10:00a [facility] Pulmonary/Thoracic Margarita To AGNES motley J43.1 Panlobular [...] Appt Margarita Adan, A.N.PRachel COPD Scheduled 05/27/2021 [facility] Pulmonary [address] [place], [place] [address] [phone]
--- OUTSIDE RECORDS SUMMARY | 2021-06-16 08:02 | CCD ---
Author Author [facility] Organization [facility] Address Unknown Phone Unavailable Care Team Providers Care [place] Seamer Name Role Phone SYSTEM IN, NOT IN PROVIDER Unavailable Unavailable Haley, L Margarita STORAGE WORKER Unavailable Unavailable Haley, L Margarita STORAGE WORKER Unavailable Unavailable Haley, L Margarita STORAGE WORKER Unavailable Unavailable Haley, L Margarita STORAGE WORKER Unavailable Unavailable Haley, L Margarita STORAGE WORKER Unavailable Unavailable Haley, L Margarita STORAGE WORKER Unavailable Unavailable Haley, L Margarita STORAGE WORKER Unavailable Unavailable Haley, L Margarita STORAGE WORKER Unavailable Unavailable Haley, L Margarita STORAGE WORKER Unavailable Unavailable Haley, L Margarita STORAGE WORKER Unavailable Unavailable Haley, L Margarita STORAGE WORKER Unavailable Unavailable Haley, L Margarita STORAGE WORKER Unavailable Unavailable Haley, L Margarita STORAGE WORKER Unavailable Unavailable Haley, L Margarita STORAGE WORKER Unavailable Unavailable Haley, L Margarita STORAGE WORKER Unavailable Unavailable Haley, L Margarita STORAGE WORKER Unavailable Unavailable Haley, L Margarita STORAGE WORKER Unavailable Unavailable Haley, L Margarita STORAGE WORKER Unavailable Unavailable Haley, L Margarita STORAGE WORKER Unavailable Unavailable Haley, L Margarita STORAGE WORKER Unavailable Unavailable Haley, L Margarita STORAGE WORKER Unavailable Unavailable Haley, L Margarita STORAGE WORKER Unavailable Unavailable Haley, L Margarita STORAGE WORKER Unavailable Unavailable Haley, L Margarita STORAGE WORKER Unavailable Unavailable Haley, L Margarita STORAGE WORKER Unavailable Unavailable Cristhian Roth MD Unavailable Unavailable Cristhian Roth MD Unavailable Unavailable Cristhian Roth MD Unavailable Unavailable Cristhian Roth MD Unavailable Unavailable Cristhian Roth MD Unavailable Unavailable Cristhian Roth MD Unavailable Unavailable Cristhian Roth MD Unavailable Unavailable Cristhian Roth MD Unavailable Unavailable Cristhian Roth MD Unavailable Unavailable Cristhian Roth MD Unavailable Unavailable Cristhian Roth MD Unavailable Unavailable Cristhian Roth MD Unavailable Unavailable Cristhian Roth MD Unavailable Unavailable Cristhian Roth MD Unavailable Unavailable Cristhian Roth MD Unavailable Unavailable Cristhian Roth MD Unavailable Unavailable Cristhian Roth MD Unavailable Unavailable Cristhian Roth MD Unavailable Unavailable Cristhian Roth MD Unavailable Unavailable Cristhian Roth MD Unavailable Unavailable Cristhian Roth MD Unavailable Unavailable Cristhian Roth MD Unavailable Unavailable Cristhian Roth MD Unavailable Unavailable Cristhian Roth MD Unavailable Unavailable Cristhian Roth MD Unavailable Unavailable Cristhian Roth MD Unavailable Unavailable Cristhian Roth MD Unavailable Unavailable Cristhian Roth MD Unavailable Unavailable Cristhian Roth MD Unavailable Unavailable Cristhian Roth MD Unavailable Unavailable Cristhian Roth MD Unavailable Unavailable Cristhian Roth MD Unavailable Unavailable Cristhian Roth MD Unavailable Unavailable Cristhian Roth MD Unavailable Unavailable Cristhian Roth MD Unavailable Unavailable Cristhian Roth MD Unavailable Unavailable Cristhian Roth MD Unavailable Unavailable Cristhian Roth MD Unavailable Unavailable Cristhian Roth MD Unavailable Unavailable Cristhian Roth MD Unavailable Unavailable Cristhian Roth MD Unavailable Unavailable Cristhian Roth MD Unavailable Unavailable Cristhian Roth MD Unavailable Unavailable Cristhian Roth MD Unavailable Unavailable Cristhian Roth MD Unavailable Unavailable Cristhian Roth MD Unavailable Unavailable Cristhian Roth MD Unavailable Unavailable Cristhian Roth MD Unavailable Unavailable Cristhian Roth MD Unavailable Unavailable Cristhian Roth MD Unavailable Unavailable Cristhian Roth MD Unavailable Unavailable Cristhian Roth MD Unavailable Unavailable Cristhian Roth MD Unavailable Unavailable Cristhian Roth MD Unavailable Unavailable Cristhian Roth MD Unavailable Unavailable Cristhian Roth MD Unavailable Unavailable Cristhian Roth MD Unavailable Unavailable Cristhian Roth MD Unavailable Unavailable Cristhian Roth MD Unavailable Unavailable Re-disclosure Warning The records that you are about to access may contain information from federally-assisted alcohol or drug abuse programs. If such information is present, then the following federally mandated warning applies: This information has been disclosed to you from records protected by federal confidentiality rules (42 CFR part 2). The federal rules prohibit you from making any further disclosure of this information unless further disclosure is expressly permitted by the written consent of the person to whom it pertains or as otherwise permitted by 42 CFR part 2. A general authorization for the release of medical or other information is NOT sufficient for this purpose. The Federal rules restrict any use of the information to criminally investigate or prosecute any alcohol or drug abuse patient.The records that you are about to access may contain highly sensitive health information, the redisclosure of which is protected by Article 27-F of the [facility] Public Health law. If you continue you may have access to information: Regarding HIV / AIDS; Provided by facilities licensed or operated by the [facility] Office of Mental Health; or Provided by the [facility] Office for People With Developmental Disabilities. If such information is present, then the following [facility] mandated warning applies: This information has been disclosed to you from confidential records which are protected by state law. State law prohibits you from making any further disclosure of this information without the specific written consent of the person to whom it pertains, or as otherwise permitted by law. Any unauthorized further disclosure in violation of state law may result in a fine or penitentiary sentence or both. A general authorization for the release of medical or other information is NOT sufficient authorization for further disc losure. Encounters Encounter Providers Location Date Indications Data Source(s ) Outpatient Attender: Humberto Roth MDReferrer: PROVIDER SYST EM IN 07/07/2021 12:00:00 AM [facility] Outpatient Attender: Margarita San/Anali/Mark/Lucie 05/27/2021 10:00:00 AM EDT [facility] ([facility] Immunizations Vaccine Date Status Description Data Source(s) COVID-19 VACCINE Pfizer 04/30/2021 12:00:00 AM EDT completed [facility] Vaccine Series Complete: YESThis Data wa s Submitted to [facility] Via [employer]. COVID-19 VACCINE Pfizer 04/09/2021 12:00:00 AM EDT completed [facility] Vaccine Series Complete: NOThis Data was Submitted to [facility] Via [employer]. Medications Medication Brand Name Start Date Product Form Dose Route Admi nistrative Instructions Pharmacy Instructions Status Indications Reaction Description Data Source(s) 30 ACTUAT umeclidinium 0.0625 MG/ACTUAT / vilanterol 0.025 MG/ACTUAT Dry Powder Inhaler [Anoro] 62.5-25 mcg/actuation UMECLIDINIUM BRM/VILANTEROL TR 03/18/2021 12:00:00 AM EDT blister with device 60 INHALE ONE PUFF BY MOUTH EVERY DAY INHALE ONE PUFF BY MOUTH EVERY DAY SOLD: 04/17/2021 [facility] 30 ACTUAT umeclidinium 0.0625 MG/ACTUAT / vilanterol 0.025 MG/ACTUAT Dry Powder Inhaler [Anoro] 62.5-25 mcg/actuation UMECLIDINIUM BRM/VILANTEROL TR 03/18/2021 12:00:00 AM EDT blister with device 60 INHALE ONE PUFF BY MOUTH EVERY DAY INHALE ONE PUFF BY MOUTH EVERY DAY SOLD: 03/18/2021 [facility] 750 mg 03/18/2021 12:00:00 AM EDT tablet 3 TAKE ONE TABLET BY MOUTH EVERY DAY TAKE ONE TABLET BY MOUTH EVERY DAY SOLD: 03/18/2021 [facility] 10 mg 03/18/2021 12:00:00 AM EDT tablet 15 TAKE 2 TABLETS BY MOUTH DAILY FOR 5 DAYS THEN 1 TAB. DAILY FOR 5 DAYS THEN STOP TAKE 2 TABLETS BY MOUTH DAILY FOR 5 DAYS THEN 1 TAB. DAILY FOR 5 DAYS THEN STOP SOLD: 03/18/2021 [facility] Insurance Providers Payer name Policy type / Coverage type Policy ID Covered alliance party ID Covered alliance party's relationship to barrios Policy Barrios Plan Information [facility] HUMANA [id number] SP [id number] [facility] ACTIVE DUTY [id number] SP [id number] OTHER B [id number] Self [id number] OTHER B [id number] Self [id number] OTHER B [id number] Self [id number] Formerly [facility] (2018) Health Maintenance Organization (HMO) [id number] Self [id number] [facility] [id number] SP [id number] (2018) Commercial [id number] Self [id number] 'S ADMINISTRATION [id number] [facility] OFFICE OF CRIME VICTIMS [facility] [id number] OTHER1 Problems, Conditions, and Diagnoses No Information Surgeries/Procedures Procedure Description Date Indications Data Source(s) Spirometry 05/27/2021 12:00:00 AM EDT M [facility]ENT ([facility]) OFFICE OUTPATIENT NEW 45 MINUTES 05/27/2021 12:00:00 A M EDT [facility] ([facility]) TOBACCO USE CESSATION INTERMEDIATE 3-10 MINUTES 2020 12:00:00 AM EDT [facility] ([facility]) Results ID Date Data Source [id number] 05/27/2021 07:32:00 AM EDT [facility] ([facility]) Name Value Range Interpretation Code Description Data Caitlin rce(s) Supporting Document(s) PDFReport Laboratory test result [facility] ([facility]) FVC-Pred 4.46 L [facility] ([facility]) FVC-Pre 3.17 L [facility] ([facility]) Fev1-Pred 3.49 L [facility] ([facility]) FVC-%Pred-Pre 71 L [facility] ([facility]) FVC-LLN 3.63 L [facility] ([facility]) Fev1-%Pred-Pre 37 L [facility] ([facility]) Fev1-Pre 1.33 L [facility] ([facility]) Fev1-LLN 2.79 L [facility] ([facility]) Fev6-%Pred-Pre 73 L [facility] ([facility]) Fev6-Pre 3.16 L [facility] ([facility]) Fev6-Pred 4.30 L [facility] ([facility], ) Zie8apk-Ebyp 78 % [facility] ([facility]) Nsu3svz-Gyh 42 % [facility] ([facility]) Fev6-LLN 3.50 L [facility] ([facility]) Rqm2rbp-%Pred-Pre 53 % [facility] ([facility]) Jlo8kgf-Fhrc 97 % [facility] ([facility]) Lfo8kno-QJD 68 % [facility] ([facility]) FEFMax-Pred 9.04 L/E/sec [facility] ([facility]) Rtn7nxh-%Pred-Pre 103 % [facility] ([facility]) Bhg7zjc-Baq 100 % [facility] ([facility]) FEFMax-LLN 6.98 L/E/sec [facility] ([facility]) FEFMax-Pre 2.09 L/E/sec [facility] ([facility]) FEFMax-%Pred-Pre 23 L/E/sec [facility] ([facility]) Iyw1917-Jrrs 3.21 L/E/sec [facility] ([facility]) Exl7973-Ezx 0.63 L/E/sec [facility] ([facility]) Rdg2226-%Pred-Pre 19 L/E/sec [facility] ([facility]) Wgu6335-TPC 1.79 L/E/sec [facility] ([facility]) ExpTime-Pre 6.15 sec [facility] ([facility]) Oga2iyc9-Hyyl 81 % [facility] ([facility]) Ocx3vmd0-%Pred-Pre 52 % [facility] ([facility]) Mdq0oyp9-Bwk 42 % [facility] ([facility]) Dqb7frz9-VJY 72 % [facility] ([facility]) ID Date Data Source [id number] 04/10/2021 12:00:00 AM EDT [facility] Name Value Range Interpretation Code Description Data Caitlin rce(s) Supporting Document(s) SARS-CoV-2 (COVID-19) RNA [Presence] in Respiratory specimen by ANDREI with probe detection Negative [facility] This lab was ordered by [facility] and reported by [facility]. ID Date Data Source [id number] 03/16/2021 10:00:00 PM EDT [facility] Name Value Range Interpretation Code Description Data Caitlin rce(s) Supporting Document(s) SARS coronavirus 2 RNA [Presence] in Res piratory specimen by ANDREI with probe detection NEGATIVE [facility] This lab was ordered by [facility] a nd reported by [facility]. Procedure Social History No Information Vital Signs ID Date Data Source UNK Name Value Range Interpretation Code Description Data Source(s) Systolic blood pressure 120 mm[Hg] 120 mm[Hg] M [facility] ([facility]) Diastolic blood pressure 84 mm[Hg] 84 mm[Hg] [facility] ([facility]) Heart rate 83 /min 83 /min [facility] ([facility]) Oxygen saturation in Arterial blood by Pulse oximetry 96 % 96 % [facility] ([facility]) Body height 66 [in_i] 66 [in_i] [facility] ([facility]) 5'6" Body weight 132.00 [lb_av] 132.00 [facility]av[facility] Body mass index (BMI) [Ratio] 21.3 kg/m2 21.3 k g/m2 [facility] ([facility]) [place] body weight 142 [lb_av] 142 [lb_av] [facility] ([facility]) Body weight 59.875 kg 59.875 kg [facility] ([facility]) Body surface area Derived from formula 1.68 m2 1.68 m2 [facility] ([facility])
[2021-06-16] MEDS ORDERED: ANOR1AER PO (08:30)
[2021-06-16] MEDS ORDERED: ALBU83IN INH (08:30)
--- OUTSIDE RECORDS SUMMARY | 2021-06-16 09:37 | CCD ---
Author Author [facility] Organization [facility] Address Unknown Phone Unavailable Care Team Providers Care Front Desk Administrator Name Role Phone SYSTEM IN, NOT IN PROVIDER Unavailable Unavailable Haley, L Margarita LEAD TELLER Unavailable Unavailable Haley, L Margarita LEAD TELLER Unavailable Unavailable Haley, L Margarita LEAD TELLER Unavailable Unavailable Haley, L Margarita LEAD TELLER Unavailable Unavailable Haley, L Margarita LEAD TELLER Unavailable Unavailable Haley, L Margarita LEAD TELLER Unavailable Unavailable Haley, L Margarita LEAD TELLER Unavailable Unavailable Haley, L Margarita LEAD TELLER Unavailable Unavailable Haley, L Margarita LEAD TELLER Unavailable Unavailable Haley, L Margarita LEAD TELLER Unavailable Unavailable Haley, L Margarita LEAD TELLER Unavailable Unavailable Haley, L Margarita LEAD TELLER Unavailable Unavailable Haley, L Margarita LEAD TELLER Unavailable Unavailable Haley, L Margarita LEAD TELLER Unavailable Unavailable Haley, L Margarita LEAD TELLER Unavailable Unavailable Haley, L Margarita LEAD TELLER Unavailable Unavailable Haley, L Margarita LEAD TELLER Unavailable Unavailable Haley, L Margarita LEAD TELLER Unavailable Unavailable Haley, L Margarita LEAD TELLER Unavailable Unavailable Haley, L Margarita LEAD TELLER Unavailable Unavailable Haley, L Margarita LEAD TELLER Unavailable Unavailable Haley, L Margarita LEAD TELLER Unavailable Unavailable Haley, L Margarita LEAD TELLER Unavailable Unavailable Haley, L Margarita LEAD TELLER Unavailable Unavailable Haley, L Margarita LEAD TELLER Unavailable Unavailable Cristhian Roth MD Unavailable Unavailable [...] is protected by Article 27-F of the [facility] Public Health law. If you continue you may have access to information: Regarding HIV / AIDS; Provided by facilities licensed or operated by the [facility] Office of Mental Health; or Provided by the [facility] Office for People With Developmental Disabilities. If such information is present, then the following [facility] mandated warning applies: This information has been [...] law may result in a fine or snf sentence or both. A general authorization for the release of medical or other information is NOT sufficient authorization for further disc losure. Encounters Encounter Providers Location Date Indications Data Source(s ) Outpatient Attender: Humberto Roth MDReferrer: PROVIDER SYST EM IN 07/07/2021 12:00:00 AM [facility] Outpatient Attender: Margarita San/Anali/Mark/Lucie 05/27/2021 10:00:00 AM EDT [facility] ([facility] Immunizations Vaccine Date Status Description Data Source(s) COVID-19 VACCINE Pfizer 04/30/2021 12:00:00 AM EDT completed [facility] Vaccine Series Complete: YESThis Data wa s Submitted to [facility] Via [employer]. COVID-19 VACCINE Pfizer 04/09/2021 12:00:00 AM EDT completed [facility] Vaccine Series Complete: NOThis Data was Submitted to [facility] Via [employer]. Medications Medication Brand Name Start Date Product [...] type / Coverage type Policy ID Covered constitution party ID Covered constitution party's relationship to barrios Policy Barrios Plan Information [facility] HUMANA [id number] SP [id number] [facility] ACTIVE DUTY [id number] SP [id number] OTHER B [id number] Self [id number] OTHER B [id number] Self [id number] OTHER B [id number] Self [id number] OTHER1 [facility] (2018) Health Maintenance Organization (HMO) [id number] Self [id number] [facility] [id number] [facility] (2018) Commercial [id number] Self [id number] [facility] [id number] SP [id number] 'S ADMINISTRATION [id number] SP [id number] [facility] OFFICE OF CRIME VICTIMS [facility] HUMANA [id number] Problems, Conditions, and Diagnoses No Information Surgeries/Procedures Procedure Description Date Indications Data Source(s) Spirometry 05/27/2021 12:00:00 AM EDT M EDENT ([facility]) OFFICE OUTPATIENT NEW 45 MINUTES 05/27/2021 12:00:00 A M EDT [facility] ([facility]) TOBACCO USE CESSATION INTERMEDIATE 3-10 MINUTES 2020 12:00:00 AM EDT [facility] ([facility]) Results ID Date Data Source [id number] 05/27/2021 07:32:00 AM EDT [facility] ([facility]) Name Value Range Interpretation Code Description Data Caitlin rce(s) Supporting Document(s) PDFReport Laboratory test result [facility] ([facility]) FVC-Pred 4.46 L [facility] ([facility]) FVC-Pre 3.17 L [facility] ([facility]) Fev1-Pred 3.49 L [facility] ([facility]) FVC-%Pred-Pre 71 L [facility] ([facility]) FVC-LLN 3.63 L [facility] ([facility]) Fev1-%Pred-Pre 37 L [facility] ([facility]) Fev1-Pre 1.33 L [facility] ([facility]) Fev1-LLN 2.79 L [facility] ([facility]) Fev6-%Pred-Pre 73 L [facility] ([facility]) Fev6-Pre 3.16 L [facility] ([facility], ) Fev6-Pred 4.30 L [facility] ([facility]) Piq9jmk-Odnb 78 % [facility] ([facility]) Obd1xaz-Onm 42 % [facility] ([facility]) Fev6-LLN 3.50 L [facility] ([facility]) Gts1shs-%Pred-Pre 53 % [facility] ([facility]) Ufu8bix-Ipdo 97 % [facility] ([facility]) Cdd2ltt-XUB 68 % [facility] ([facility]) FEFMax-Pred 9.04 L/E/sec [facility] ([facility]) Cbx6kfy-%Pred-Pre 103 % [facility] ([facility]) Kur0zxt-Ome 100 % [facility] ([facility]) FEFMax-LLN 6.98 L/E/sec [facility] ([facility]) FEFMax-Pre 2.09 L/E/sec [facility] ([facility]) FEFMax-%Pred-Pre 23 L/E/sec [facility] ([facility]) Apg8479-Cbvl 3.21 L/E/sec [facility] ([facility]) Vrz5838-Pqx 0.63 L/E/sec [facility] ([facility]) Noq2885-%Pred-Pre 19 L/E/sec [facility] ([facility]) Syx0319-RUS 1.79 L/E/sec [facility] ([facility]) ExpTime-Pre 6.15 sec [facility] ([facility]) Ozt5wib5-Kpde 81 % [facility] ([facility]) Ofy1ruv8-%Pred-Pre 52 % [facility] ([facility]) Wua4sil2-Zmn 42 % [facility] ([facility]) Fzi2mfz7-NMT 72 % [facility] ([facility]) ID Date Data Source [id number] 04/10/2021 12:00:00 AM EDT [facility] Name Value Range Interpretation Code Description Data Caitlin rce(s) Supporting Document(s) SARS-CoV-2 (COVID-19) RNA [Presence] in Respiratory specimen by ANDREI with probe detection Negative [facility] This lab was ordered by [facility] and reported by [facility]. ID Date Data Source [id number] 03/16/2021 10:00:00 PM EDT [facility] Name Value Range Interpretation Code Description Data Caitlin rce(s) Supporting Document(s) SARS coronavirus 2 RNA [Presence] in Res piratory specimen by ANDREI with probe detection NEGATIVE [facility] This lab was ordered by [facility] a nd reported by [facility]. Procedure Social History No Information Vital Signs ID Date Data Source UNK Name Value Range Interpretation Code Description Data Source(s) Systolic blood pressure 120 mm[Hg] 120 mm[Hg] M [facility] ([facility]) Diastolic blood pressure 84 mm[Hg] 84 mm[Hg] [facility] ([facility]) Heart rate 83 /min 83 /min [facility] ([facility]) Oxygen saturation in Arterial blood by Pulse oximetry 96 % 96 % [facility] ([facility]) Body height 66 [in_i] 66 [in_i] [facility] ([facility]) 5'6" Body weight 132.00 [lb_av] 132.00 [[facility]_av[facility] Body mass index (BMI) [Ratio] 21.3 kg/m2 21.3 k g/m2 [facility] ([facility]) [place] body weight 142 [lb_av] 142 [lb_av] [facility] Body weight 59.[address] [facility] ([facility]) Body surface area Derived from formula 1.[address] [facility] ([facility])
--- NOTE | 2021-06-16 09:53 | REP ---
INDICATION: SOB COMPARISON: 03/16/2021 TECHNIQUE: Portable AP view of the chest FINDINGS: The mediastinum and cardiac silhouette are stable and within normal limits for portable technique. The lung rosales demonstrate emphysematous changes without acute consolidation, effusion, or pneumothorax. Skeletal structures are intact. IMPRESSION: No acute cardiopulmonary process appreciated. <Electronically signed by Chi Blevins > 06/16/21 [id number]
[2021-06-16] MEDS ORDERED: PRED10TA2 PO (10:48)
[2021-06-16 10:58] VITALS: BP 128/89
== END 2021-06-16 11:28 | disposition home or self-care (01) ==
LOC: M ED 07:55
DX: J44.9 Chronic obstructive pulmonary disease, unspecified (principal); Z79.82 Long term (current) use of aspirin; Z79.899 Other long term (current) drug therapy

== ENCOUNTER → 2021-11-26 | Outpatient (REF) ==
[~2021-11-26] MED LIST changes: +ALBU83IN INH; +ANOR1AER PO; -CEFD1CAP8 PO; +CEFD300C41 PO; -D31000TA2 PO; +VITA100093 PO
== END ==
LOC: M RAD 13:46